=== PATIENT | female | born 1945 | race Caucasian/White ===

== ENCOUNTER → 2016-07-04 | Outpatient (CLI) | payer MEDICARE, OTHER ==
[2016-07-04 13:59] LABS: Basophils % (A) 1 %; CH 32.1; CHCM 32.6; Eosinophils # (A) 0.1 k/uL (0-0.7); Eosinophils % (A) 3 %; HCT 39.4 % (34.0-46.0); HDW 2.33; Luc # (Auto) 0.14; Luc % (Auto) 3; Lymphocytes # (A) 1.5 k/uL (1.0-4.8); Lymphocytes % (A) 34 %; MCH 32.8 pg (25.0-35.0); MCHC 33.1 g/dL (31.0-37.0); Mean Platelet Volume 6.7; Monocytes # (A) 0.4 k/uL (0-1.0); Monocytes % (A) 10 %; Neutrophils # (A) 2.1 k/uL (1.3-7.7); Neutrophils % (A) 49 %; RBC 3.98 m/uL (3.80-5.40); RDW 12.9 % (11.5-15.5); WBC 4.4 k/uL (3.8-10.6); WBC (Perox) 4.39
[2016-07-04 14:14] LABS: Blood Urea Nitrogen 21 mg/dL (7-17); Non-African American GFR(MDRD) >60 (>60 ml/min/1.73 sqM); Potassium 4.5 mmol/L (3.5-5.1)
== END | disposition home or self-care (01) ==
LOC: LABPAT 13:29
PROVIDERS: ATTEND Anesthesiology
DX: Z01.812 Encounter for preprocedural laboratory examination (principal); Z01.818 Encounter for other preprocedural examination
CPT/HCPCS: 36415; 82565; 84132; 84520; 85025; 86850; 86900; 86901

== ENCOUNTER 2016-07-08 06:08 | Day surgery (SDC) | payer MEDICARE, OTHER ==
[2016-07-02 09:14] VITALS: BMI 23.3
[~2016-07-08 06:08] MED LIST: DEXAMETHASONE SOD PHOSPHATE 10 MG/ML 1 ML VIAL IV ONE; HEPARIN SODIUM,PORCINE 5,000 UNIT/ML 1 ML VIAL SQ ONE; LACTATED RINGERS 1,000 ML IV SCH; ONDANSETRON 4 MG/2 ML VIAL IVP ONE; ceFAZolin 2 GM in SODIUM CHLORIDE 0.9% 100 ML IVPB ONE
[2016-07-08 06:50] LABS: Glucose,Whole Blood 137 mg/dL (75-99)
[2016-07-08] MEDS ORDERED: LIDOCAINE 1% 20 ML VIAL (10MG/ML) FOR IV START INTRADERMA ONE (06:51)
--- NOTE | 2016-07-08 08:02 | P.GSHP ---
History of Present Illness H&P Date: 07/08/16 Chief Complaint: Incisional hernia This a 70-year-old female developed an incisional hernia. The hernias located near the umbilicus. - Constitutional Constitutional: Reports as per HPI Past Medical History Past Medical History: CVA/TIA, Diabetes Mellitus, Hyperlipidemia, Hypertension, Osteoarthritis (OA) Additional Past Medical History / Comment(s): VARICOSE VEINS, hx bowel obstruction and had TIA after surgery in 11/2015- some loss of memory, irregular bowel movements, blockage of left carotid artery, hx anemia History of Any Multi-Drug Resistant Organisms: None Reported Past Surgical History: Adenoidectomy, Appendectomy, Bowel Resection, Breast Surgery, Tonsillectomy Additional Past Surgical History / Comment(s): MARANDA BREAST Biopsy, lumpectomy rt lumpectomy, HEMORRHOIDECTOMY, fx LEFT ANKLE ORIF, RT THUMB TENDON, NEUROMA RT FOOT, LEFT OVARY AND TUBE removed. , LASER SURG RIGHT LEG VEINS., bowel surgery for twisted bowel 1960, bowel resection 11/2015, Past Anesthesia/Blood Transfusion Reactions: No Reported Reaction Additional Past Anesthesia/Blood Transfusion Reaction / Comment(s): . Past Psychological History: Anxiety Smoking Status: Former smoker Past Alcohol Use History: None Reported Additional Past Alcohol Use History / Comment(s): quit smoking 1991,smoked approx 25 yrs- 1ppd Past Drug Use History: None Reported - Past Family History Father Family Medical History: Cancer Additional Family Medical History / Comment(s): KIDNEY CA Mother Family Medical History: Cancer Additional Family Medical History / Comment(s): OVARIAN CA, LEUKEMIA Medications and Allergies Home Medications Medication Instructions Recorded Confirmed Type Aspirin EC [Ecotrin Low Dose] 81 mg PO W/SUPPER 08/03/14 07/08/16 History Atorvastatin [Lipitor] 40 mg PO HS 08/03/14 07/08/16 History Cyanocobalamin [Vitamin B-12] 500 mcg PO QAM 09/14/14 07/08/16 History Ferrous Sulfate [Iron (65 MG 325 mg PO DAILY 09/14/14 07/08/16 History Elemental)] ALPRAZolam [Xanax] 0.25 mg PO TID 07/02/16 07/08/16 History Apixaban [Eliquis] 5 mg PO BID 07/02/16 07/08/16 History Cholecalciferol [Vitamin D3] 1,000 unit PO DAILY 07/02/16 07/08/16 History Cranberry Fruit Extract [Cranberry] 500 mg PO W/SUPPER 07/02/16 07/08/16 History Diltiazem Cd [Cardizem Cd] 180 mg PO DAILY 07/02/16 07/08/16 History Insulin Lispro [humaLOG Kwikpen] 100 unit SQ ACHS PRN 07/02/16 07/08/16 History Lisinopril [Zestril] 10 mg PO DAILY 07/02/16 07/08/16 History [place]-3 Acid Ethyl Esters [Lovaza] 2 gm PO BID 07/02/16 07/08/16 History Potassium Chloride [Klor-Con 20] 20 meq PO DAILY 07/02/16 07/08/16 History Sertraline [Zoloft] 50 mg PO BID 07/02/16 07/08/16 History Sucralfate [Carafate] 2 tsp PO BID 07/02/16 07/08/16 History Tamsulosin [Flomax] 0.4 mg PO DAILY 07/02/16 07/08/16 History sulfaSALAzine [Azulfidine] 500 mg PO Q6HR 07/02/16 07/08/16 History Allergies Allergy/AdvReac Type Severity Reaction Status Date / Time amoxicillin trihydrate Allergy Unknown Rash/Hives Verified 07/08/16 06:28 [From Augmentin] naproxen Allergy Unknown Itching Verified 07/08/16 06:28 nystatin Allergy Unknown Red Verified 07/08/16 06:28 Burning Skin and Rash potassium clavulanate Allergy Unknown Rash/Hives Verified 07/08/16 06:28 [From Augmentin] potassium clavulanate Allergy Rash/Hives Uncoded 07/08/16 06:28 Surgical - Exam Vital Signs Temp Pulse Resp BP Pulse Ox 97.9 F 95 16 140/79 98 07/08/16 06:33 07/08/16 06:33 07/08/16 06:33 07/08/16 06:33 07/08/16 06:33 - General well developed, no distress - Eyes PERRL - ENT normal pinna - Respiratory normal expansion - Cardiovascular Rhythm: regular - Abdomen Abdomen: soft, non tender Hernia: incisional, reducible Results - Labs Abnormal Lab Results - Last 24 Hours (Table) 07/08/16 Range/Units 06:43 POC Glucose (mg/dL) 137 H (75-99) mg/dL Assessment and Plan Plan: Incisional hernia. We'll perform laparoscopic robotic assistance repair.
[2016-07-08] MEDS ORDERED: PROPOFOL 10 MG/ML 20 ML VIAL IV ONE (08:05)
[2016-07-08] MEDS ORDERED: PHENYLEPHRINE-0.9% NACL SYG 1 MG/10 ML SYRINGE ONE (08:05)
[2016-07-08] MEDS ORDERED: MIDAZOLAM 2 MG/2 ML VIAL ONE (08:05)
[2016-07-08] MEDS ORDERED: fentaNYL (PF) 50 MCG/ML 2 ML AMP ONE (08:05)
[2016-07-08] MEDS ORDERED: ROCURONIUM BROMIDE 10 MG/ML 10 ML VIAL IV ONE (08:05)
[2016-07-08] MEDS ORDERED: NEOSTIGMINE 1 MG/ML 10 ML VIAL ONE (08:05)
[2016-07-08] MEDS ORDERED: GLYCOPYRROLATE 0.2 MG/ML 2 ML VIAL ONE (08:05)
[2016-07-08] MEDS ORDERED: ePHEDrine 50 MG/ML 1 ML AMP ONE (08:05)
[2016-07-08] MEDS ORDERED: LIDOCAINE 1% INJ 10MG/ML (20 ML MDV) ONE (08:05)
[2016-07-08] MEDS ORDERED: SUCCINYLCHOLINE CHLORIDE 100 MG/5 ML SYR IV ONE (08:05)
[2016-07-08] MEDS ORDERED: BUPIVACAIN-EPI 0.25%-1:200,000 30 ML VIAL SQ ONE (08:48)
[2016-07-08] MEDS ORDERED: LACTATED RINGERS 1,000 ML IV ONE (09:26)
--- NOTE | 2016-07-08 09:52 | P.OP ---
Date of Procedure: 07/08/16 Preoperative Diagnosis: Incisional hernia Postoperative Diagnosis: Incisional hernia Procedure(s) Performed: Laparoscopic robotic-assisted repair of incisional hernia Implants: Anesthesia: TALA Surgeon: Curt Morelos Estimated Blood Loss (ml): 5 Pathology: none sent Condition: stable Disposition: PACU Indications for Procedure: Operative Findings: Description of Procedure: The patient's placed on the operating table in the supine position. She received general anesthesia. Her abdomen was prepped and draped in usual sterile fashion. A skin incision was made in the left upper quadrant and using a 5 mm optical trocar under direct visitation. Cavity is entered. Upon entering the peritoneal cavity the abdomen insufflated and then the laparoscope was placed cavity. Next a 8 mm robotic trochars placed in the left lower quadrant and a 12 mm trochars placed in the left lateral position. The original 5 ohmmeter trocar was exchanged for a 8 mm trocar. The patient's placed in left side up position. The patient was undocked the robot. The patient had a large incisional hernia. The fascial defect was then closed using oh stranding suture. The repair was then buttressed with ventral light ST mesh this is secured with 20 the lock suture. The patient was then undocked the robot and the needles were retrieved. The 12 mm trocar site was closed with the Avery Venegas suture passer. The trochars withdrawn. Skin was closed interrupted 3-0 Monocryl suture. Dermabond was applied. Patient top she will was sent to recovery in stable condition.
[2016-07-08 10:11] VITALS: TEMP 97.2
[2016-07-08] MEDS: HYDROmorphone 1 MG/ML 1 ML SYRINGE IVP PRN ×3 (10:29→10:53)
[2016-07-08 11:33] VITALS: RESP 16
[2016-07-08 11:57] LABS: Glucose,Whole Blood 235 mg/dL (75-99)
[2016-07-08] MEDS ORDERED: INSULIN LISPRO (humaLOG) 300 UNIT/3 ML VIAL SQ ONE (12:00)
[2016-07-08 13:07] VITALS: BP 109/60; PULSE 95
== END 2016-07-08 13:46 | disposition home or self-care (01) ==
LOC: OR 06:08
PROVIDERS: ATTEND Surgery
DX: K43.2 Incisional hernia without obstruction or gangrene (principal); Z86.73 Personal history of transient ischemic attack (TIA), and cerebral infarction without residual deficits; E11.9 Type 2 diabetes mellitus without complications; E78.5 Hyperlipidemia, unspecified; M19.90 Unspecified osteoarthritis, unspecified site; F41.9 Anxiety disorder, unspecified; Z87.891 Personal history of nicotine dependence; Z79.02 Long term (current) use of antithrombotics/antiplatelets; Z79.82 Long term (current) use of aspirin; Z79.899 Other long term (current) drug therapy; Z88.0 Allergy status to penicillin; Z88.8 Allergy status to other drugs, medicaments and biological substances
CPT/HCPCS: 49654; C1781; J2250; J1644; J1100; J2710; J0690; J2405; J2001; J3010; J1170; J2370; J0330; J2704; 74020; 86850; 86900; 86901

== ENCOUNTER 2016-07-11 18:20 | Inpatient (IN) | payer MEDICARE, OTHER ==
[2016-07-11] MEDS ORDERED: SODIUM CHLORIDE 0.9% 1,000 ML IV STA (18:50)
--- NOTE | 2016-07-11 19:02 | ED ---
Abdominal Pain HPI - General Source: patient, RN notes reviewed Mode of arrival: ambulatory Limitations: no limitations <Ashley Tang - Last Filed: 07/11/16 21:17> <Ravindra Ordonez - Last Filed: 07/11/16 21:19> - General Chief Complaint: Abdominal Pain Stated Complaint: constipated Time Seen by Provider: 07/11/16 18:41 - History of Present Illness Initial Comments: 70-year-old female presents to the emergency department with a chief complaint of constipation. Patient has been having constipation for the last 2 days. Patient had a ventral hernia repaired by Dr. valenzuela on Thursday. Patient states she's taken laxatives and stool softener with no bowel movement. Patient states she just feels as if she needs to go to the bathroom. Patient had states she did feel nauseous no vomiting. Patient denies any fever chills. Patient states her abdomen is now more painful than it has since the procedure. Patient states she was concerned about not using the bathroom so she thought that she should be seen.Patient denies any recent fever, chills, shortness of breath, chest pain, back pain, vomiting, numbness or tingling, dysuriaconstipation or diarrhea, headaches or visual changes, or any other current symptoms. (Ashley Tang) - Related Data Home Medications Medication Instructions Recorded Confirmed Aspirin EC [Ecotrin Low Dose] 81 mg PO W/SUPPER 08/03/14 07/11/16 Atorvastatin [Lipitor] 40 mg PO HS 08/03/14 07/11/16 Cyanocobalamin [Vitamin B-12] 500 mcg PO HS 09/14/14 07/11/16 Ferrous Sulfate [Iron (65 MG 325 mg PO DAILY 09/14/14 07/11/16 Elemental)] ALPRAZolam [Xanax] 0.25 mg PO TID PRN 07/02/16 07/11/16 Apixaban [Eliquis] 5 mg PO BID 07/02/16 07/11/16 Cholecalciferol [Vitamin D3] 1,000 unit PO DAILY 07/02/16 07/11/16 Cranberry Fruit Extract [Cranberry] 500 mg PO W/SUPPER 07/02/16 07/11/16 Diltiazem Cd [Cardizem Cd] 180 mg PO DAILY 07/02/16 07/11/16 Insulin Lispro [humaLOG Kwikpen] See Protocol SQ ACHS PRN 07/02/16 07/11/16 Lisinopril [Zestril] 10 mg PO DAILY 07/02/16 07/11/16 [place]-3 Acid Ethyl Esters [Lovaza] 2 gm PO BID 07/02/16 07/11/16 Potassium Chloride [Klor-Con 20] 20 meq PO DAILY 07/02/16 07/11/16 Sertraline [Zoloft] 100 mg PO DAILY 07/02/16 07/11/16 Tamsulosin [Flomax] 0.4 mg PO DAILY 07/02/16 07/11/16 sulfaSALAzine [Azulfidine] 500 mg PO Q6HR 07/02/16 07/11/16 HYDROcodone/APAP 7.5-325MG [[place] 1 tab PO TID PRN 07/11/16 07/11/16 7.5] Sucralfate [Carafate] 2 gm PO BID 07/11/16 07/11/16 Allergies Allergy/AdvReac Type Severity Reaction Status Date / Time amoxicillin trihydrate Allergy Unknown Rash/Hives Verified 07/11/16 18:52 [From Augmentin] naproxen Allergy Unknown Itching Verified 07/11/16 18:52 nystatin Allergy Unknown Red Verified 07/11/16 18:52 Burning Skin and Rash potassium clavulanate Allergy Unknown Rash/Hives Verified 07/11/16 18:52 [From Augmentin] potassium clavulanate Allergy Rash/Hives Uncoded 07/08/16 06:28 Review of Systems ROS Other: All systems not noted in ROS Statement are negative. <Ashley Tang - Last Filed: 07/11/16 21:17> ROS Other: All systems not noted in ROS Statement are negative. <Ravindra Ordonez - Last Filed: 07/11/16 21:19> ROS Statement: Those systems with pertinent positive or pertinent negative responses have been documented in the HPI. Past Medical History Past Medical History: CVA/TIA, Diabetes Mellitus, Hyperlipidemia, Hypertension, Osteoarthritis (OA) Additional Past Medical History / Comment(s): VARICOSE VEINS, hx bowel obstruction and had TIA after surgery in 11/2015- some loss of memory, irregular bowel movements, blockage of left carotid artery, hx anemia History of Any Multi-Drug Resistant Organisms: None Reported Past Surgical History: Adenoidectomy, Appendectomy, Bowel Resection, Breast Surgery, Hernia Repair, Tonsillectomy Additional Past Surgical History / Comment(s): MARANDA BREAST Biopsy, lumpectomy rt lumpectomy, HEMORRHOIDECTOMY, fx LEFT ANKLE ORIF, RT THUMB TENDON, NEUROMA RT FOOT, LEFT OVARY AND TUBE removed. , LASER SURG RIGHT LEG VEINS., bowel surgery for twisted bowel 1960, bowel resection 11/2015, Past Anesthesia/Blood Transfusion Reactions: No Reported Reaction Additional Past Anesthesia/Blood Transfusion Reaction / Comment(s): . Past Psychological History: Anxiety Smoking Status: Former smoker Past Alcohol Use History: None Reported Additional Past Alcohol Use History / Comment(s): quit smoking 1991,smoked approx 25 yrs- 1ppd Past Drug Use History: None Reported - Past Family History Father Family Medical History: Cancer Additional Family Medical History / Comment(s): KIDNEY CA Mother Family Medical History: Cancer Additional Family Medical History / Comment(s): OVARIAN CA, LEUKEMIA <Ashley Tang - Last Filed: 07/11/16 21:17> General Exam Limitations: no limitations <Ashley Tang - Last Filed: 07/11/16 21:17> <Ravindra Ordonez - Last Filed: 07/11/16 21:19> - General Exam Comments Initial Comments: General: The patient is awake and alert, in no distress, and does not appear acutely ill. Eye: Pupils are equal, round and reactive to light, extra-ocular movements are intact; there is normal conjunctiva bilaterally. No signs of icterus. Ears, nose, mouth and throat: There are moist mucous membranes and no oral lesions. Neck: The neck is supple, there is no tenderness. Cardiovascular: There is a regular rate and rhythm. No murmur, rub or gallop is appreciated. Respiratory: Lungs are clear to auscultation, respirations are non-labored, breath sounds are equal. No wheezes, stridor, rales, or rhonchi. Gastrointestinal: Well-healing surgical incisions., Soft, non-distended, non- tender abdomen without masses or organomegaly noted. There is no rebound or guarding present. No CVA tenderness. Bowel sounds are unremarkable. Back: There is no tenderness to palpation in the midline. There is no obvious deformity. No rashes noted. Musculoskeletal: Normal ROM, no tenderness, There is no pedal edema. There is no calf tenderness or swelling. Sensation intact. Pulses equal bilaterally 2+. Neurological: CN II-XII intact, There are no obvious motor or sensory deficits. Coordination appears grossly intact. Speech is normal. Skin: Skin is warm and dry and no rashes or lesions are noted. Psychiatric: Cooperative, appropriate mood & affect, normal judgment. (Ashley Tang) Course <Ashley Tang - Last Filed: 07/11/16 21:17> <Ravindra Ordonez - Last Filed: 07/11/16 21:19> Vital Signs 07/11/16 07/11/16 07/11/16 18:31 19:14 20:44 Temperature 97.7 F 98.1 F 98.5 F Pulse Rate 100 87 78 Respiratory 16 18 18 Rate Blood Pressure 123/69 120/66 129/62 O2 Sat by Pulse 97 95 96 Oximetry - Reevaluation(s) Reevaluation #1: 07/11/16 21:18 I did do a [id number]-qu-rvia evaluation the patient did discuss findings with her and her rounds area patient does demonstrate some tenderness palpation of the abdomen with some distention the examination the abdomen reveals no evidence of wound dehiscence no evidence of infection there is increased tympany however. The imaging does show evidence of ileus there is a question will transition at the splenic flexure. Patient be admitted for IV hydration she is not nauseated at this time she is passing a small amount of gas from her rectum. She'll be admitted for further evaluation. I did discuss case with Dr. Bautista. (Ravindra Ordonez) Medical Decision Making - Lab Data Result diagrams: 07/11/16 18:57 07/11/16 18:57 - Radiology Data Radiology results: report reviewed, image reviewed <Ashley Tang - Last Filed: 07/11/16 21:17> - Lab Data Result diagrams: 07/11/16 18:57 07/11/16 18:57 <Ravindra Ordonez - Last Filed: 07/11/16 21:19> - Medical Decision Making 70-year-old female presents for constipation. At this time CAT scan is reviewed additional ileus. At this time we did talk to on-call surgeon regarding the case. We did discuss admission. We'll continue IV hydration for the patient. Patient family in agreement with the plan. (Ashley Tang) - Lab Data Lab Results 07/11/16 07/11/16 Range/Units 18:57 18:57 WBC 6.9 (3.8-10.6) k/uL RBC 3.70 L (3.80-5.40) m/uL Hgb 12.0 (11.4-16.0) gm/dL Hct 35.4 (34.0-46.0) % MCV 95.5 (80.0-100.0) fL MCH 32.3 (25.0-35.0) pg MCHC 33.9 (31.0-37.0) g/dL RDW 13.0 (11.5-15.5) % Plt Count 279 (150-450) k/uL Neutrophils % 66 % Lymphocytes % 19 % Monocytes % 9 % Eosinophils % 4 % Basophils % 1 % Neutrophils # 4.6 (1.3-7.7) k/uL Lymphocytes # 1.3 (1.0-4.8) k/uL Monocytes # 0.6 (0-1.0) k/uL Eosinophils # 0.3 (0-0.7) k/uL Basophils # 0.0 (0-0.2) k/uL Sodium 134 L (137-145) mmol/L Potassium 4.6 (3.5-5.1) mmol/L Chloride 98 (98-107) mmol/L Carbon Dioxide 24 (22-30) mmol/L Anion Gap 12 mmol/L BUN 18 H (7-17) mg/dL Creatinine 0.60 (0.52-1.04) mg/dL Est GFR (MDRD) Af Amer >60 (>60 ml/min/1.73 sqM) Est GFR (MDRD) Non-Af >60 (>60 ml/min/1.73 sqM) Glucose 129 H (74-99) mg/dL Calcium 9.7 (8.4-10.2) mg/dL Total Bilirubin 0.4 (0.2-1.3) mg/dL AST 33 (14-36) U/L ALT 56 H (9-52) U/L Alkaline Phosphatase 102 (38-126) U/L Total Protein 6.8 (6.3-8.2) g/dL Albumin 4.1 (3.5-5.0) g/dL Disposition Time of Disposition: 20:46 Decision Date: 07/11/16 Decision Time: 20:46 <Ashley Tang - Last Filed: 07/11/16 21:17> <Ravindra Ordonez - Last Filed: 07/11/16 21:19> Clinical Impression: Ileus, postoperative, Abdominal pain, Constipation Disposition: ADMITTED IP TO THIS [facility] Condition: Stable Referrals: Ravindra Weaver MD [Primary Care Provider] - 1-2 days
[2016-07-11 19:05] LABS: Basophils % (A) 1 %; CH 32.2; CHCM 33.9; Eosinophils # (A) 0.3 k/uL (0-0.7); Eosinophils % (A) 4 %; HCT 35.4 % (34.0-46.0); HDW 2.24; Luc # (Auto) 0.14; Luc % (Auto) 2; Lymphocytes # (A) 1.3 k/uL (1.0-4.8); Lymphocytes % (A) 19 %; MCH 32.3 pg (25.0-35.0); MCHC 33.9 g/dL (31.0-37.0); MCV 95.5 fL (80.0-100.0); Mean Platelet Volume 7.2; Monocytes # (A) 0.6 k/uL (0-1.0); Monocytes % (A) 9 %; Neutrophils # (A) 4.6 k/uL (1.3-7.7); Neutrophils % (A) 66 %; WBC 6.9 k/uL (3.8-10.6); WBC (Perox) 7.59
[2016-07-11 19:20] LABS: ALT 56 U/L (9-52); AST 33 U/L (14-36); Alkaline Phosphatase 102 U/L (38-126); Anion Gap 12 mmol/L; Blood Urea Nitrogen 18 mg/dL (7-17); Calcium 9.7 mg/dL (8.4-10.2); Carbon Dioxide 24 mmol/L (22-30); Chloride 98 mmol/L (98-107); Glucose 129 mg/dL (74-99); Non-African American GFR(MDRD) >60 (>60 ml/min/1.73 sqM); Potassium 4.6 mmol/L (3.5-5.1); Sodium 134 mmol/L (137-145); Total Bilirubin 0.4 mg/dL (0.2-1.3); Total Protein 6.8 g/dL (6.3-8.2)
[2016-07-11] MEDS ORDERED: RX INFO: IV CONTRAST WAS GIVEN 1 EACH MISC MISCELLANE PRN (19:24)
--- NOTE | 2016-07-11 19:45 | XR ---
EXAMINATION TYPE: XR abdomen 2V DATE OF EXAM: 07/11/2016 COMPARISON: NONE INDICATION: Pain TECHNIQUE: 2 view abdomen upright and supine views FINDINGS: Are prominent loops of colon in supine view. In the upright view there appear to be some prominent ai r-fluid levels with dilated small bowel within the midabdomen in addition to the air-fluid levels wit hin the colon. Correlate for ileus versus obstruction. Psoas margins are normal. No organomegaly is present. IMPRESSION: 1. Prominent loops of bowel which contain air-fluid levels in both colon and dilated small bowel loop s. Partial small bowel obstruction should be considered. Ileus should be considered. Follow-up is rec ommended.
--- NOTE | 2016-07-11 20:37 | CT ---
EXAMINATION TYPE: CT abdomen pelvis w con DATE OF EXAM: 07/11/2016 COMPARISON: NONE INDICATION: Hernia repair 3 days ago, no bowel movement since. DLP: 1122.00 mGycm, Automated exposure control for dose reduction was used. CONTRAST: 100 mL of Omnipaque 300. Study performed without Oral Contrast TECHNIQUE: Axial images were obtained from above the diaphragm to the pubic rami in the axial plane a t 5 mm thick sections. Reconstructed images are reviewed on the computer in the coronal plane. FINDINGS: Limited CT sections are obtained the lung bases. The lung bases are clear. CT ABDOMEN: Liver: Normal Spleen: There is a hypodense area with peripheral enhancement could be a hemangioma or complex cyst. Other etiologies are not excluded. This area appears to enhance symmetrically with the spleen on yasmani yed images suggesting hemangioma. Pancreas: Pancreas atrophy is present. Adrenal glands: The adrenal glands are normal. Gallbladder: Surgically absent Kidneys: No masses are evident. No hydronephrosis is present. No cysts are present. Delayed images were obtained through the kidneys, which remain unremarkable. Aorta: Vascular calcification is within the aorta. Inferior vena cava: Normal. CT PELVIS: The colon is dilated and fluid-filled. Small bowel loops are prominent and dilated in the pelvis . Th ere appears to be a transition in the mid sigmoid colon. This appears to be best visualized on sequen ce 5 image 61 right hemipelvis. A segment of sigmoid colon visualized sequence 3 image 59 through 62 has an small caliber which dilates to a larger caliber with debris just proximal. This is over a paula rt segment which appears to have small caliber descending colon. However at the splenic flexure the c olon is dilated which is another area of transition. A right lower quadrant anastomosis of the colon appears widely open. Appendix: Not visualized Urinary bladder: Normal as visualized Genitourinary structures: Uterus appears normal. Adnexal regions are clear. Osseous structures: No suspicious lytic or sclerotic lesions. Facet degenerative changes are in the l ower lumbar spine. Within the anterior abdominal wall is a hypodense collection as well as small air-fluid level. There may be association with a rent in the anterior abdominal wall. Series 3 image 42. Hematoma or seroma is favored. Incarcerated mesenteric fat could be considered. No loops of bowel are identified. IMPRESSIONS: 1. Dilated small bowel loops and colon. Postop ileus could be considered. 2. Zones of transition appear to be at the splenic flexure within the proximal descending colon and w ithin the right lower quadrant sigmoid colon. The anastomosis does not appear to be a focal transitio n. 3. Anterior abdominal wall seroma or hematoma. Mesenteric fat hernia is considered less likely. No as sociated loop of bowel is evident.
[2016-07-11] MEDS ORDERED: ONDANSETRON 4 MG/2 ML VIAL IVP PRN (20:47)
[2016-07-11] MEDS ORDERED: NALOXONE 0.4 MG/ML 1 ML VIAL IV PRN (20:47)
[2016-07-11] MEDS ORDERED: ACETAMINOPHEN TAB 325 MG TAB PO PRN (20:47)
[2016-07-11] MEDS ORDERED: ALPRAZolam 0.25 MG TAB PO PRN (20:48)
[2016-07-11] MEDS ORDERED: NON-FORMULARY DRUG (Omega-3 Acid Ethyl Esters [Lovaza] 2 GM) PO SCH (21:00)
[2016-07-11 22:20] VITALS: BMI 23.7
[2016-07-11] MEDS: ATORVASTATIN 40 MG TAB PO SCH (22:33)
[2016-07-11] MEDS: SODIUM CHLORIDE 0.9% 1,000 ML IV SCH (22:33)
[2016-07-11] MEDS: CYANOCOBALAMIN 500 MCG TAB PO SCH (22:33)
[2016-07-11] MEDS: SUCRALFATE 1 GM TAB PO SCH (22:34)
[2016-07-11] MEDS: APIXABAN 5 MG TAB PO SCH (22:34)
[2016-07-11] MEDS: sulfaSALAzine 500 MG TAB PO SCH (22:40)
[2016-07-11] MEDS: HYDROmorphone 1 MG/ML 1 ML SYRINGE IV PRN (22:41)
[2016-07-12] MEDS: HYDROmorphone 1 MG/ML 1 ML SYRINGE IV PRN (03:27)
[2016-07-12] MEDS: SODIUM CHLORIDE 0.9% 1,000 ML IV SCH ×3 (05:04→21:04)
[2016-07-12] MEDS: sulfaSALAzine 500 MG TAB PO SCH ×4 (05:24→23:19)
[2016-07-12 07:09] LABS: Glucose,Whole Blood 133 mg/dL (75-99)
[2016-07-12] MEDS: HYDROcodone/APAP 5-325MG 1 EACH TAB PO PRN ×3 (07:19→21:05)
[2016-07-12] MEDS: APIXABAN 5 MG TAB PO SCH ×2 (09:30→20:58)
[2016-07-12] MEDS: POTASSIUM CHLORIDE ER 20 MEQ TAB.ER PO SCH (09:30)
[2016-07-12] MEDS: PANTOPRAZOLE 40 MG/10 ML VIAL IV SCH (09:30)
[2016-07-12] MEDS: DILTIAZEM CD 180 MG CAP.ER.24H PO SCH (09:30)
[2016-07-12] MEDS: CHOLECALCIFEROL 1,000 UNIT TAB PO SCH (09:31)
[2016-07-12] MEDS: SERTRALINE 100 MG TAB PO SCH (09:31)
[2016-07-12] MEDS: FERROUS SULFATE 325 MG TAB PO SCH (09:31)
[2016-07-12] MEDS: TAMSULOSIN 0.4 MG CAP.ER.24H PO SCH (09:31)
[2016-07-12] MEDS: SUCRALFATE 1 GM TAB PO SCH ×2 (09:31→20:58)
[2016-07-12] MEDS: LISINOPRIL 10 MG TAB PO SCH (10:39)
[2016-07-12 11:34] LABS: Glucose,Whole Blood 150 mg/dL (75-99)
--- NOTE | 2016-07-12 11:38 | P.GSHP ---
History of Present Illness H&P Date: 07/12/16 Chief Complaint: Abdominal pain, constipation The patient is status post ventral herniorrhaphy. She presented to the emergency room because she was having increasing pain in her bowels have not moved. Some nausea but no vomiting. No chest pain or shortness of breath. She feels somewhat better today. - Review of Systems All systems: negative Past Medical History Past Medical History: CVA/TIA, Diabetes Mellitus, Hyperlipidemia, Hypertension, Osteoarthritis (OA) Additional Past Medical History / Comment(s): VARICOSE VEINS, hx bowel obstruction and had TIA after surgery in 11/2015- some loss of memory, irregular bowel movements, blockage of left carotid artery, hx anemia History of Any Multi-Drug Resistant Organisms: None Reported Past Surgical History: Adenoidectomy, Appendectomy, Bowel Resection, Breast Surgery, Hernia Repair, Tonsillectomy Additional Past Surgical History / Comment(s): MARANDA BREAST Biopsy, lumpectomy rt lumpectomy, HEMORRHOIDECTOMY, fx LEFT ANKLE ORIF, RT THUMB TENDON, NEUROMA RT FOOT, LEFT OVARY AND TUBE removed. , LASER SURG RIGHT LEG VEINS., bowel surgery for twisted bowel 1960, bowel resection 11/2015, bleeding ulcer Past Anesthesia/Blood Transfusion Reactions: No Reported Reaction Additional Past Anesthesia/Blood Transfusion Reaction / Comment(s): . Past Psychological History: Anxiety Smoking Status: Former smoker Past Alcohol Use History: None Reported Additional Past Alcohol Use History / Comment(s): quit smoking 1991,smoked approx 25 yrs- 1ppd Past Drug Use History: None Reported - Past Family History Father Family Medical History: Cancer Additional Family Medical History / Comment(s): KIDNEY CA Mother Family Medical History: Cancer Additional Family Medical History / Comment(s): OVARIAN CA, LEUKEMIA Medications and Allergies Home Medications Medication Instructions Recorded Confirmed Type Aspirin EC [Ecotrin Low Dose] 81 mg PO W/SUPPER 08/03/14 07/11/16 History Atorvastatin [Lipitor] 40 mg PO HS 08/03/14 07/11/16 History Cyanocobalamin [Vitamin B-12] 500 mcg PO HS 09/14/14 07/11/16 History Ferrous Sulfate [Iron (65 MG 325 mg PO DAILY 09/14/14 07/11/16 History Elemental)] ALPRAZolam [Xanax] 0.25 mg PO TID PRN 07/02/16 07/11/16 History Apixaban [Eliquis] 5 mg PO BID 07/02/16 07/11/16 History Cholecalciferol [Vitamin D3] 1,000 unit PO DAILY 07/02/16 07/11/16 History Cranberry Fruit Extract [Cranberry] 500 mg PO W/SUPPER 07/02/16 07/11/16 History Diltiazem Cd [Cardizem Cd] 180 mg PO DAILY 07/02/16 07/11/16 History Insulin Lispro [humaLOG Kwikpen] See Protocol SQ ACHS PRN 07/02/16 07/11/16 History Lisinopril [Zestril] 10 mg PO DAILY 07/02/16 07/11/16 History [place]-3 Acid Ethyl Esters [Lovaza] 2 gm PO BID 07/02/16 07/11/16 History Potassium Chloride [Klor-Con 20] 20 meq PO DAILY 07/02/16 07/11/16 History Sertraline [Zoloft] 100 mg PO DAILY 07/02/16 07/11/16 History Tamsulosin [Flomax] 0.4 mg PO DAILY 07/02/16 07/11/16 History sulfaSALAzine [Azulfidine] 500 mg PO Q6HR 07/02/16 07/11/16 History HYDROcodone/APAP 7.5-325MG [[place] 1 tab PO TID PRN 07/11/16 07/11/16 History 7.5] Sucralfate [Carafate] 2 gm PO BID 07/11/16 07/11/16 History Allergies Allergy/AdvReac Type Severity Reaction Status Date / Time amoxicillin trihydrate Allergy Unknown Rash/Hives Verified 07/11/16 22:20 [From Augmentin] naproxen Allergy Unknown Itching Verified 07/11/16 22:20 nystatin Allergy Unknown Red Verified 07/11/16 22:20 Burning Skin and Rash potassium clavulanate Allergy Unknown Rash/Hives Verified 07/11/16 22:20 [From Augmentin] potassium clavulanate Allergy Rash/Hives Uncoded 07/11/16 22:20 Surgical - Exam Osteopathic Statement: *. No significant issues noted on an osteopathic structural exam other than those noted in the History and Physical/Consult. Vital Signs Temp Pulse Resp BP Pulse Ox 97.7 F 100 16 123/69 97 07/11/16 18:31 07/11/16 18:31 07/11/16 18:31 07/11/16 18:31 07/11/16 18:31 - General well developed, well nourished, no distress - Eyes normal ocular movement - ENT normal mucosa - Neck trachea midline - Respiratory normal respiratory effort, clear to auscultation absent: wheezing - Cardiovascular Rhythm: regular - Abdomen Abdomen: soft, tender (Mainly incisional), bowel sounds, distended (She somewhat distended with tympany to percussion) Results - Labs 07/11/16 18:57 07/11/16 18:57 Abnormal Lab Results - Last 24 Hours (Table) 07/11/16 07/11/16 07/12/16 Range/Units 18:57 18:57 07:06 RBC 3.70 L (3.80-5.40) m/uL Sodium 134 L (137-145) mmol/L BUN 18 H (7-17) mg/dL Glucose 129 H (74-99) mg/dL POC Glucose (mg/dL) 133 H (75-99) mg/dL ALT 56 H (9-52) U/L 07/12/16 Range/Units 11:30 RBC (3.80-5.40) m/uL Sodium (137-145) mmol/L BUN (7-17) mg/dL Glucose (74-99) mg/dL POC Glucose (mg/dL) 150 H (75-99) mg/dL ALT (9-52) U/L Diabetes panel 07/11/16 Range/Units 18:57 Sodium 134 L (137-145) mmol/L Potassium 4.6 (3.5-5.1) mmol/L Chloride 98 (98-107) mmol/L Carbon Dioxide 24 (22-30) mmol/L BUN 18 H (7-17) mg/dL Creatinine 0.60 (0.52-1.04) mg/dL Glucose 129 H (74-99) mg/dL Calcium 9.7 (8.4-10.2) mg/dL AST 33 (14-36) U/L ALT 56 H (9-52) U/L Alkaline Phosphatase 102 (38-126) U/L Total Protein 6.8 (6.3-8.2) g/dL Albumin 4.1 (3.5-5.0) g/dL Calcium panel 07/11/16 Range/Units 18:57 Calcium 9.7 (8.4-10.2) mg/dL Albumin 4.1 (3.5-5.0) g/dL Pituitary panel 07/11/16 Range/Units 18:57 Sodium 134 L (137-145) mmol/L Potassium 4.6 (3.5-5.1) mmol/L Chloride 98 (98-107) mmol/L Carbon Dioxide 24 (22-30) mmol/L BUN 18 H (7-17) mg/dL Creatinine 0.60 (0.52-1.04) mg/dL Glucose 129 H (74-99) mg/dL Calcium 9.7 (8.4-10.2) mg/dL Adrenal panel 07/11/16 Range/Units 18:57 Sodium 134 L (137-145) mmol/L Potassium 4.6 (3.5-5.1) mmol/L Chloride 98 (98-107) mmol/L Carbon Dioxide 24 (22-30) mmol/L BUN 18 H (7-17) mg/dL Creatinine 0.60 (0.52-1.04) mg/dL Glucose 129 H (74-99) mg/dL Calcium 9.7 (8.4-10.2) mg/dL Total Bilirubin 0.4 (0.2-1.3) mg/dL AST 33 (14-36) U/L ALT 56 H (9-52) U/L Alkaline Phosphatase 102 (38-126) U/L Total Protein 6.8 (6.3-8.2) g/dL Albumin 4.1 (3.5-5.0) g/dL - Imaging CT scan - abdomen: report reviewed, image reviewed Assessment and Plan (1) Abdominal pain Status: Acute (2) Constipation Status: Acute (3) Ileus, postoperative Status: Acute Plan: There are dilated loops of small bowel along with a incisional seroma. We will recheck an abdominal x-ray on her and start her on some clear liquids. Advance as tolerated. Hopefully ready to go home by tomorrow.
[2016-07-12 12:18] LABS: CH 31.7; CHCM 32.5; HCT 35.9 % (34.0-46.0); HDW 2.26; HGB 11.8 gm/dL (11.4-16.0); MCH 32.3 pg (25.0-35.0); MCHC 32.9 g/dL (31.0-37.0); MCV 98.1 fL (80.0-100.0); RBC 3.66 m/uL (3.80-5.40); RDW 12.5 % (11.5-15.5)
--- NOTE | 2016-07-12 12:22 | XR ---
EXAMINATION TYPE: XR abdomen 2V DATE OF EXAM: 07/12/2016 COMPARISON: July 11, 2016 HISTORY: Pain TECHNIQUE: Supine and upright views of the abdomen are submitted. FINDINGS: Again noted is dilated small and large bowel. The findings are nonspecific and could reflect ileus. O bstruction is not excluded. No convincing evidence for pneumoperitoneum. No unusual calcifications. The lung bases are clear. The osseous structures are intact. IMPRESSION: 1. Again noted is dilated small and large bowel. The findings are nonspecific and could reflect ileu s. Obstruction is not excluded.
[2016-07-12 12:26] LABS: Anion Gap 11 mmol/L; Blood Urea Nitrogen 16 mg/dL (7-17); Calcium 9.2 mg/dL (8.4-10.2); Carbon Dioxide 22 mmol/L (22-30); Chloride 104 mmol/L (98-107); Glucose 136 mg/dL (74-99); Non-African American GFR(MDRD) >60 (>60 ml/min/1.73 sqM); Potassium 4.6 mmol/L (3.5-5.1); Sodium 137 mmol/L (137-145)
[2016-07-12 16:40] LABS: Glucose,Whole Blood 123 mg/dL (75-99)
[2016-07-12] MEDS ORDERED: NON-FORMULARY DRUG (Cranberry Fruit Extract [Cranberry] 500 MG) PO SCH (17:30)
[2016-07-12] MEDS: ASPIRIN 81 MG CHEW PO SCH (17:56)
--- NOTE | 2016-07-12 18:09 | CONS ---
DATE OF CONSULTATION: 07/12/2016 REASON FOR CONSULTATION: Medical management requested by Dr. Bautista. CONSULTATION: This is a 70-year-old patient of Dr. Weaver who underwent on 07/08/[address]nia repair by Dr. Morelos. Patient since left the hospital, never had a bowel movement and abdomen is distended, even though she is taking a diet. Decided to come into the ER. Patient was given laxatives here and had a very large bowel movement. Patient's chronic stable medical conditions include hyperlipidemia, hypertension, nonobstructive carotid artery disease on the left side, anxiety, osteoarthritis. Patient had no fever. No nausea or vomiting. Patient otherwise on a soft diet. REVIEW OF SYSTEMS: CONSTITUTIONAL: Tired. HEENT: None. RESPIRATORY: None. CARDIOVASCULAR: None. GASTROINTESTINAL: As above. GENITOURINARY: None. MUSCULOSKELETAL: Aches and pains in multiple joints. DERMATOLOGIC: None. HEMATOLOGIC: None. LYMPHATIC: None. PSYCHIATRY: Anxiety. NEUROLOGICAL: None. Past history of stroke hyperlipidemia, hypertension, nonobstructive left carotid stenosis, anxiety, osteoarthritis. PAST SURGICAL HISTORY: Adenoidectomy, appendectomy, bowel resection, breast surgery, hernia repair, tonsillectomy, bilateral breast biopsy, right breast lumpectomy, hemorrhoidectomy, left ankle ORIF, right thumb tendon repair, neuroma, right foot surgery, left ovary and tube removed, laser surgery right leg veins, bowel surgery for twisted bowel, bowel resection, bleeding peptic ulcer. SOCIAL HISTORY: The patient smoked a pack a day for 25 years; stopped in 1991, alcohol none. Patient lives with 3 kids at home and a son who is handicapped. Family history of kidney cancer. HOME MEDICATIONS: Vitamin B12 one hundred mcg p.o. daily, cranberry 500 mcg with supper, Lipitor 40 mg q.h.s., aspirin 81 mg at supper, Carafate 2 gm p.o. b.i.d., [place] 7.5 one tablet p.o. t.i.d., Zoloft 100 mg p.o. daily, Azulfidine 500 mg p.o. q.6, Flomax 0.4 mg p.o. daily, potassium 20 mEq p.o. daily, Lovaza 2 gm p.o. b.i.d., Zestril 10 mg daily, iron 325 p.o. daily, Cardizem CD 180 mg p.o. daily, vitamin D3 one thousand units p.o. daily, Eliquis 5 mg p.o. b.i.d., Xanax 0.25 p.o. t.i.d. p.r.n. ALLERGIES: AMOXICILLIN, NAPROXEN, NYSTATIN, POTASSIUM. On examination, temperature 97.9, pulse 83, respirations 16, blood pressure 120/69, pulse ox 97% on room air. GENERAL APPEARANCE: Average build, lying in bed, not in distress. EYES: Pupils equal, conjunctivae normal. HEENT: Oral cavity normal. NECK: JVD not raised. Mass not palpable. RESPIRATORY: Effort normal. LUNGS: Fair air entry. CARDIOVASCULAR: First and second sounds normal. No edema. ABDOMEN: Slightly minimal tenderness. Soft, liver and spleen not palpable. LYMPHATIC: No lymph node palpable in neck or axillae. PSYCHIATRY: Alert and oriented x3. Mood and affect normal. NEUROLOGICAL: Pupils equal. Cranial nerves grossly intact. Power and sensation grossly intact. MUSCULOSKELETAL: Evidence of osteoarthritis in multiple joints. INVESTIGATIONS: White count 6, hemoglobin 11.8, potassium 4.6. CT scan of the abdomen initially showed dilated small bowel loops and colon, anterior wall seroma or hematoma. ASSESSMENT: 1. Acute postoperative ileus, responded well to laxative and patient has had a large bowel movement. 2. Anterior abdominal wall seroma/hematoma. 3. Hyperlipidemia. 4. Essential hypertension. 5. Anxiety, not otherwise specified. 6. Osteoarthritis of multiple joints, bilateral. PLAN: Home medications are resumed. Patient responded well to laxatives. Care was discussed with the patient, encouraged to ambulate. Diet has been advanced per Surgery. Care was discussed with the patient. Thank you, Dr. Bautista.
[2016-07-12 20:14] LABS: Glucose,Whole Blood 187 mg/dL (75-99)
[2016-07-12] MEDS: CYANOCOBALAMIN 500 MCG TAB PO SCH (20:58)
[2016-07-12] MEDS: ATORVASTATIN 40 MG TAB PO SCH (20:58)
[2016-07-12] MEDS: INSULIN LISPRO (humaLOG) 300 UNIT/3 ML VIAL SQ SCH (20:59)
[2016-07-13] MEDS: SODIUM CHLORIDE 0.9% 1,000 ML IV SCH (03:56)
[2016-07-13] MEDS: sulfaSALAzine 500 MG TAB PO SCH ×4 (05:54→23:17)
[2016-07-13 06:56] LABS: Glucose,Whole Blood 128 mg/dL (75-99)
[2016-07-13] MEDS: INSULIN LISPRO (humaLOG) 300 UNIT/3 ML VIAL SQ SCH ×4 (07:17→20:07)
[2016-07-13] MEDS: LISINOPRIL 10 MG TAB PO SCH (07:43)
[2016-07-13] MEDS: DILTIAZEM CD 180 MG CAP.ER.24H PO SCH (07:43)
[2016-07-13] MEDS: APIXABAN 5 MG TAB PO SCH ×2 (07:43→20:09)
[2016-07-13] MEDS: PANTOPRAZOLE 40 MG/10 ML VIAL IV SCH (07:43)
[2016-07-13] MEDS: POTASSIUM CHLORIDE ER 20 MEQ TAB.ER PO SCH (07:43)
[2016-07-13] MEDS: HYDROcodone/APAP 5-325MG 1 EACH TAB PO PRN ×3 (07:44→18:27)
[2016-07-13] MEDS: SERTRALINE 100 MG TAB PO SCH (07:44)
[2016-07-13] MEDS: SUCRALFATE 1 GM TAB PO SCH ×2 (07:44→20:09)
[2016-07-13] MEDS: TAMSULOSIN 0.4 MG CAP.ER.24H PO SCH (08:51)
--- NOTE | 2016-07-13 10:31 | P.PN ---
Subjective The patient's feeling much better. She's had several loose bowel movements. No nausea or vomiting. She's having expected incisional pain. Objective - Vital Signs Vital signs: Vital Signs Temp 97.8 F 07/13/16 07:00 Pulse 86 07/13/16 07:00 Resp 16 07/13/16 07:00 BP 138/74 07/13/16 07:00 Pulse Ox 95 07/13/16 07:00 Intake & Output 07/12/16 07/13/16 07/13/16 18:59 06:59 18:59 Intake Total 200 1440 236 Balance 200 1440 236 Intake: IV 1440 Sodium Chloride 0.9% 1, 1440 000 ml @ 120 mls/hr IV . Q8H20M MCKENNA Rx#:[id number] Oral 200 236 Other: Voiding Method Toilet Toilet # Voids 2 2 # Bowel Movements 1 2 - Constitutional General appearance: Present: cooperative, no acute distress - Respiratory Respiratory: bilateral: CTA - Gastrointestinal Gastrointestinal Comment(s): She has firmness under the midline scar where the hernia had been reduced. Likely seroma General gastrointestinal: Present: normal bowel sounds, soft, tenderness ( Incisional) - Labs CBC & Chem 7: 07/12/16 09:53 07/12/16 09:53 Labs: Abnormal Lab Results - Last 24 Hours (Table) 07/12/16 07/12/16 07/12/16 Range/Units 09:53 09:53 11:30 RBC 3.66 L (3.80-5.40) m/uL Glucose 136 H (74-99) mg/dL POC Glucose (mg/dL) 150 H (75-99) mg/dL 07/12/16 07/12/16 07/13/16 Range/Units 16:38 20:12 06:53 RBC (3.80-5.40) m/uL Glucose (74-99) mg/dL POC Glucose (mg/dL) 123 H 187 H 128 H (75-99) mg/dL Assessment and Plan (1) Abdominal pain Status: Acute (2) Constipation Status: Acute (3) Ileus, postoperative Status: Acute Plan: Monitor diet. Progressing well. Likely discharge tomorrow.
[2016-07-13 11:18] LABS: Glucose,Whole Blood 205 mg/dL (75-99)
[2016-07-13] MEDS: FERROUS SULFATE 325 MG TAB PO SCH (12:48)
[2016-07-13] MEDS: CHOLECALCIFEROL 1,000 UNIT TAB PO SCH (12:48)
[2016-07-13 16:35] LABS: Glucose,Whole Blood 187 mg/dL (75-99)
[2016-07-13] MEDS: ASPIRIN 81 MG CHEW PO SCH (18:04)
[2016-07-13] MEDS: ATORVASTATIN 40 MG TAB PO SCH (20:09)
[2016-07-13] MEDS: CYANOCOBALAMIN 500 MCG TAB PO SCH (20:09)
[2016-07-13 20:24] LABS: Glucose,Whole Blood 182 mg/dL (75-99)
--- NOTE | 2016-07-13 22:58 | PN ---
DATE OF SERVICE: 07/13/2016 PRESENTING COMPLAINT: Medical management, status postop ileus. INTERVAL HISTORY: This is a patient who had an acute postop ileus status post anterior abdominal wall hernia repair. Today patient is awake, sitting up in bed. No acute distress noted or voiced. States she feels much better than she did when she was admitted. Tolerating her diet. Walking around in the room with no difficulties. Review of systems done for constitutional, cardiovascular, GI, pulmonary, with relevant findings as above. CURRENT MEDICATIONS: 1. [place] 5/325. 2. Eliquis 5 mg p.o. b.i.d. 3. Lipitor p.o. 40 mg at bedtime. 4. Cardizem CD 180 mg p.o. daily. 5. Vistaril 10 mg p.o. daily. 6. Zoloft 100 mg p.o. daily. 7. Flomax 0.4 mg p.o. daily. PHYSICAL EXAMINATION: VITAL SIGNS: Temperature 97.8, pulse 86, respirations 16, blood pressure 138/74, oxygen saturation 95% on room air. GENERAL APPEARANCE: Patient is sitting up in the bed, awake, alert, in no acute distress noted or voiced. EYES: Pupils equal. Conjunctivae normal. NECK: JVD not raised. Mass not palpable. Respiratory effort normal. LUNGS: Diminished breath sounds bilaterally. CARDIOVASCULAR: First and second sounds noted. No edema. ABDOMEN: Mildly distended. Soft, tender to palpation at the operative site. Liver and spleen not palpable. PSYCHIATRY: Alert and oriented x3. Mood and affect are normal. INVESTIGATIONS: Hemoglobin 11.8, sodium 137, BUN 16, creatinine 0.70. Accu-Cheks noted. ASSESSMENT: 1. Acute postoperative ileus, responding well to laxatives and patient has had large bowel movements. 2. Anterior abdominal wall seroma/hematoma. 3. Hyperlipidemia. 4. Essential hypertension. 5. Anxiety, not otherwise specified. 6. Osteoarthritis of multiple joints bilaterally. PLAN: Tentative plan for patient to go home tomorrow. Patient responded well to laxatives. Patient again encouraged to ambulate. Will follow. The patient was seen and examined by nurse practitioner, Fide Whitney, and all elements of the case discussed with attending, Dr. Cabrera.
[2016-07-14] MEDS: HYDROcodone/APAP 5-325MG 1 EACH TAB PO PRN ×4 (00:03→12:28)
[2016-07-14] MEDS: SODIUM CHLORIDE 0.9% 1,000 ML IV SCH ×3 (01:14→07:53)
[2016-07-14] MEDS: sulfaSALAzine 500 MG TAB PO SCH ×2 (05:32→11:45)
[2016-07-14 07:35] LABS: Glucose,Whole Blood 138 mg/dL (75-99)
[2016-07-14] MEDS: INSULIN LISPRO (humaLOG) 300 UNIT/3 ML VIAL SQ SCH ×2 (07:44→12:47)
[2016-07-14] MEDS: DILTIAZEM CD 180 MG CAP.ER.24H PO SCH (07:45)
[2016-07-14] MEDS: APIXABAN 5 MG TAB PO SCH (07:45)
[2016-07-14] MEDS: LISINOPRIL 10 MG TAB PO SCH (07:45)
[2016-07-14] MEDS: POTASSIUM CHLORIDE ER 20 MEQ TAB.ER PO SCH (07:46)
[2016-07-14] MEDS: SUCRALFATE 1 GM TAB PO SCH (07:46)
[2016-07-14] MEDS: SERTRALINE 100 MG TAB PO SCH (07:46)
[2016-07-14] MEDS: TAMSULOSIN 0.4 MG CAP.ER.24H PO SCH (07:47)
[2016-07-14 07:50] VITALS: BP 138/80; PULSE 84; RESP 20; TEMP 96.9
[2016-07-14] MEDS: PANTOPRAZOLE 40 MG/10 ML VIAL IV SCH (07:53)
--- NOTE | 2016-07-14 10:03 | PN ---
DATE OF SERVICE: 07/13/2016 ATTENDING NOTE: This patient was seen and examined by me on 07/13/16. I reviewed the note of my nurse practitioner, Ms. Loyd. Discussed additional findings as below. This is a patient status post incisional hernia repair, admitted with postop ileus. The patient has a good response to laxatives. Tolerating a diet. Had good bowel movement. Has got a binder in place. ON EXAMINATION: ABDOMEN: Soft, nontender. Bowel sounds are present. Lungs are clear. ASSESSMENT: Status post postoperative ileus, responded well to laxatives. Other medical conditions stable. PLAN: Patient encouraged to ambulate, doing well.
[2016-07-14 11:38] LABS: Glucose,Whole Blood 188 mg/dL (75-99)
[2016-07-14] MEDS: CHOLECALCIFEROL 1,000 UNIT TAB PO SCH (11:45)
[2016-07-14] MEDS: FERROUS SULFATE 325 MG TAB PO SCH (11:45)
--- NOTE | 2016-07-14 11:56 | P.PN ---
Progress Note - Text The patient doing better today. Her constipation is improved. She has minimal abdominal pain. Patiently discharged home today
--- NOTE | 2016-07-14 11:57 | P.DS ---
Providers Date of admission: 07/11/16 21:19 Expected date of discharge: 07/14/16 Attending physician: Lisa Bautista Consults: 07/12/16 11:32 Consult Physician Routine Consulting Provider: Stephen Cabrera Consult Reason/Comments: medical management Do you want consulting provider notified?: Yes Primary care physician: Ravindra Rivera [facility] Hospital Course: This a 70-year-old female who was readmitted to the hospital for complaints of abdominal pain and constipation. Patient was status post laparoscopic robotic- assisted repair of incisional hernia. Patient developed severe constipation causing abdominal pain she is admitted hospital. Please see hospital chart for details. Patient Condition at Discharge: Good Plan - Discharge Summary New Discharge Prescriptions: No Action Atorvastatin [Lipitor] 40 mg PO HS Aspirin EC [Ecotrin Low Dose] 81 mg PO W/SUPPER Cyanocobalamin [Vitamin B-12] 500 mcg PO HS Ferrous Sulfate [Iron (65 MG Elemental)] 325 mg PO DAILY ALPRAZolam [Xanax] 0.25 mg PO TID PRN PRN Reason: Anxiety Apixaban [Eliquis] 5 mg PO BID Cholecalciferol [Vitamin D3] 1,000 unit PO DAILY Cranberry Fruit Extract [Cranberry] 500 mg PO W/SUPPER Diltiazem Cd [Cardizem Cd] 180 mg PO DAILY Insulin Lispro [humaLOG Kwikpen] See Protocol SQ ACHS PRN PRN Reason: SUGAR-HIGH Lisinopril [Zestril] 10 mg PO DAILY [place]-3 Acid Ethyl Esters [Lovaza] 2 gm PO BID Potassium Chloride [Klor-Con 20] 20 meq PO DAILY Sertraline [Zoloft] 100 mg PO DAILY sulfaSALAzine [Azulfidine] 500 mg PO Q6HR Tamsulosin [Flomax] 0.4 mg PO DAILY Sucralfate [Carafate] 2 gm PO BID HYDROcodone/APAP 7.5-325MG [[place] 7.5] 1 tab PO TID PRN PRN Reason: Pain Discharge Medication List Aspirin EC [Ecotrin Low Dose] 81 mg PO W/SUPPER 08/03/14 [History] Atorvastatin [Lipitor] 40 mg PO HS 08/03/14 [History] Cyanocobalamin [Vitamin B-12] 500 mcg PO HS 09/14/14 [History] Ferrous Sulfate [Iron (65 MG Elemental)] 325 mg PO DAILY 09/14/14 [History] ALPRAZolam [Xanax] 0.25 mg PO TID PRN 07/02/16 [History] Apixaban [Eliquis] 5 mg PO BID 07/02/16 [History] Cholecalciferol [Vitamin D3] 1,000 unit PO DAILY 07/02/16 [History] Cranberry Fruit Extract [Cranberry] 500 mg PO W/SUPPER 07/02/16 [History] Diltiazem Cd [Cardizem Cd] 180 mg PO DAILY 07/02/16 [History] Insulin Lispro [humaLOG Kwikpen] See Protocol SQ ACHS PRN 07/02/16 [History] Lisinopril [Zestril] 10 mg PO DAILY 07/02/16 [History] [place]-3 Acid Ethyl Esters [Lovaza] 2 gm PO BID 07/02/16 [History] Potassium Chloride [Klor-Con 20] 20 meq PO DAILY 07/02/16 [History] Sertraline [Zoloft] 100 mg PO DAILY 07/02/16 [History] Tamsulosin [Flomax] 0.4 mg PO DAILY 07/02/16 [History] sulfaSALAzine [Azulfidine] 500 mg PO Q6HR 07/02/16 [History] HYDROcodone/APAP 7.5-325MG [[place] 7.5] 1 tab PO TID PRN 07/11/16 [History] Sucralfate [Carafate] 2 gm PO BID 07/11/16 [History] Follow up Appointment(s)/Referral(s): Ravindra Weaver MD [Primary Care Provider] - 1-2 days
--- NOTE | 2016-07-15 06:43 | PN ---
DATE OF SERVICE: 07/14/2016 PRESENTING COMPLAINT: Medical management, status post ileus. INTERVAL HISTORY: This is a patient who had acute postop ileus, status post anterior abdominal wall hernia repair. Today, patient is awake, sitting up in bed. No acute distress noted or voiced. States she feels much better than she did when she was admitted. Tolerating her diet. Walking around the room with no difficulties. Review of systems done for constitutional, cardiovascular, GI, pulmonary with relevant findings as above. CURRENT MEDICATIONS: [place], Eliquis, Lipitor, Cardizem, ( ), Zoloft, Flomax. PHYSICAL EXAM: VITAL SIGNS: Temperature 96.9, pulse 84, respiratory rate 20, blood pressure 138/80, oxygen saturation 97% on room air. GENERAL APPEARANCE: Patient sitting up in bed, breathing easily, appears happy. EYES: Pupils equal. Conjunctivae normal. NECK: JVD not raised. Mass not palpable. RESPIRATORY: Effort normal. LUNGS: Diminished breath sounds bilaterally. CARDIOVASCULAR: First and second sounds noted. Trace edema. ABDOMEN: Soft, nontender. Liver and spleen not palpable. PSYCHIATRY: Alert and oriented x3. Mood and affect normal INVESTIGATIONS: Accu-Cheks noted. ASSESSMENT: 1. Acute postoperative ileus, responding well to laxatives and patient has had large bowel movements. 2. Anterior abdominal wall seroma, hematoma, improving. 3. Hyperlipidemia. 4. Essential hypertension. 5. Anxiety, not otherwise specified. 6. Osteoarthritis of multiple joints bilaterally. PLAN: Patient is going home today. She responded well to laxatives. Encouraged to ambulate and drink plenty of fluids. Patient was seen and examined by nurse practitioner, Fide Loyd, and all elements of the case discussed with attending, Dr. Cabrera.
--- NOTE | 2016-07-15 08:02 | PN ---
DATE OF SERVICE: 07/14/2016 Attending note: This patient was seen and examined by me earlier today. I reviewed the note of my nurse practitioner, Ms. Loyd. Discuss additional findings below. The patient is status post ( ), doing much better. Had a further bowel movement up to the bathroom. Looks comfortable. On exam: ABDOMEN: Soft, nontender CARDIOVASCULAR: First and second sounds normal. ASSESSMENT: Status post postop ileus day which is doing much better. PLAN: If discharged, should follow with the family doctor.
== END 2016-07-14 14:22 | disposition home or self-care (01) | DRG 394 ==
LOC: EC 18:20 → 3SUR 21:19
PROVIDERS: ADMIT Surgery; ATTEND Surgery
DX: K91.89 Other postprocedural complications and disorders of digestive system (principal); K56.7 Ileus, unspecified; E11.9 Type 2 diabetes mellitus without complications; I10 Essential (primary) hypertension; K59.00 Constipation, unspecified; E78.5 Hyperlipidemia, unspecified; F41.9 Anxiety disorder, unspecified; I83.90 Asymptomatic varicose veins of unspecified lower extremity; M19.91 Primary osteoarthritis, unspecified site; Z86.73 Personal history of transient ischemic attack (TIA), and cerebral infarction without residual deficits; Z87.11 Personal history of peptic ulcer disease; Z87.891 Personal history of nicotine dependence; Z90.49 Acquired absence of other specified parts of digestive tract; Z90.721 Acquired absence of ovaries, unilateral; Z88.8 Allergy status to other drugs, medicaments and biological substances; Z88.1 Allergy status to other antibiotic agents; Z90.79 Acquired absence of other genital organ(s); Z79.01 Long term (current) use of anticoagulants; Z79.82 Long term (current) use of aspirin; Z79.899 Other long term (current) drug therapy; Z79.4 Long term (current) use of insulin; Y83.4 Other reconstructive surgery as the cause of abnormal reaction of the patient, or of later complication, without mention of misadventure at the time of the procedure
CPT/HCPCS: 36415; 74020; 74177; 80048; 80053; 85025; 85027

== ENCOUNTER → 2016-08-21 | Day surgery (SDC) | payer MEDICARE, OTHER ==
[2016-08-21 07:38] VITALS: RESP 16; BMI 23.7
[2016-08-21 09:22] VITALS: BP 134/72; PULSE 86; TEMP 97.8
--- NOTE | 2016-08-21 09:33 | MM ---
EXAMINATION TYPE: MG stereo VAD BX RT DATE OF EXAM: 08/21/2016 COMPARISON: Outside mammogram June 25, 2016 and older studies. CLINICAL HISTORY: Abnormal outside mammogram. TECHNIQUE: Stereotactic guided core biopsy of right breast with clip placement and follow-up two-view mammogram. FINDINGS: The procedure of stereotactic guided core biopsy was explained to the patient. Benefits, a lternatives, and risks were discussed. An informed consent was then obtained. Lesion is only seen on MLO and true lateral view and thus lateral approach was chosen. I performed th e localization, then surgeon, Dr. Mccartney performed the remainder of the procedure. A vacuum assi sted biopsy gun was used to obtain multiple core samples. The patient tolerated the procedure well without any immediate complication. The patient was kept in the radiology department for short stay after the procedure and then discharged home in stable condi tion. Targeted adjacent benign-appearing calcifications are identified in specimen mammogram. Post biopsy mammogram shows the clip to appear in satisfactory position relative to the targeted area of c oncern on the preprocedure images. IMPRESSION: SUCCESSFUL, UNCOMPLICATED STEREOTACTIC GUIDED CORE BIOPSY OF AREA OF CONCERN IN THE RIGHT BREAST, FUL L PATHOLOGY RESULTS TO FOLLOW. Low index of suspicion noted at time of procedure.
--- NOTE | 2016-08-21 11:25 | OP ---
ADDENDUM: Please note on right breast stereotactic breast biopsy, radiograph of the cores was performed. Two areas which were marking calcifications were identified and some increased density was identified which would be consistent with the nodular area we were attempting to sample. MTDD
--- NOTE | 2016-08-21 11:35 | PCN ---
The patient is a 70-year-old white female who was seen and evaluated for a mammographic abnormality noted in the right breast. The patient on physical examination of the right breast was noted to have a well healed scar from prior surgery. No axillary adenopathy of concern and no dominant masses or nodules of concern in the right breast. In the left breast likewise, she had a well healed scar from prior surgery. No dominant masses or nodules of concern and a normal axilla. The patient's mammogram was noted to have a nodular density seen posteriorly on the MLO view only of the right breast. This was in the mid portion of the breast. A diagnostic right breast mammogram was performed and spot compression cone down views of the right breast revealed a 5 x 6 mm posterior density seen on the compression view within the right breast. This was a new finding not present on the old mammograms. It was considered suspicious a BI-RAD 4 and mammotome biopsy of the spiculated density for histologic diagnosis was recommended. The patient was taken to the stereotactic unit and a stereotactic right breast biopsy was performed. The location of the lesion was seen on the MLO view posteriorly in the mid portion of the breast. The approach used was a lateral approach from the axillary region. The area was identified and targeted. The breast was prepped using Betadine and 1% lidocaine with epinephrine was used to anesthetize the breast and deep tissues. A mammotome 8 gauge biopsy device was used and the patient was on a low rad table. Multiple core biopsies were obtained. The specimen was not radiographed as this was a density and the tissue specimens, however, were evaluated and there appeared to be dense tissue within the cores of biopsy separate from the fatty looking breast tissue. A MammoMARK [id number] was placed and confirmed in correct location via radiographs postprocedure. The patient tolerated the procedure in stable condition. Specimen was sent to pathology and postoperative follow-up appointment with Dr. Lopez was scheduled. No complications were noted. JAS
== END ==
LOC: RADMAMWWP 07:01
PROVIDERS: ATTEND Surgery
DX: N60.31 Fibrosclerosis of right breast (principal); N60.21 Fibroadenosis of right breast; N60.91 Unspecified benign mammary dysplasia of right breast; D24.1 Benign neoplasm of right breast; R92.1 Mammographic calcification found on diagnostic imaging of breast; R92.8 Other abnormal and inconclusive findings on diagnostic imaging of breast
CPT/HCPCS: 88305; 19081; A4648; J2001

== ENCOUNTER → 2016-09-15 | Outpatient (CLI) | payer MEDICARE, OTHER ==
--- NOTE | 2016-09-15 15:57 | XR ---
EXAMINATION TYPE: XR chest 2V DATE OF EXAM: 09/15/2016 COMPARISON: Prior chest x-ray 11/19/2015 HISTORY: Cough TECHNIQUE: Frontal and lateral views of the chest are obtained. FINDINGS: There is no focal air space opacity, pleural effusion, or pneumothorax seen. The cardiac silhouette size is within normal limits. Suspect there are coronary artery calcifications. The aorta is dense. The patient is rotated. The osseous structures are intact. IMPRESSION: No acute cardiopulmonary process.
== END | disposition home or self-care (01) ==
LOC: RADXRMAIN 15:31
PROVIDERS: ATTEND Allergy & Immunology
DX: R05 Cough (principal)
CPT/HCPCS: 71020

== ENCOUNTER → 2017-07-23 | Outpatient (CLI) | payer MEDICARE, OTHER ==
[2017-07-23 11:44] VITALS: BP 152/84; PULSE 68; BMI 23.9
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
== END ==
LOC: WWCWWP 11:24
PROVIDERS: ATTEND Surgery
DX: Z53.9 Procedure and treatment not carried out, unspecified reason (principal)

== ENCOUNTER → 2018-01-22 | Outpatient (CLI) | payer MEDICARE, OTHER ==
[2018-01-22 10:39] VITALS: BP 152/87; PULSE 95; RESP 18; TEMP 96; BMI 25.1
--- NOTE | 2018-01-22 11:10 | P.GSHP ---
History of Present Illness H&P Date: 01/22/18 Chief Complaint: abnormal mammogram right breast Ann Marie is a 72-year-old white female who was initially seen for follow-up of radiographic abnormality in the right breast. The patient had undergone a right breast stereotactic core biopsy in 2017. This was felt to be benign. She has been followed conservatively. She is due at this time for a repeat right breast mammogram. Patient states she does not feel anything of concern in either breast. She denies any nipple discharge or skin changes. She was told verbally after the mammogram that it was stable and she could have repeat bilateral mammogram in 6 months time. The report is reviewed which revealed persistent architectural distortion within the lateral portion of the right breast with metallic microclip which has remained stable including a 5 mm nodular density superimposing the metallic microclip. No change from prior mammogram as far back as February 2017. New metallic microclip projecting laterally from the mammograms dated in 2016. Impression: Stable postoperative findings from the prior mammograms probable benign findings BIRADS 3 with postoperative changes recommendation follow-up bilateral mammogram in 6 months - Constitutional Comment: BMI 25.1 Constitutional: Denies chills, Denies fever - EENT Comment: wears glasses Eyes: denies blurred vision, denies pain Ears: deny: decreased hearing, tinnitus Ears, nose, mouth and throat: Denies headache, Denies sore throat - Breasts Breasts: bilateral: as per HPI - Cardiovascular Comment: atrial fibrillation Cardiovascular: Denies chest pain, Denies shortness of breath - Respiratory Respiratory: Denies cough, Denies 7 - Gastrointestinal Comment: chroans disease, uses cholestyramine twice a day to control diarrhea Gastrointestinal: Denies abdominal pain, Denies diarrhea, Denies nausea, Denies vomiting - Genitourinary (Female) Genitourinary: Denies dysuria, Denies hematuria - Menstruation Menstruation: Reports postmenopausal - Musculoskeletal Comment: arthritis - Integumentary Integumentary: Denies pruritus, Denies rash - Neurological Neurological: Denies numbness, Denies weakness - Psychiatric Psychiatric: Denies anxiety, Denies depression - Endocrine Endocrine: Denies fatigue, Denies weight change - Hematologic/Lymphatic Comment: eloquis has atrial Fib - Allergic/Immunologic Allergic/Immunologic: Reports as per HPI Past Medical History Past Medical History: CVA/TIA, Diabetes Mellitus, Hyperlipidemia, Hypertension, Osteoarthritis (OA) Additional Past Medical History / Comment(s): VARICOSE VEINS, hx bowel obstruction and had TIA after surgery in 11/2015- some loss of memory, irregular bowel movements, blockage of left carotid artery, hx anemia History of Any Multi-Drug Resistant Organisms: None Reported Past Surgical History: Adenoidectomy, Appendectomy, Bowel Resection, Breast Surgery, Hernia Repair, Tonsillectomy Additional Past Surgical History / Comment(s): MARANDA BREAST Biopsy, lumpectomy rt lumpectomy, HEMORRHOIDECTOMY, fx LEFT ANKLE ORIF, RT THUMB TENDON, NEUROMA RT FOOT, LEFT OVARY AND TUBE removed. , LASER SURG RIGHT LEG VEINS., bowel surgery for twisted bowel 1960, bowel resection 11/2015, bleeding ulcer .Pt states no history of breast cancer. Excisional of left breast Past Anesthesia/Blood Transfusion Reactions: No Reported Reaction Additional Past Anesthesia/Blood Transfusion Reaction / Comment(s): . Past Psychological History: Anxiety Smoking Status: Former smoker Past Alcohol Use History: None Reported Additional Past Alcohol Use History / Comment(s): quit smoking 1991,smoked approx 25 yrs- 1ppd Past Drug Use History: None Reported - Past Family History Father Family Medical History: Cancer Additional Family Medical History / Comment(s): KIDNEY CA Mother Family Medical History: Cancer Additional Family Medical History / Comment(s): OVARIAN CA, LEUKEMIA Medications and Allergies Home Medications Medication Instructions Recorded Confirmed Type Aspirin EC [Ecotrin Low Dose] 81 mg PO W/SUPPER 08/03/14 07/23/17 History Atorvastatin [Lipitor] 40 mg PO HS 08/03/14 07/23/17 History Cyanocobalamin [Vitamin B-12] 500 mcg PO HS 09/14/14 07/23/17 History Ferrous Sulfate [Iron (65 MG 325 mg PO DAILY 09/14/14 07/23/17 History Elemental)] ALPRAZolam [Xanax] 0.25 mg PO TID PRN 07/02/16 07/23/17 History Apixaban [Eliquis] 5 mg PO BID 07/02/16 07/23/17 History Cholecalciferol [Vitamin D3] 1,000 unit PO DAILY 07/02/16 07/23/17 History Cranberry Fruit Extract [Cranberry] 500 mg PO W/SUPPER 07/02/16 07/23/17 History Diltiazem Cd [Cardizem Cd] 180 mg PO DAILY 07/02/16 07/23/17 History Insulin Lispro [humaLOG Kwikpen] See Protocol SQ ACHS PRN 07/02/16 07/23/17 History Lisinopril [Zestril] 10 mg PO DAILY 07/02/16 07/23/17 History [place]-3 Acid Ethyl Esters [Lovaza] 2 gm PO BID 07/02/16 07/23/17 History Potassium Chloride [Klor-Con 20] 20 meq PO DAILY 07/02/16 07/23/17 History Sertraline [Zoloft] 100 mg PO DAILY 07/02/16 07/23/17 History Tamsulosin [Flomax] 0.4 mg PO DAILY 07/02/16 07/23/17 History sulfaSALAzine [Azulfidine] 500 mg PO Q6HR 07/02/16 07/23/17 History HYDROcodone/APAP 7.5-325MG [[place] 1 tab PO TID PRN 07/11/16 07/23/17 History 7.5] Sucralfate [Carafate] 2 gm PO BID 07/11/16 07/23/17 History Diphenoxylate HCl/Atropine 1 each PO BID 08/21/16 07/23/17 History [Lomotil 2.5-0.025 mg Tablet] Allergies Allergy/AdvReac Type Severity Reaction Status Date / Time amoxicillin trihydrate Allergy Unknown Rash/Hives Verified 01/22/18 10:34 [From Augmentin] naproxen Allergy Unknown Itching Verified 01/22/18 10:34 nystatin Allergy Unknown Red Verified 01/22/18 10:34 Burning Skin and Rash potassium clavulanate Allergy Unknown Rash/Hives Verified 01/22/18 10:34 [From Augmentin] latex Allergy Rash/Hives Verified 01/22/18 10:34 potassium clavulanate Allergy Rash/Hives Uncoded 01/22/18 10:34 Surgical - Exam Vital Signs Temp Pulse Resp BP Pulse Ox 96.0 F L 95 18 152/87 95 01/22/18 10:36 01/22/18 10:36 01/22/18 10:36 01/22/18 10:36 01/22/18 10:36 BMI 25.1 - General well developed, well nourished, no distress - Eyes normal ocular movement, no icteric - ENT no hearing loss, no congestion - Neck no masses, trachea midline - Respiratory normal respiratory effort, clear to auscultation - Cardiovascular Rhythm: regular Heart Sounds: normal: S1, S2 - Abdomen Abdomen: soft, non tender, no guarding, no rigid, no rebound - Integumentary no abnormal pigmentation - Neurologic no disoriented, no combative - Musculoskeletal normal gait, normal posture - Psychiatric oriented to time, oriented to person, oriented to place, speech is normal, memory intact breast exam: right breast: Multi-positional exam no dominant masses or nodules of concern, well healed scar from biopsy Right axilla: No adenopathy of concern Left breast: Multi-positional exam no dominant masses or nodules of concern Left axilla: No adenopathy of concern Results Rachana mammogram of the right breast report reviewed Assessment and Plan Assessment: Impression: 1. Fibrocystic breast changes bilaterally 2. Atrial fibrillation on Eliquis 3. arthritis 4. Crohn's disease Plan: 1. Repeat bilateral mammogram in 6 months 2. Physician exam in 6 months 3. Medical management of medical conditions CC:DR. Weaver ([place])
== END | disposition home or self-care (01) ==
LOC: WWCWWP 09:49
PROVIDERS: ATTEND Surgery
DX: Z53.9 Procedure and treatment not carried out, unspecified reason (principal)

== ENCOUNTER → 2018-08-20 | Outpatient (CLI) | payer MEDICARE, OTHER ==
[2018-08-20 15:01] VITALS: BP 155/82; PULSE 66; RESP 18; TEMP 98.2; BMI 24.5
--- NOTE | 2018-08-20 15:40 | P.PN ---
Subjective Progress Note Date: 08/20/18 Gina is a 72-year-old white female who is here for breast evaluation. She had a bilateral mammogram performed on . This was felt to be stable BIRADS 2 and annual bilateral mammogram was recommended. She does not feel anything of concern in her breast. She has no history of any breast pain, recent trauma, or infection. She did have a right breast stereotactic core biopsy in 2017 which was benign. Family history: mother: ovarian cancer and lymphoma father: kidney cancer Hormonal History: menarche: 13 G0 menopause: 49 BCP: 2 years hormones: none Past surgical history: 1. Tonsillectomy 2. Appendectomy 3. Bowel resection times two 4. Cholecystectomy 5. Herniorrhaphy. 6. Left oophrectomy Medical history: 1. CVA/TIA 2. Diabetes 3. Hyperlipidemia 4. Hypertension 5. Osteoarthritis Social history: Smoke: Negative, stopped 1990 Alcohol: none drugs: none Review of systems: HEENT: Wears glasses Lungs: Former smoker Heart: Negative GI: Bowel resection : left ovary removed Musculoskeletal: Osteoarthritis hematologic: none allergies: seasonal Psych: Negative Skin: Negative Review of systems: Objective - Vital Signs Vital signs: Vital Signs Temp 98.2 F 08/20/18 14:58 Pulse 66 08/20/18 14:58 Resp 18 08/20/18 14:58 BP 155/82 08/20/18 14:58 Pulse Ox 158 H 08/20/18 14:58 Intake & Output 08/19/18 08/20/18 08/20/18 18:59 06:59 18:59 Weight 141 kg - Exam BMI 24.6 - Constitutional General appearance: Present: average body habitus - EENT Eyes: Present: EOMI ENT: Present: hearing grossly normal - Respiratory Respiratory: bilateral: CTA - Cardiovascular Rhythm: regular Heart sounds: normal: S1, S2 - Gastrointestinal General gastrointestinal: Present: soft - Integumentary Integumentary: Present: normal turgor - Musculoskeletal Musculoskeletal: Present: gait normal - Psychiatric Psychiatric: Present: A&O x's 3, appropriate affect, intact judgment & insight - Additional findings Additional findings: Breast exam: Right breast: Multi-positional exam well-healed scar from prior biopsy fibrocystic changes no dominant masses or nodules of concern Right axilla: No adenopathy of concern Left breast: Well-healed scar from prior biopsy, multiple positional exam fibrocystic changes no dominant masses or nodules of concern Left axilla: No adenopathy of concern Assessment and Plan Assessment: Impression: 1. CVA/TIA 2. Diabetes 3. Hyperlipidemia 4. Hypertension 5. Osteoarthritis 6. Fibrocystic breast changes 7.family history of cancer Plan: 1. Bilateral mammogram and physician exam in 1 year 2. Medical management of medical conditions Cc: Dr.Michael Weaver
== END | disposition home or self-care (01) ==
LOC: WWCWWP 13:53
PROVIDERS: ATTEND Surgery
DX: Z53.9 Procedure and treatment not carried out, unspecified reason (principal)

== ENCOUNTER → 2019-08-04 | Outpatient (CLI) | payer MEDICARE, OTHER ==
[2019-08-04 11:06] VITALS: BP 163/82; PULSE 88; RESP 20; TEMP 97.8
--- NOTE | 2019-08-04 11:35 | P.PN ---
Subjective Progress Note Date: 08/04/19 Principal diagnosis: fibrocystic breast changes Gina is a 72-year-old white female who is here for breast evaluation. She had a bilateral mammogram performed on . This was felt to be stable BIRADS 2 and annual bilateral mammogram was recommended. She does not feel anything of concern in her breast. She had open surgical resection in 2001 of the right breast which was benign. In 2006 she had an open biopsy of the left breast which was also benign. She has no history of any breast pain, recent trauma, or infection. She is not complaining of any nipple discharge or skin changes. She did have a right breast stereotactic core biopsy in 2017 which was benign. Her mammogram report was reviewed. Caffeine: 20 ounce cup per day Smoke: none, no second hand smoke chocolate: daily Family history: mother: ovarian cancer and lymphoma father: kidney cancer brother: Down's syndrome/Alzheimer, no history of cancer Hormonal History: menarche: 13 G0 menopause: 49 BCP: 2 years hormones: none Past surgical history: 1. Tonsillectomy 2. Appendectomy 3. Bowel resection times two 4. Cholecystectomy 5. Herniorrhaphy. 6. Left oophrectomy Medical history: 1. CVA/TIA 2. Diabetes (n added metformin) 3. Hyperlipidemia 4. Hypertension 5. Osteoarthritis Social history: Smoke: Negative, stopped 1990 Alcohol: none drugs: none Review of systems: HEENT: Wears glasses Lungs: Former smoker Heart: Negative GI: Bowel resection, obstruction no cancer : left ovary removed Musculoskeletal: Osteoarthritis hematologic: none allergies: seasonal Psych: Negative Skin: Negative endocrine: diabetes Objective - Vital Signs Vital signs: Vital Signs Temp 97.8 F 08/04/19 11:03 Pulse 88 08/04/19 11:03 Resp 20 08/04/19 11:03 BP 163/82 08/04/19 11:03 Pulse Ox 99 08/04/19 11:03 Intake & Output 08/03/19 08/04/19 08/04/19 18:59 06:59 18:59 Weight 64.864 kg - Exam BMI 24.9 - Constitutional General appearance: Present: average body habitus - EENT Eyes: Present: EOMI ENT: Present: hearing grossly normal - Neck Neck: Present: normal ROM - Respiratory Respiratory: bilateral: CTA - Cardiovascular Rhythm: regular Heart sounds: normal: S1, S2 - Gastrointestinal General gastrointestinal: Present: normal bowel sounds, soft - Musculoskeletal Musculoskeletal: Present: gait normal - Psychiatric Psychiatric: Present: A&O x's 3, appropriate affect, intact judgment & insight - Additional findings Additional findings: Breast exam: BRA: 36B inspection: well healed scars bilateral, ptosis grade 2 bilateral Palpation: Right breast: Multi-positional exam well-healed scar from prior biopsy, no dominant masses or nodules of concern, fibrocystic changes Right axilla: No adenopathy of concern Left breast: There was scar from prior biopsy, no dominant masses or nodules of concern, fibrocystic changes Left axilla: No adenopathy of concern Assessment and Plan Assessment: Impression: 1. Fibrocystic breast changes 2. No radiographic evidence that would require biopsy 2. No changes in physical exam which would require biopsy 3. Diabetic 4. Hypertension 5. Osteoarthritis Plan: 1. Medical management of medical conditions 2. Repeat bilateral mammogram and physician exam in 1 year Cc: Dr. Weaver encounter 20 minutes, > 50% of time in planning and counselling
== END | disposition home or self-care (01) ==
LOC: WWCWWP 10:53
PROVIDERS: ATTEND Surgery
DX: Z53.9 Procedure and treatment not carried out, unspecified reason (principal)

== ENCOUNTER 2020-02-22 06:56 | Day surgery (SDC) | payer MEDICARE, OTHER ==
[2020-02-16 14:01] VITALS: BMI 25.7
[~2020-02-22 06:56] MED LIST changes: -DEXAMETHASONE SOD PHOSPHATE 10 MG/ML 1 ML VIAL IV ONE; -HEPARIN SODIUM,PORCINE 5,000 UNIT/ML 1 ML VIAL SQ ONE; -ONDANSETRON 4 MG/2 ML VIAL IVP ONE; -ceFAZolin 2 GM in SODIUM CHLORIDE 0.9% 100 ML IVPB ONE
[2020-02-22 07:25] VITALS: TEMP 97.4
[2020-02-22] MEDS ORDERED: PROPOFOL 10 MG/ML 20 ML VIAL IV ONE (07:35)
--- NOTE | 2020-02-22 07:41 | P.GSHP ---
History of Present Illness H&P Date: 02/22/20 CHIEF COMPLAINT: Colon screen HISTORY OF PRESENT ILLNESS: The patient is a 74-year-old female who presents for colon screen. Lower endoscopy was offered for further evaluation and management. PAST MEDICAL HISTORY: Please see list. PAST SURGICAL HISTORY: Please see list. MEDICATIONS: Please see list. ALLERGIES: Please see list. SOCIAL HISTORY: No illicit drug use FAMILY HISTORY: No reports of Crohn disease or ulcerative colitis. REVIEW OF ORGAN SYSTEMS: CONSTITUTIONAL: No reports of fevers or chills. PHYSICAL EXAM: VITAL SIGNS: Stable GENERAL: Well-developed pleasant in no acute distress. HEENT: No scleral icterus. Extraocular movements grossly intact. Moist buccal mucosa. NECK: Supple without lymphadenopathy. CHEST: Unlabored respirations. Equal bilateral excursions. CARDIOVASCULAR: Regular rate and rhythm. Distal 2+ pulses. ABDOMEN: Soft, nontender, nondistended. MUSCULOSKELETAL: No clubbing, cyanosis, or edema. ASSESSMENT: 1. Colon screen. PLAN: 1. Recommend proceeding with a lower endoscopy Past Medical History Past Medical History: CVA/TIA, Diabetes Mellitus, Hyperlipidemia, Hypertension, Osteoarthritis (OA) Additional Past Medical History / Comment(s): VARICOSE VEINS, hx bowel obstruction and had TIA after surgery in 11/2015- some loss of memory, irregular bowel movements, blockage of left carotid artery, anemia History of Any Multi-Drug Resistant Organisms: None Reported Past Surgical History: Adenoidectomy, Appendectomy, Bowel Resection, Breast Surgery, Hernia Repair, Tonsillectomy Additional Past Surgical History / Comment(s): MARANDA BREAST Biopsy, rt lumpectomy, HEMORRHOIDECTOMY, fx LEFT ANKLE ORIF, RT THUMB TENDON, NEUROMA RT FOOT, LEFT OVARY AND TUBE removed. , LASER SURG RIGHT LEG VEINS., bowel surgery for twisted bowel 1960, bowel resection 11/2015, bleeding ulcer,Excisional of left breast Past Anesthesia/Blood Transfusion Reactions: No Reported Reaction Additional Past Anesthesia/Blood Transfusion Reaction / Comment(s): no hx of problems with prior blood transfusion Smoking Status: Former smoker - Past Family History Father Family Medical History: Cancer Additional Family Medical History / Comment(s): KIDNEY CA Mother Family Medical History: Cancer Additional Family Medical History / Comment(s): OVARIAN CA, LEUKEMIA Medications and Allergies Home Medications Medication Instructions Recorded Confirmed Type Atorvastatin [Lipitor] 20 mg PO HS 08/03/14 02/16/20 History Cyanocobalamin [Vitamin B-12] 1,000 mg PO W/SUPPER 09/14/14 02/16/20 History Ferrous Sulfate [Iron (65 MG 65 mg PO W/SUPPER 09/14/14 02/16/20 History Elemental)] ALPRAZolam [Xanax] 0.25 mg PO TID PRN 07/02/16 02/16/20 History Apixaban [Eliquis] 5 mg PO BID 07/02/16 02/16/20 History Cholecalciferol [Vitamin D3] 1,000 unit PO W/SUPPER 07/02/16 02/16/20 History Cranberry Fruit Extract [Cranberry] 500 mg PO W/SUPPER 07/02/16 02/16/20 History Diltiazem Cd [Cardizem Cd] 180 mg PO QAM 07/02/16 02/16/20 History Insulin Lispro [humaLOG Kwikpen] See Protocol SQ ACHS PRN 07/02/16 02/16/20 History [place]-3 Acid Ethyl Esters [Lovaza] 1 gm PO BID 07/02/16 02/16/20 History Potassium Chloride [Klor-Con 20] 20 meq PO DAILY 07/02/16 02/16/20 History Sertraline [Zoloft] 100 mg PO BID 07/02/16 02/16/20 History Cholestyramine (with Sugar) 4 gm PO BID 02/01/18 02/16/20 History [Questran] Losartan Potassium [Cozaar] 25 mg PO QAM 02/01/18 02/16/20 History Alendronate Sodium 70 mg PO WEEKLY 08/04/19 02/16/20 History metFORMIN HCL [Glucophage] 500 mg PO DAILY 08/04/19 02/16/20 History Dapagliflozin Propanediol [Farxiga] 10 mg PO DAILY 02/16/20 02/16/20 History sulfaSALAzine [Azulfidine] 500 mg PO Q6HR 02/16/20 02/16/20 History Allergies Allergy/AdvReac Type Severity Reaction Status Date / Time amoxicillin trihydrate Allergy Unknown Rash/Hives Verified 02/22/20 07:13 [From Augmentin] naproxen Allergy Unknown Itching Verified 02/22/20 07:13 nystatin Allergy Unknown Red Verified 02/22/20 07:13 Burning Skin and Rash potassium clavulanate Allergy Unknown Rash/Hives Verified 02/22/20 07:13 [From Augmentin] latex Allergy Rash/Hives Verified 02/22/20 07:13 Surgical - Exam Vital Signs Temp Pulse Resp BP Pulse Ox 97.4 F L 89 16 151/85 98 02/22/20 07:24 02/22/20 07:24 02/22/20 07:24 02/22/20 07:24 02/22/20 07:24
[2020-02-22 07:42] LABS: Glucose,Whole Blood 136 mg/dL (75-99)
--- NOTE | 2020-02-22 08:11 | P.PCN ---
Date of Procedure: 02/22/20 Description of Procedure: PREOPERATIVE DIAGNOSIS: Personal history of colon polyps History of bowel resection POSTOPERATIVE DIAGNOSIS: Personal history of colon polyps History of bowel resection Sigmoid diverticulosis Rectal polyp Mid transverse colon polyp External/internal hemorrhoids, grade 3 History of right hemicolectomy OPERATION: Colonoscopy to the ileocolic anastomosis Colonoscopy with cold forceps biopsies SURGEON: Yulia De La Rosa MD. ANESTHESIA: MAC. INDICATIONS: The patient is an 74-year-old female who presents personal history of colon polyps. Last colonoscopy 5 years. Benefits and risks were described and informed consent was obtained. DESCRIPTION OF PROCEDURE: The patient had undergone Suprep. He had been brought into the operating room and laid in the left lateral decubitus position. After adequate intravenous sedation, the rectum was examined with 2% lidocaine jelly. External hemorrhoids were encountered. The rectal tone was within normal limits. No lesions were palpated in the rectal vault. An Olympus colonoscope was advanced until the cecum, ileocecal valve and appendiceal orifice were clearly viewed. The prep was good. Sigmoid diverticulosis was encountered. Multiple colonic polyps were found and removed with cold forceps. No evidence of focal colitis was found. Retroflexion of the scope demonstrated grade 3 internal hemorrhoids without active bleeding or inflammation. The colon was desufflated. The patient had tolerated the procedure well. Withdrawal time was over 6 minutes. FINDINGS: Aronchick preparation quality scale 2 (1-5) Internal hemorrhoids, grade 3 External hemorrhoids, grade 3. No arteriovenous malformations. Sigmoid diverticulosis, few Redundant hepatic flexure including sigmoid colon requiring abdominal pressure Removal of 2 polyps: - Cold forceps biopsy at 10 cm from the anal verge, 4 mm polyp, rectum - Cold forceps biopsy at mid transverse colon, 5 mm polyp. No focal colitis. RECOMMENDATIONS: Repeat colonoscopy in 3 years, 2023 Plan - Discharge Summary Discharge Rx Participant: No New Discharge Prescriptions: Continue Atorvastatin [Lipitor] 20 mg PO HS Cyanocobalamin [Vitamin B-12] 1,000 mg PO W/SUPPER Ferrous Sulfate [Iron (65 MG Elemental)] 65 mg PO W/SUPPER ALPRAZolam [Xanax] 0.25 mg PO TID PRN PRN Reason: Anxiety Apixaban [Eliquis] 5 mg PO BID Cholecalciferol [Vitamin D3 (25 Mcg = 1000 Iu)] 1,000 unit PO W/SUPPER Cranberry Fruit Extract [Cranberry] 500 mg PO W/SUPPER Diltiazem Cd [Cardizem CD] 180 mg PO QAM Insulin Lispro [humaLOG Kwikpen] See Protocol SQ ACHS PRN PRN Reason: SUGAR-HIGH [place]-3 Acid Ethyl Esters [Lovaza] 1 gm PO BID Potassium Chloride [Klor-Con 20] 20 meq PO DAILY Sertraline [Zoloft] 100 mg PO BID Losartan Potassium [Cozaar] 25 mg PO QAM Cholestyramine (with Sugar) [Questran Packet] 4 gm PO BID Alendronate Sodium 70 mg PO WEEKLY metFORMIN HCL [Glucophage] 500 mg PO DAILY Dapagliflozin Propanediol [Farxiga] 10 mg PO DAILY sulfaSALAzine [Azulfidine] 500 mg PO Q6HR Discharge Medication List Atorvastatin [Lipitor] 20 mg PO HS 08/03/14 [History] Cyanocobalamin [Vitamin B-12] 1,000 mg PO W/SUPPER 09/14/14 [History] Ferrous Sulfate [Iron (65 MG Elemental)] 65 mg PO W/SUPPER 09/14/14 [History] ALPRAZolam [Xanax] 0.25 mg PO TID PRN 07/02/16 [History] Apixaban [Eliquis] 5 mg PO BID 07/02/16 [History] Cholecalciferol [Vitamin D3 (25 Mcg = 1000 Iu)] 1,000 unit PO W/SUPPER 07/02/16 [History] Cranberry Fruit Extract [Cranberry] 500 mg PO W/SUPPER 07/02/16 [History] Diltiazem Cd [Cardizem CD] 180 mg PO QAM 07/02/16 [History] Insulin Lispro [humaLOG Kwikpen] See Protocol SQ ACHS PRN 07/02/16 [History] [place]-3 Acid Ethyl Esters [Lovaza] 1 gm PO BID 07/02/16 [History] Potassium Chloride [Klor-Con 20] 20 meq PO DAILY 07/02/16 [History] Sertraline [Zoloft] 100 mg PO BID 07/02/16 [History] Cholestyramine (with Sugar) [Questran Packet] 4 gm PO BID 02/01/18 [History] Losartan Potassium [Cozaar] 25 mg PO QAM 12/24/18 [History] Alendronate Sodium 70 mg PO WEEKLY 08/04/19 [History] metFORMIN HCL [Glucophage] 500 mg PO DAILY 08/04/19 [History] Dapagliflozin Propanediol [Farxiga] 10 mg PO DAILY 02/16/20 [History] sulfaSALAzine [Azulfidine] 500 mg PO Q6HR 02/16/20 [History] Follow up Appointment(s)/Referral(s): Yulia De La Rosa MD [STAFF PHYSICIAN] - As Needed Patient Instructions/Handouts: *Surgery [facility] - (Anesthesia) Endoscopy Discharge Instructions, Colonoscopy (DC), Colorectal Polyps (IP), Diverticulosis Diet (GEN), Diverticulosis (ED), Hemorrhoids (DC) Discharge Disposition: HOME SELF-CARE
[2020-02-22 08:30] VITALS: BP 127/77; PULSE 67; RESP 18
== END 2020-02-22 08:42 | disposition home or self-care (01) ==
LOC: ORWHC2ENDO 06:56
PROVIDERS: ATTEND Surgery Plastic and Reconstructive Surgery
DX: Z12.11 Encounter for screening for malignant neoplasm of colon (principal); D12.3 Benign neoplasm of transverse colon; K62.1 Rectal polyp; K57.30 Diverticulosis of large intestine without perforation or abscess without bleeding; K64.4 Residual hemorrhoidal skin tags; K64.2 Third degree hemorrhoids; Q43.8 Other specified congenital malformations of intestine; Z86.010 Personal history of colon polyps; E11.9 Type 2 diabetes mellitus without complications; E78.5 Hyperlipidemia, unspecified; I10 Essential (primary) hypertension; M19.90 Unspecified osteoarthritis, unspecified site; I69.311 Memory deficit following cerebral infarction; I83.90 Asymptomatic varicose veins of unspecified lower extremity; I65.22 Occlusion and stenosis of left carotid artery; D64.9 Anemia, unspecified; F32.9 Major depressive disorder, single episode, unspecified; Z88.0 Allergy status to penicillin; Z88.6 Allergy status to analgesic agent; Z88.8 Allergy status to other drugs, medicaments and biological substances; Z87.19 Personal history of other diseases of the digestive system; Z90.89 Acquired absence of other organs; Z90.49 Acquired absence of other specified parts of digestive tract; Z98.890 Other specified postprocedural states; Z87.81 Personal history of (healed) traumatic fracture; Z86.69 Personal history of other diseases of the nervous system and sense organs; Z90.721 Acquired absence of ovaries, unilateral; Z90.79 Acquired absence of other genital organ(s); Z87.898 Personal history of other specified conditions; Z87.891 Personal history of nicotine dependence; Z79.899 Other long term (current) drug therapy; Z79.01 Long term (current) use of anticoagulants; Z79.4 Long term (current) use of insulin; Z79.83 Long term (current) use of bisphosphonates; Z91.040 Latex allergy status; Z80.51 Family history of malignant neoplasm of kidney; Z80.41 Family history of malignant neoplasm of ovary; Z80.6 Family history of leukemia
CPT/HCPCS: 88305; 45380; J2704

== ENCOUNTER → 2020-08-23 | Outpatient (CLI) | payer MEDICARE, OTHER ==
[2020-08-23 12:24] VITALS: BP 147/80; PULSE 78; RESP 14; TEMP 97.9
--- NOTE | 2020-08-23 12:26 | P.PN ---
Subjective Progress Note Date: 08/23/20 Principal diagnosis: Fibrocystic breast changes fibrocystic breast changes Gina is a 74-year-old white female who is here for breast evaluation. She had a bilateral mammogram performed on . The report was reviewed although her films are not available. This was felt to be stable BIRADS 2 and annual bilateral mammogram was recommended. She does not feel anything of concern in her breast. She had open surgical resection in 2001 of the right breast which was benign. In 2006 she had an open biopsy of the left breast which was also benign. She has no history of any breast pain, recent trauma, or infection. She is not complaining of any nipple discharge or skin changes. She did have a right breast stereotactic core biopsy in 2017 which was benign. Her mammogram report was reviewed. Caffeine: 20 ounce cup per day Smoke: none, no second hand smoke chocolate: daily Family history: mother: ovarian cancer and lymphoma father: kidney cancer brother: Down's syndrome/Alzheimer, no history of cancer Hormonal History: menarche: 13 G0 menopause: 49 BCP: 2 years hormones: none Past surgical history: 1. Tonsillectomy 2. Appendectomy 3. Bowel resection times two 4. Cholecystectomy 5. Herniorrhaphy. 6. Left oophrectomy Medical history: 1. CVA/TIA 2. Diabetes (n added metformin) 3. Hyperlipidemia 4. Hypertension 5. Osteoarthritis Social history: Smoke: Negative, stopped 1990 Alcohol: none drugs: none Review of systems: HEENT: Wears glasses Lungs: Former smoker Heart: Negative GI: Bowel resection, obstruction no cancer : left ovary removed Musculoskeletal: Osteoarthritis hematologic: none allergies: seasonal Psych: Negative Skin: Negative endocrine: diabetes Objective - Constitutional General appearance: Present: average body habitus - EENT Eyes: Present: EOMI ENT: Present: hearing grossly normal - Neck Neck: Present: normal ROM - Respiratory Respiratory: bilateral: CTA - Cardiovascular Rhythm: regular Heart sounds: normal: S1, S2 - Integumentary Integumentary: Present: normal turgor - Musculoskeletal Musculoskeletal: Present: gait normal - Psychiatric Psychiatric: Present: A&O x's 3, appropriate affect, intact judgment & insight - Additional findings Additional findings: Breast Exam: BRA: 36B inspection: bilateral grade 2/3 ptosis palpation: right breast: Positional exam fibrocystic changes no dominant masses or nodules of concern Right axilla: No adenopathy of concern left breast: Multiple positional exam fibrocystic changes, no dominant masses or nodules of concern Left axilla: No adenopathy of concern Assessment and Plan Assessment: Impression: 1. Bilateral fibrocystic breast changes 2. Diabetes 3. History of CVA/TIA 4. Hypertension 5. Osteoarthritis 6. Hyperlipidemia 7. Bilateral mammogram 08-06-20; benign BIRAD 2 Plan: 1. Repeat bilateral mammogram and physician exam in 1 year CC: DR. Tapia
== END | disposition home or self-care (01) ==
LOC: WWCWWP 12:02
PROVIDERS: ATTEND Surgery
DX: N60.11 Diffuse cystic mastopathy of right breast (principal); N60.12 Diffuse cystic mastopathy of left breast; E11.9 Type 2 diabetes mellitus without complications; Z86.73 Personal history of transient ischemic attack (TIA), and cerebral infarction without residual deficits; I10 Essential (primary) hypertension; E78.5 Hyperlipidemia, unspecified; M19.90 Unspecified osteoarthritis, unspecified site; Z79.4 Long term (current) use of insulin; Z79.899 Other long term (current) drug therapy; Z88.1 Allergy status to other antibiotic agents; Z88.6 Allergy status to analgesic agent; Z91.040 Latex allergy status; Z87.891 Personal history of nicotine dependence

== ENCOUNTER → 2021-08-29 | Outpatient (CLI) | payer MEDICARE, OTHER ==
[2021-08-29 10:51] VITALS: BP 152/82; PULSE 74; RESP 17; TEMP 98.3
--- NOTE | 2021-08-29 10:56 | P.PN ---
Subjective Progress Note Date: 08/29/21 Principal diagnosis: fibrocystic breast changes fibrocystic breast changes Gina is a 75-year-old white female who is here for breast evaluation. She had a bilateral mammogram performed on 08-13-21. This was felt to be stable BIRADS 2 and annual bilateral mammogram was recommended. She does not feel anything of concern in her breast. She had open surgical resection in 2001 of the right breast which was benign. In 2006 she had an open biopsy of the left breast which was also benign. She has no history of any breast pain, recent trauma, or infection. She is not complaining of any nipple discharge or skin changes. She did have a right breast stereotactic core biopsy in 2017 which was benign. Her mammogram report was reviewed. Caffeine: 20 ounce cup per day Smoke: none, no second hand smoke chocolate: daily Family history: mother: ovarian cancer and lymphoma father: kidney cancer brother: Down's syndrome/Alzheimer, no history of cancer Hormonal History: menarche: 13 G0 menopause: 49 BCP: 2 years hormones: none Past surgical history: 1. Tonsillectomy 2. Appendectomy 3. Bowel resection times two 4. Cholecystectomy 5. Herniorrhaphy. 6. Left oophrectomy Medical history: 1. CVA/TIA 2. Diabetes (added metformin) 3. Hyperlipidemia 4. Hypertension 5. Osteoarthritis Social history: Smoke: Negative, stopped 1990 Alcohol: none drugs: none Review of systems: HEENT: Wears glasses Lungs: Former smoker Heart: Negative GI: Bowel resection, obstruction no cancer : left ovary removed Musculoskeletal: Osteoarthritis hematologic: none allergies: seasonal Psych: Negative Skin: Negative endocrine: diabetes Objective - Constitutional General appearance: Present: cooperative - EENT Eyes: Present: EOMI ENT: Present: hearing grossly normal - Neck Neck: Present: normal ROM - Respiratory Respiratory: bilateral: CTA - Cardiovascular Rhythm: regular Heart sounds: normal: S1, S2 - Gastrointestinal General gastrointestinal: Present: soft - Integumentary Integumentary: Present: normal turgor - Musculoskeletal Musculoskeletal: Present: gait normal - Psychiatric Psychiatric: Present: A&O x's 3, appropriate affect, intact judgment & insight - Additional findings Additional findings: Breast Exam: BRA: 36B inspection: Bilateral grade 2/3 ptosis Palpation: Right breast: Multiple positional exam fibrocystic changes no dominant masses or nodules of concern Right axilla: No adenopathy of concern Left breast: Well-healed scar from prior surgery, multiple positional exam fibrocystic changes no dominant masses or nodules of concern Left axilla: No adenopathy of concern Assessment and Plan Assessment: Impression: 1. CVA/TIA 2. Diabetes (added metformin) 3. Hyperlipidemia 4. Hypertension 5. Osteoarthritis 6. Fibrocystic breast changes Plan: Bilateral mammogram in 1 year with physician exam at that time Patient to follow up sooner any questions or concerns The patient's actual films are not available although the report has been reviewed. We are going to attempt to obtain the films to be able to view them. CC: Dr. Tapia
== END | disposition home or self-care (01) ==
LOC: WWCWWP 10:20
PROVIDERS: ATTEND Surgery
DX: Z53.9 Procedure and treatment not carried out, unspecified reason (principal)

== ENCOUNTER → 2022-09-18 | Outpatient (CLI) | payer MEDICARE, OTHER ==
--- NOTE | 2022-09-18 13:31 | P.PN ---
Subjective Progress Note Date: 09/18/22 Principal diagnosis: fibrocystic breast changes fibrocystic breast changes Gina is a 76-year-old white female who is here for breast evaluation. She had a bilateral mammogram performed on 09-18-22. This was felt to be stable BIRADS 2 and annual bilateral mammogram was recommended. She does not feel anything of concern in her breast. She had open surgical resection in 2001 of the right breast which was benign. In 2006 she had an open biopsy of the left breast which was also benign. She has no history of any breast pain, recent trauma, or infection. She is not complaining of any nipple discharge or skin changes. She did have a right breast stereotactic core biopsy in 2017 which was benign. Mammogram reviewed with radiology. Caffeine: 20 ounce cup per day Smoke: none, no second hand smoke chocolate: daily Family history: mother: ovarian cancer and lymphoma father: kidney cancer brother: Down's syndrome/Alzheimer, no history of cancer Hormonal History: menarche: 13 G0 menopause: 49 BCP: 2 years hormones: none Past surgical history: 1. Tonsillectomy 2. Appendectomy 3. Bowel resection times two 4. Cholecystectomy 5. Herniorrhaphy. 6. Left oophrectomy 7. cardiac bypass Medical history: 1. CVA/TIA 2. Diabetes (added metformin) 3. Hyperlipidemia 4. Hypertension 5. Osteoarthritis Social history: Smoke: Negative, stopped 1990 Alcohol: none drugs: none Review of systems: HEENT: Wears glasses Lungs: Former smoker Heart: Negative GI: Bowel resection, obstruction no cancer : left ovary removed Musculoskeletal: Osteoarthritis hematologic: none allergies: seasonal Psych: Negative Skin: Negative endocrine: diabetes Objective - Constitutional General appearance: Present: cooperative - EENT Eyes: Present: EOMI ENT: Present: hearing grossly normal - Neck Neck: Present: normal ROM - Respiratory Respiratory: bilateral: CTA - Cardiovascular Rhythm: regular Heart sounds: normal: S1, S2 - Integumentary Integumentary: Present: normal turgor - Musculoskeletal Musculoskeletal: Present: gait normal - Psychiatric Psychiatric: Present: A&O x's 3, appropriate affect, intact judgment & insight - Additional findings Additional findings: Breast Exam: BRA: 36B inspection: Bilateral grade 2/3 ptosis Palpation: Right breast: Multiple positional exam fibrocystic changes no dominant masses or nodules of concern Right axilla: No adenopathy of concern Left breast: Well-healed scar from prior surgery, multiple positional exam fibrocystic changes no dominant masses or nodules of concern Left axilla: No adenopathy of concern Assessment and Plan Assessment: Impression: 1. CVA/TIA 2. Diabetes (added metformin) 3. Hyperlipidemia 4. Hypertension 5. Osteoarthritis 6. Fibrocystic breast changes Plan: Bilateral mammogram in 1 year with physician exam at that time Patient to follow up sooner any questions or concerns CC: Dr. Tapia
--- NOTE | 2022-09-18 14:29 | MM ---
Reason for Exam: Screening (asymptomatic). Last mammogram was performed 2 year(s) and 2 month(s) ago. Patient History: Menarche at age 14. Patient has no children. Left ovary removed at age 39. Postmenopausal. 08/21/2016, Benign Core Biopsy on the right side. Mother had ovarian cancer, age 59. Risk Values: Sade 5 year model risk: 2.1%. NCI Lifetime model risk: 4.0%. Prior Study Comparison: 06/25/2016 Bilateral Screening Mammogram, [facility]. 08/06/2020 Bilateral Screening Mammogram, [facility]. Tissue Density: The breast tissue is heterogeneously dense. This may lower the sensitivity of mammography. Findings: Analyzed By CAD. There is no suspicious group of microcalcifications or new suspicious mass in either breast. Chronic nodularity within both breasts. Postbiopsy changes in the right breast with clip identified. Benign-appearing calcifications within both breasts. Overall Assessment: Benign, BI-RAD 2 Management: Screening Mammogram of both breasts in 1 year. A clinical breast exam by your physician is recommended on an annual basis and results should be correlated with mammographic findings. Note on Sade scores and lifetime risk: 1. A Sade score greater than 3% is considered moderate risk. If this is the case, consider specialist referral to assess eligibility for a risk reducing agent. If overall lifetime risk for the development of breast cancer is 20% or higher, the patient may qualify for future screening with alternating mammogram and breast MRI. Electronically signed and approved by: Amari Lewis D.O.
== END | disposition home or self-care (01) ==
LOC: RADMAMWWP 12:50
PROVIDERS: ATTEND Surgery
DX: Z12.31 Encounter for screening mammogram for malignant neoplasm of breast (principal); Z78.0 Asymptomatic menopausal state
CPT/HCPCS: 77063; 77067

== ENCOUNTER → 2022-09-18 | Outpatient (CLI) | payer MEDICARE, OTHER ==
[2022-09-18 13:20] VITALS: BP 94/63; PULSE 59; RESP 18
== END ==
LOC: WWCWWP 12:52
PROVIDERS: ATTEND Surgery
DX: Z53.9 Procedure and treatment not carried out, unspecified reason (principal)

== ENCOUNTER 2022-12-01 10:45 | Inpatient (IN) | payer MEDICARE, OTHER ==
[~2022-12-01 10:45] MED LIST changes: +HEPARIN SODIUM,PORCINE (1 ML) 2,500 UNIT in SODIUM CHLORIDE 0.9% 250 ML IRRIGATION PRN; +HEPARIN SODIUM,PORCINE 10,000 UNIT in SODIUM CHLORIDE 0.9% 1,000 ML IRRIGATION PRN; -LACTATED RINGERS 1,000 ML IV SCH
[2022-12-01] MEDS ORDERED: ASPIRIN 81 MG PO STA (11:48)
[2022-12-01] MEDS ORDERED: NITROGLYCERIN SL TABS 0.4 MG TAB SUBLINGUAL PRN ×2 (11:48→13:06)
--- NOTE | 2022-12-01 11:48 | ED ---
General Adult HPI - General Chief complaint: Shortness of Breath Stated complaint: SOB Time Seen by Provider: 12/01/22 10:57 Source: patient, RN notes reviewed Mode of arrival: EMS Limitations: no limitations - History of Present Illness Initial comments: Patient is a pleasant 77-year-old female presenting to the emergency department with concerns for dyspnea. Onset of symptoms was yesterday. Patient does have mild nonproductive cough. Patient is postoperative less than 1 week right hip surgery. Patient denies ever having chest discomfort. Patient did go to [facility]. Patient had elevated troponin there. Patient was transferred here for cardiac. Patient states dyspnea is resolved with oxygen. - Related Data Home Medications Medication Instructions Recorded Confirmed Atorvastatin [Lipitor] 10 mg PO HS 08/03/14 09/18/22 Cyanocobalamin [Vitamin B-12] 1,000 mg PO W/SUPPER 09/14/14 09/18/22 Ferrous Sulfate [Iron (65 MG 65 mg PO W/SUPPER 09/14/14 09/18/22 Elemental)] ALPRAZolam [Xanax] 0.25 mg PO TID PRN 07/02/16 09/18/22 Apixaban [Eliquis] 5 mg PO BID 07/02/16 09/18/22 Cholecalciferol [Vitamin D3 (25 1,000 unit PO W/SUPPER 07/02/16 09/18/22 Mcg = 1000 Iu)] Cranberry Fruit Extract [Cranberry] 500 mg PO W/SUPPER 07/02/16 09/18/22 Insulin Lispro [humaLOG Kwikpen] See Protocol SQ ACHS PRN 07/02/16 09/18/22 Potassium Chloride [Klor-Con 20] 20 meq PO DAILY 07/02/16 09/18/22 Sertraline [Zoloft] 100 mg PO BID 07/02/16 09/18/22 Cholestyramine (with Sugar) 4 gm PO BID 02/01/18 09/18/22 [Questran Packet] Alendronate Sodium 70 mg PO WEEKLY 08/04/19 09/18/22 metFORMIN HCL [Glucophage] 500 mg PO DAILY 08/04/19 09/18/22 Dapagliflozin Propanediol [Farxiga] 10 mg PO DAILY 02/16/20 09/18/22 sulfaSALAzine [Azulfidine] 500 mg PO Q6HR 02/16/20 09/18/22 Amiodarone HCl [Pacerone] 200 mg PO 09/18/22 Aspirin 81 mg PO DAILY 09/18/22 09/18/22 Furosemide [Lasix] 20 mg PO DAILY 09/18/22 09/18/22 Ketotifen 0.025% Ophth Soln 1 drop BOTH EYES BID 09/18/22 09/18/22 [Zaditor] Meclizine HCl [Antivert] 25 mg PO 09/18/22 Metoprolol Tartrate [Lopressor] 50 mg PO BID 09/18/22 09/18/22 Allergies Allergy/AdvReac Type Severity Reaction Status Date / Time amoxicillin trihydrate Allergy Unknown Rash/Hives Verified 12/01/22 10:51 [From Augmentin] naproxen Allergy Unknown Itching Verified 12/01/22 10:51 nystatin Allergy Unknown Red Verified 12/01/22 10:51 Burning Skin and Rash potassium clavulanate Allergy Unknown Rash/Hives Verified 12/01/22 10:51 [From Augmentin] latex Allergy Rash/Hives Verified 12/01/22 10:51 Review of Systems ROS Statement: Those systems with pertinent positive or pertinent negative responses have been documented in the HPI. ROS Other: All systems not noted in ROS Statement are negative. Constitutional: Denies: fever Eyes: Denies: eye pain ENT: Denies: ear pain Respiratory: Reports: as per HPI, cough, dyspnea Cardiovascular: Reports: as per HPI. Denies: chest pain Gastrointestinal: Denies: abdominal pain Musculoskeletal: Denies: back pain Skin: Denies: rash Neurological: Denies: weakness Past Medical History Past Medical History: Atrial Fibrillation, CVA/TIA, Diabetes Mellitus, Hyperlipidemia, Hypertension, Osteoarthritis (OA) Additional Past Medical History / Comment(s): VARICOSE VEINS, hx bowel obstruction and had TIA after surgery in 11/2015- some loss of memory, irregular bowel movements, blockage of left carotid artery, anemia History of Any Multi-Drug Resistant Organisms: None Reported Past Surgical History: Adenoidectomy, Appendectomy, Bowel Resection, Breast Surgery, Hernia Repair, Tonsillectomy Additional Past Surgical History / Comment(s): MARANDA BREAST Biopsy, rt lumpectomy, HEMORRHOIDECTOMY, fx LEFT ANKLE ORIF, RT THUMB TENDON, NEUROMA RT FOOT, LEFT OVARY AND TUBE removed. , LASER SURG RIGHT LEG VEINS., bowel surgery for twisted bowel 1960, bowel resection 11/2015, bleeding ulcer,Excisional of left breast, right hip replacement, Past Anesthesia/Blood Transfusion Reactions: No Reported Reaction Additional Past Anesthesia/Blood Transfusion Reaction / Comment(s): no hx of problems with prior blood transfusion Past Psychological History: Anxiety Smoking Status: Never smoker Past Alcohol Use History: None Reported Past Drug Use History: None Reported - Past Family History Father Family Medical History: Cancer Additional Family Medical History / Comment(s): KIDNEY CA Mother Family Medical History: Cancer Additional Family Medical History / Comment(s): OVARIAN CA, LEUKEMIA General Exam Limitations: no limitations General appearance: alert, in no apparent distress Head exam: Present: normocephalic Eye exam: Present: normal appearance ENT exam: Present: normal oropharynx Neck exam: Present: normal inspection Respiratory exam: Present: normal lung sounds bilaterally. Absent: respiratory distress, rales Cardiovascular Exam: Present: regular rate, normal rhythm GI/Abdominal exam: Present: soft. Absent: tenderness Extremities exam: Present: normal inspection. Absent: pedal edema, calf tenderness Neurological exam: Present: alert Psychiatric exam: Present: normal affect, normal mood Skin exam: Present: normal color Course Vital Signs 12/01/22 12/01/22 10:47 10:54 Temperature 97.8 F Pulse Rate 86 Pulse Rate [ 85 Sitting Apical] Respiratory 18 18 Rate Blood Pressure 153/84 O2 Sat by Pulse 99 Oximetry Medical Decision Making - Medical Decision Making Was pt. sent in by a medical professional or institution (, PA, WEIGHT CALLER, urgent care, hospital, or detention...) When possible be specific @ -Patient was sent from [facility]. Did you speak to anyone other than the patient for history (EMS, parent, family, police, friend...)? What history was obtained from this source @ -Family is present and helps provide history including recent surgery Did you review nursing and triage notes (agree or disagree)? Why? @ -[I reviewed and agree with nursing and triage notes] Were old charts reviewed (outside hosp., previous admission, EMS record, old EKG, old radiological studies, urgent care reports/EKG's, detention records)? Report findings @ -Chart from [facility] reviewed including lab work and CT results Differential Diagnosis (chest pain, altered mental status, abdominal pain women, abdominal pain men, vaginal bleeding, weakness, fever, dyspnea, syncope, headache, dizziness, GI bleed, back pain, seizure, CVA, palpatations, mental health, musculoskeletal)? @ -Differential Dyspnea: Coronary syndrome, arrhythmia, tamponade, asthma, COPD, pulmonary embolism, pneumonia, pneumothorax, pulmonary effusion, anaphylaxis, diabetic ketoacidosis, flailed chest, pulmonary contusion, diaphragmatic rupture, anemia, neuromuscular, this is not meant to be an all-inclusive list. EKG interpreted by me (3pts min.). @ -[As above] X-rays interpreted by me (1pt min.). @ -[None done] CT interpreted by me (1pt min.). @ -[None done] U/S interpreted by me (1pt. min.). @ -[None done] What testing was considered but not performed or refused? (CT, X-rays, U/S, labs)? Why? @ -[None] What meds were considered but not given or refused? Why? @ -[None] Did you discuss the management of the patient with other professionals (professionals i.e. , PA, WEIGHT CALLER, lab, RT, psych nurse, social services manager, torch straightener and heater, teacher, airfield engineer officer, pillowcase folder)? Give summary @ -Case was discussed with Dr. Cabrera, who will admit covering Dr. Tapia Was smoking cessation discussed for >3mins.? @ -[No] Was critical care preformed (if so, how long)? @ -33 minutes critical care time Were there social determinants of health that impacted care today? How? (Homelessness, low income, unemployed, alcoholism, drug addiction, transportation, low edu. Level, literacy, decrease access to med. care, group home, rehab)? @ -[No] Was there de-escalation of care discussed even if they declined (Discuss DNR or withdrawal of care, Hospice)? DNR status @ -[No] What co-morbidities impacted this encounter? (DM, HTN, Smoking, COPD, CAD, Cancer, CVA, ARF, Chemo, Hep., AIDS, mental health diagnosis, sleep apnea, morbid obesity)? @ -[None] Was patient admitted / discharged? Hospital course, mention meds given and route, prescriptions, significant lab abnormalities, going to OR and other pertinent info. @ -Patient will be admitted with cardiac consult. Medications ordered. Admission orders written. Patient is updated on plan. Heparin will be started. Undiagnosed new problem with uncertain prognosis? @ -[No] Drug Therapy requiring intensive monitoring for toxicity (Heparin, Nitro, Insulin, Cardizem)? @ -Patient on heparin drip Were any procedures done? @ -[No] Diagnosis/symptom? @ -nstemi, chf Acute, or Chronic, or Acute on Chronic? @ -Acute, acute Uncomplicated (without systemic symptoms) or Complicated (systemic symptoms)? @ -[default] Side effects of treatment? @ -[No] Exacerbation, Progression, or Severe Exacerbation? @ -[No] Poses a threat to life or bodily function? How? (Chest pain, [place], [place], pneumonia, PE, COPD, DKA, ARF, appy, cholecystitis, CVA, Diverticulitis, Homicidal, Suicidal, threat to staff... and all critical care pts) @ -Concern for heart attack and heart failure both poses a threat to life and cardiac function Critical Care Time Critical Care Time: Yes Total Critical Care Time: 33 Disposition Clinical Impression: Congestive heart failure, NSTEMI (non-ST elevated myocardial infarction) Disposition: ADMITTED IP TO THIS HOSP Condition: Serious Is patient prescribed a controlled substance at d/c from ED?: No Referrals: Yonathan Tapia MD [Primary Care Provider] - 1-2 days Time of Disposition: 11:48
[2022-12-01] MEDS ORDERED: HEPARIN SOD,PORK IN 0.45% NACL 25,000 UNIT in 0.45% NACL 1 250ML.BAG IV SCH (12:00)
[2022-12-01] MEDS: NITROGLYCERIN OINT 1 INCH/GM PACKET TOPICAL SCH ×2 (12:32→18:12)
[2022-12-01] MEDS: FUROSEMIDE 10 MG/ML 4 ML VIAL IV SCH ×2 (12:35→20:11)
[2022-12-01] MEDS ORDERED: ALPRAZolam 0.25 MG TAB PO PRN (13:06)
[2022-12-01] MEDS ORDERED: ALPRAZolam 0.5 MG TAB PO PRN (13:06)
[2022-12-01] MEDS ORDERED: ATORVASTATIN 80 MG TAB PO STA (13:06)
[2022-12-01] MEDS ORDERED: ASPIRIN 325 MG TAB PO STA (13:06)
[2022-12-01] MEDS: SODIUM CHLORIDE 0.9% 1,000 ML IV SCH ×2 (13:20→17:49)
--- NOTE | 2022-12-01 13:22 | P.CRDCN ---
History of Present Illness Consult date: 12/01/22 Consult reason: chest pain History of present illness: History of present illness: This is a 77-year-old female follows with a [employer] portal consultant at [facility] in [place]. She has a past medical history of coronary artery disease, diabetes mellitus type 2, paroxysmal atrial fibrillation, TIA, hypertension, hyperlipidemia, small bowel obstruction with previous 2 surgeries with bowel resection. She has history of CABG done in December 2021 three-vessel. Patient also has a history of right hip surgery done last week on Thursday and was discharged from the hospital on Thursday. Her [employer] portal consultant's is out of [facility] but follows in [place]. Patient initially presented to outside facility regarding dyspnea. Patient states that her pulse ox was found to be low but her breathing since reversed and she was placed on oxygen. At [facility], troponins were 3.4 3.6, hemoglobin 10.8, creatinine normal. EKG was sinus rhythm with no acute changes. Patient is seen today in the emergency center waiting for a bed on the cardiac stepdown unit. EKG sinus rhythm Troponin 10.1. Home cardiac medications: Eliquis 5 mg twice daily, aspirin 81 mg daily, atorvastatin 20 mg at bedtime, Farxiga 10 mg daily, Lasix 20 mg daily, Lopressor 50 mg twice daily, potassium chloride 10 mEq daily. Review Of Systems: At the time of my evaluation: Constitutional: No fever, no chills. No weakness, fatigue or lethargy. EENT: No headache. No dizziness. Lungs: + shortness of breath-improved, cough, no sputum production. No wheezing. Cardiovascular: No chest pain, no lower extremity edema. No palpitations. No paroxysmal nocturnal dyspnea. No orthopnea. No lightheadedness or dizziness. No syncopal episodes. Abdominal: No abdominal pain. No nausea, vomiting. No diarrhea. No constipation. No bloody or tarry stools. Genitourinary: No dysuria.. No urinary retention. Musculoskeletal: No myalgias. No muscle weakness, no frequent falls. No back pain. No neck pain. Integumentary: No wounds. No rash. No unusual bruising. Neurologic: No aphasia. No facial droop. No change in mentation. No head injury. No headache. Physical examination: Gen: This is a 77-year-old female. She is resting on ER stretcher and appears to be comfortable and in no acute distress. VS: reviewed HEENT: Head is atraumatic, normocephalic. Pupils equal, round. Sclerae is anicteric. NECK: Supple. No JVD. . LUNGS: Clear to auscultation. No wheezes or rhonchi. No intercostal retractions. HEART: Regular rate and rhythm. No murmur. ABDOMEN: Soft No tenderness. EXTREMITIES: No pedal edema. No calf tenderness. NEUROLOGICAL: Patient is awake, alert and oriented x3. Assessment: Non-ST elevated myocardial infarction History of coronary artery disease with previous CABG Paroxysmal atrial fibrillation TIA Hypertension Hyperlipidemia Plan: Resume patient's home cardiac medications Continue patient on heparin drip Schedule patient for cardiac catheterization today with Dr. Gates Obtain records from her [employer] portal consultant in [facility]. Obtain 2-D echocardiogram and Doppler study to assess cardiac structure and function Further recommendations to follow based upon clinical course Thank you kindly for this consultation. Nurse practitioner note has been reviewed, I agree with documented findings and plan of care. Patient was seen and examined. Past Medical History Past Medical History: Atrial Fibrillation, CVA/TIA, Diabetes Mellitus, Hyperlipidemia, Hypertension, Osteoarthritis (OA) Additional Past Medical History / Comment(s): VARICOSE VEINS, hx bowel obstruction and had TIA after surgery in 11/2015- some loss of memory, irregular bowel movements, blockage of left carotid artery, anemia History of Any Multi-Drug Resistant Organisms: None Reported Past Surgical History: Adenoidectomy, Appendectomy, Bowel Resection, Breast Surgery, Hernia Repair, Tonsillectomy Additional Past Surgical History / Comment(s): MARANDA BREAST Biopsy, rt lumpectomy, HEMORRHOIDECTOMY, fx LEFT ANKLE ORIF, RT THUMB TENDON, NEUROMA RT FOOT, LEFT OVARY AND TUBE removed. , LASER SURG RIGHT LEG VEINS., bowel surgery for twisted bowel 1960, bowel resection 11/2015, bleeding ulcer,Excisional of left breast, right hip replacement, Past Anesthesia/Blood Transfusion Reactions: No Reported Reaction Additional Past Anesthesia/Blood Transfusion Reaction / Comment(s): no hx of problems with prior blood transfusion Past Psychological History: Anxiety Smoking Status: Never smoker Past Alcohol Use History: None Reported Past Drug Use History: None Reported - Past Family History Father Family Medical History: Cancer Additional Family Medical History / Comment(s): KIDNEY CA Mother Family Medical History: Cancer Additional Family Medical History / Comment(s): OVARIAN CA, LEUKEMIA Medications and Allergies Home Medications Medication Instructions Recorded Confirmed Type Cyanocobalamin [Vitamin B-12] 1,000 mg PO W/SUPPER 09/14/14 12/01/22 History Ferrous Sulfate [Iron (65 MG 325 mg PO W/SUPPER 09/14/14 12/01/22 History Elemental)] ALPRAZolam [Xanax] 0.25 mg PO DAILY PRN 07/02/16 12/01/22 History Apixaban [Eliquis] 5 mg PO BID 07/02/16 12/01/22 History Cranberry Fruit Extract [Cranberry] 500 mg PO W/SUPPER 07/02/16 12/01/22 History Insulin Lispro [humaLOG Kwikpen] See Protocol SQ ACHS PRN 07/02/16 12/01/22 History Cholestyramine (with Sugar) 4 gm PO BID 02/01/18 12/01/22 History [Questran Packet] Alendronate Sodium 70 mg PO WE 08/04/19 12/01/22 History metFORMIN HCL [Glucophage] 500 mg PO BID 08/04/19 12/01/22 History Dapagliflozin Propanediol [Farxiga] 10 mg PO DAILY 02/16/20 12/01/22 History sulfaSALAzine [Azulfidine] 500 mg PO Q6HR 02/16/20 12/01/22 History Amiodarone HCl [Pacerone] 200 mg PO BID 09/18/22 12/01/22 History Aspirin 81 mg PO DAILY 09/18/22 12/01/22 History Furosemide [Lasix] 20 mg PO DAILY 09/18/22 12/01/22 History Ketotifen 0.025% Ophth Soln 1 drop BOTH EYES BID 09/18/22 12/01/22 History [Zaditor] Meclizine HCl [Antivert] 25 mg PO BID 09/18/22 12/01/22 History Metoprolol Tartrate [Lopressor] 50 mg PO BID 09/18/22 12/01/22 History Atorvastatin [Lipitor] 20 mg PO HS 12/01/22 12/01/22 History Ergocalciferol [Vitamin D2 (1250 1,250 mcg PO WE 12/01/22 12/01/22 History Mcg = 46015 Iu)] Potassium Chloride [Klor-Con 10 ER] 10 meq PO DAILY 12/01/22 12/01/22 History Sertraline [Zoloft] 100 mg PO DAILY 12/01/22 12/01/22 History Allergies Allergy/AdvReac Type Severity Reaction Status Date / Time amoxicillin trihydrate Allergy Unknown Rash/Hives Verified 12/01/22 12:09 [From Augmentin] naproxen Allergy Unknown Itching Verified 12/01/22 12:09 nystatin Allergy Unknown Red Verified 12/01/22 12:09 Burning Skin and Rash potassium clavulanate Allergy Unknown Rash/Hives Verified 12/01/22 12:09 [From Augmentin] latex Allergy Rash/Hives Verified 12/01/22 12:09 Physical Exam Vitals: Vital Signs Temp Pulse Pulse Resp BP Pulse Ox 12/01/22 10:54 85 18 12/01/22 10:47 97.8 F 86 18 153/84 99 Intake and Output 11/30/22 12/01/22 12/01/22 22:59 06:59 14:59 Other: Weight 62.596 kg Results Current Medications Generic Name Dose Route Start Last Admin Trade Name Freq PRN Reason Stop Dose Admin Aspirin 325 mg 12/02/22 09:00 Aspirin 325 Mg Tab PO DAILY [facility] Furosemide 40 mg 12/01/22 12:00 Furosemide 10 Mg/Ml 4 Ml Vial IV Q8H [facility] Heparin Sodium/Sodium Chloride 250 mls @ 7.512 mls/hr 12/01/22 12:00 25,000 unit/ Sodium Chloride IV .Q24H [facility] Protocol 12 UNITS/KG/HR Nitroglycerin 1 inch 12/01/22 12:00 Nitroglycerin Oint 1 Inch/Gm Packet TOPICAL Q6HR [facility] Nitroglycerin 0.4 mg 12/01/22 11:48 Nitroglycerin Sl Tabs 0.4 Mg Tab SUBLINGUAL Q5M PRN Chest Pain Intake and Output 11/30/22 12/01/22 12/01/22 22:59 06:59 14:59 Other: Weight 62.596 kg Patient Weight 12/02/22 06:59 Weight 62.596 kg
[2022-12-01] MEDS ORDERED: HEPARIN SODIUM 1,000 UN/ML (10ML VL) ONE (14:05)
[2022-12-01] MEDS ORDERED: fentaNYL (PF) 50 MCG/ML 2 ML AMP ONE (14:05)
[2022-12-01] MEDS ORDERED: LIDOCAINE 1% INJ 10MG/ML (20 ML MDV) ONE (14:05)
[2022-12-01] MEDS ORDERED: VERAPAMIL 2.5 MG/ML 2 ML AMP ONE (14:05)
[2022-12-01] MEDS ORDERED: IV FLUID CONTINUATION 1,000 ML IV ONE (14:30)
[2022-12-01] MEDS ORDERED: MELATONIN 3 MG TABLET PO PRN (15:00)
[2022-12-01] MEDS ORDERED: NALOXONE 0.4 MG/ML 1 ML VIAL IV PRN (15:00)
[2022-12-01] MEDS ORDERED: ONDANSETRON 4 MG/2 ML VIAL IVP PRN (15:00)
[2022-12-01] MEDS ORDERED: CALCIUM CARBONATE 500 MG CHEWABLE PO PRN (15:00)
[2022-12-01] MEDS ORDERED: DEXTROSE 50% SYRINGE 50 ML IVP PRN ×2 (15:01)
--- NOTE | 2022-12-01 15:02 | P.HPIM ---
History of Present Illness H&P Date: 12/01/22 Chief Complaint: Short of breath This is a pleasant 77-year-old patient who follows with Dr. Yonathan Tapia. Chronic stable medical conditions include hypertension, hyperlipidemia, diabetes, prostatitis, atrial fibrillation. Crohn's disease. Has had 12 inches of small bowel removed. Averages about 4-5 bowel movements a day. Also coronary bypass in December 2021 and . On November 26 underwent right hip replacement at [place]. Was discharged on November 28. Was told to hold off using her eliquis. Around 2:00 this morning patient woke up from sleep after she was coughing quite a bit then she started becoming short of breath. Did break out in a sweat: Clam my. And decided to go down to [facility]. No chest pain or pressure. Patient's troponin came back at 3. Transferred down here for further cardiac intervention. Currently propped up in bed. Son at the bedside. No chest pain. Review of systems: GEN.: Tired EYES: None HEENT: None NECK: None RESPIRATORY: As above CARDIOVASCULAR: None GASTROINTESTINAL: None GENITOURINARY: None MUSCULOSKELETAL: Joint pains LYMPHATICS: None HEMATOLOGICAL: None PSYCHIATRY: None NEUROLOGICAL: Currently using a walker Past medical history to include: Hypertension, hyperlipidemia, diabetes, atrial fibrillation, osteoarthritis, coronary artery disease with a bypass in December 31 and . Crohn's disease with 12 inches of small bowel removed many years ago. Social history: Patient smoked for about 15 years stopped in . Lives with 2 sons and daughter. Physical examination: VITAL SIGNS: 97.8, 80, 18, 136/82, 99% room air GENERAL: BMI 24.4, propped in bed awake not in distress. EYES: Pupils equal. Conjunctiva normal. HEENT: External appearance of nose and ears normal, oral cavity grossly normal. NECK: JVD not raised; masses not palpable. HEART: First and second heart sounds are normal; no edema. LUNGS: Respiratory rate normal; some basal crackles. ABDOMEN: Soft, nontender, liver spleen not palpable, no masses palpable. PSYCH: Alert and oriented x3; mood and affect normal. MUSCULOSKELETAL:No Clubbing/cyanosis;muscles-grossly intact. OA NEUROLOGICAL: Cranial nerves grossly intact; no facial asymmetry, power and sensation grossly intact. LYMPHATICS: No lymph nodes palpable in the axilla and neck INVESTIGATIONS, reviewed in the clinical context: Troponin I 10.1 From [facility]: Sodium 131 potassium 4 BUN 18 creatinine 0.700.7 hemoglobin 10.8 platelets 22 lactic acid 1.8 Chest CTA: Negative for pulmonary embolism. Possible CHF. EKG tracing personally reviewed by me-normal sinus rhythm. ST/T-wave changes. Assessment and plan: -Acute non-Q-wave DE. In a patient with a coronary bypass in December 2021 Patient symptoms started about 2 AM today. Initial troponin 3 repeat troponin 10. Nonspecific EKG changes. Patient will need cardiac catheterization. Cardiology consulted. IV heparin and aspirin. Lopressor -CAD with coronary bypass December 2021 [facility] [place] [place] -Diabetes mellitus type 2 on oral hypoglycemic Glucophage-hold. farxiga. Accu-Cheks and sliding scale insulin -Paroxysmal atrial fibrillation currently in sinus rhythm. Amiodarone. Eliquis. Lopressor -Chronic Crohn's disease. Has had 12 inches of small bowel removed many years ago. Baseline 4-5 bowel movements a day. Sulfasalazine. Cholestyramine. -Essential hypertension Lopressor -Hyperlipidemia Lipitor -Depression, anxiety Zoloft Care was discussed with patient and son at the bedside. Questions answered. Patient going for cardiac catheterization today. Past Medical History Past Medical History: Atrial Fibrillation, CVA/TIA, Diabetes Mellitus, Hyperlipidemia, Hypertension, Osteoarthritis (OA) Additional Past Medical History / Comment(s): VARICOSE VEINS, hx bowel obstruction and had TIA after surgery in 11/2015- some loss of memory, irregular bowel movements, blockage of left carotid artery, anemia History of Any Multi-Drug Resistant Organisms: None Reported Past Surgical History: Adenoidectomy, Appendectomy, Bowel Resection, Breast Surgery, Hernia Repair, Tonsillectomy Additional Past Surgical History / Comment(s): MARANDA BREAST Biopsy, rt lumpectomy, HEMORRHOIDECTOMY, fx LEFT ANKLE ORIF, RT THUMB TENDON, NEUROMA RT FOOT, LEFT OVARY AND TUBE removed. , LASER SURG RIGHT LEG VEINS., bowel surgery for twisted bowel 1960, bowel resection 11/2015, bleeding ulcer,Excisional of left breast, right hip replacement, Past Anesthesia/Blood Transfusion Reactions: No Reported Reaction Additional Past Anesthesia/Blood Transfusion Reaction / Comment(s): no hx of problems with prior blood transfusion Past Psychological History: Anxiety Smoking Status: Never smoker Past Alcohol Use History: None Reported Past Drug Use History: None Reported - Past Family History Father Family Medical History: Cancer Additional Family Medical History / Comment(s): KIDNEY CA Mother Family Medical History: Cancer Additional Family Medical History / Comment(s): OVARIAN CA, LEUKEMIA Medications and Allergies Home Medications Medication Instructions Recorded Confirmed Type Cyanocobalamin [Vitamin B-12] 1,000 mg PO W/SUPPER 09/14/14 12/01/22 History Ferrous Sulfate [Iron (65 MG 325 mg PO W/SUPPER 09/14/14 12/01/22 History Elemental)] ALPRAZolam [Xanax] 0.25 mg PO DAILY PRN 07/02/16 12/01/22 History Apixaban [Eliquis] 5 mg PO BID 07/02/16 12/01/22 History Cranberry Fruit Extract [Cranberry] 500 mg PO W/SUPPER 07/02/16 12/01/22 History Insulin Lispro [humaLOG Kwikpen] See Protocol SQ ACHS PRN 07/02/16 12/01/22 History Cholestyramine (with Sugar) 4 gm PO BID 02/01/18 12/01/22 History [Questran Packet] Alendronate Sodium 70 mg PO WE 08/04/19 12/01/22 History metFORMIN HCL [Glucophage] 500 mg PO BID 08/04/19 12/01/22 History Dapagliflozin Propanediol [Farxiga] 10 mg PO DAILY 02/16/20 12/01/22 History sulfaSALAzine [Azulfidine] 500 mg PO Q6HR 02/16/20 12/01/22 History Amiodarone HCl [Pacerone] 200 mg PO BID 09/18/22 12/01/22 History Aspirin 81 mg PO DAILY 09/18/22 12/01/22 History Furosemide [Lasix] 20 mg PO DAILY 09/18/22 12/01/22 History Ketotifen 0.025% Ophth Soln 1 drop BOTH EYES BID 09/18/22 12/01/22 History [Zaditor] Meclizine HCl [Antivert] 25 mg PO BID 09/18/22 12/01/22 History Metoprolol Tartrate [Lopressor] 50 mg PO BID 09/18/22 12/01/22 History Atorvastatin [Lipitor] 20 mg PO HS 12/01/22 12/01/22 History Ergocalciferol [Vitamin D2 (1250 1,250 mcg PO WE 12/01/22 12/01/22 History Mcg = 21014 Iu)] Potassium Chloride [Klor-Con 10 ER] 10 meq PO DAILY 12/01/22 12/01/22 History Sertraline [Zoloft] 100 mg PO DAILY 12/01/22 12/01/22 History Allergies Allergy/AdvReac Type Severity Reaction Status Date / Time amoxicillin trihydrate Allergy Unknown Rash/Hives Verified 12/01/22 12:09 [From Augmentin] naproxen Allergy Unknown Itching Verified 12/01/22 12:09 nystatin Allergy Unknown Red Verified 12/01/22 12:09 Burning Skin and Rash potassium clavulanate Allergy Unknown Rash/Hives Verified 12/01/22 12:09 [From Augmentin] latex Allergy Rash/Hives Verified 12/01/22 12:09 Physical Exam Vitals: Vital Signs Temp Pulse Pulse Resp BP Pulse Ox 12/01/22 12:30 80 18 136/82 99 12/01/22 10:54 85 18 12/01/22 10:47 97.8 F 86 18 153/84 99 Intake and Output 11/30/22 12/01/22 12/01/22 22:59 06:59 14:59 Other: Weight 62.596 kg Results Labs: Abnormal Lab Results - Last 24 Hours (Table) 12/01/22 Range/Units 12:16 Troponin I 10.100 H* (0.000-0.034) ng/mL
[2022-12-01] MEDS ORDERED: MIDAZOLAM 2 MG/2 ML VIAL IVP ONE (15:24)
[2022-12-01] MEDS ORDERED: fentaNYL (PF) 50 MCG/ML 2 ML AMP IVP ONE (15:24)
[2022-12-01] MEDS ORDERED: LIDOCAINE 1% INJ 10MG/ML (5 ML VIAL-PF) SQ ONE (15:30)
[2022-12-01] MEDS ORDERED: VERAPAMIL SYRINGE (5 MG/10 ML) INTRAARTER ONE (15:32)
[2022-12-01] MEDS: HEPARIN SODIUM 1,000 UN/ML (10ML VL) IV ONE ×3 (15:40→16:47)
[2022-12-01] MEDS ORDERED: IOPAMIDOL-370 100ML BTL INJ ONE ×2 (15:52→16:50)
[2022-12-01] MEDS ORDERED: CLOPIDOGREL 75 MG TAB ONE (16:49)
[2022-12-01] MEDS ORDERED: CLOPIDOGREL 75 MG TAB PO ONE (16:50)
[2022-12-01] MEDS ORDERED: INSULIN ASPART (NovoLOG) 100 UNIT/ML VIAL SQ SCH (17:30)
[2022-12-01] MEDS: sulfaSALAzine 500 MG TAB PO SCH ×2 (17:41→22:03)
[2022-12-01] MEDS ORDERED: RX INFO: IV CONTRAST WAS GIVEN 1 EACH MISC MISCELLANE PRN (17:44)
[2022-12-01] MEDS: CYANOCOBALAMIN 500 MCG TAB PO SCH (17:54)
--- NOTE | 2022-12-01 18:55 | XR ---
EXAMINATION TYPE: XR chest 1V portable DATE OF EXAM: 12/01/2022 COMPARISON: 09/15/2016 INDICATION: Short of breath TECHNIQUE: Single frontal view of the chest is obtained. FINDINGS: The heart size is normal. The pulmonary vasculature is very prominent. Diffuse increased lung markings are present. Correlate for pulmonary edema. IMPRESSION: 1. Prominent pulmonary vascular markings with diffuse increased lung markings. Correlate for pulmonar y edema and volume overload. Follow-up can be performed
[2022-12-01] MEDS: AMIODARONE 200 MG TAB PO SCH (20:11)
[2022-12-01] MEDS: METOPROLOL TARTRATE 50 MG TAB PO SCH (20:11)
[2022-12-01] MEDS: ATORVASTATIN 20 MG TAB PO SCH (20:11)
[2022-12-01 20:12] LABS: Glucose,Whole Blood 260 mg/dL (70-110)
[2022-12-01] MEDS ORDERED: APIXABAN 5 MG TAB PO SCH (21:00)
[2022-12-01] MEDS: INSULIN ASPART (NovoLOG) 100 UNIT/ML VIAL SQ SCH (22:04)
[2022-12-01] MEDS: KETOTIFEN 0.025% OPHTH DROPS 5 ML BTL BOTH EYES SCH (22:04)
--- NOTE | 2022-12-01 23:08 | P.CARDCATH ---
Description of Procedure: PROCEDURES PERFORMED: Left heart catheterization, bilateral coronary angiography, ultrasound guided arterial access, WIL to diagonal, BARROW to LAD, SVG to PDA angiography, aortogram INDICATION: NSTEMI CONSENT:I have discussed the risks, benefits and alternative therapies for the above-mentioned procedure and for both sedation/analgesia as well as necessary blood product administration, if indicated, as they pertain to this patient. The patient has indicated understanding and acceptance of the risks and procedures discussed. PROCEDURE: After the risks, benefits and alternatives of the above mentioned procedure explained in detail with the patient, informed consent was obtained. Patient was taken to the catheterization lab and prepped and draped in usual fashion. Ultrasound guidance was used to assess for arterial access. 1% lidocaine was used to anesthetize the left ulnar artery given the radial artery appeared smaller on ultrasound. A 6-Gibraltarian sheath was placed in the left ulnar artery using modified Seldinger technique and ultrasound guidance. Left coronary angiography was performed with a 5-Gibraltarian JL 4 catheter and right coronary angiography was performed with a 5-Gibraltarian JR4 catheter in various views. A 5-Gibraltarian FR5 catheter was inserted into the left ventricle and pressure measurements were obtained. BARROW to LAD angiography was performed which showed artery patent however somewhat atretic and not opacifying the full LAD. Aortogram was performed in both the RODRIGEZ and ZUNILDA projection which did not show any patent grafts. SVG to PDA angiography was performed with a multipurpose catheter. Results of the CABG were requested however patient with increasing troponins and therefore patient was taken for C prior to knowing full anatomy. Therefore some attempts were made at another SVG graft however appeared to have gill from the right chest wall. Unable to canulate or advance a catheter into the innominate from the left ulnar sheath and therefore an additional right radial sheath was placed with ultrasound guidance. WIL to diagonal angiography was performed with a 6Fr IM catheter. Given contrast threshold, patient not having any active chest pain and complex anatomy, decision was made to stage any attempt at intervention. The right radial sheath and left ulnar sheath were removed and a TR band was placed with hemostasis achieved. The patient tolerated the procedure well. Patient was transported back to the post catheterization holding area in stable condition. Conscious Sedation: Patient was monitored under the direct supervision of myself for conscious sedation using Versed and fentanyl for a total duration of 77 minutes HEMODYNAMICS: Aorta: 111/71 LV: 114/8, LVEDP 20 SELECTIVE CORONARY ARTERIOGRAPHY: LEFT MAIN: The left main is a large caliber vessel which trifurcates into the LAD, ramus and circumflex. There is a hazy distal left main 80% stenosis LEFT ANTERIOR DESCENDING CORONARY ARTERY: LAD is a large caliber vessel which reaches the apex. There is a proximal LAD 80% stenosis and otherwise mild luminal irregularities. There is competitive flow with the mid LAD and WIL to diagonal backfilling however immediately after the diagonal, the LAD appears to have a 100% distal LAD stenosis. There are left to right collaterals. RAMUS INTERMEDIUS: The ramus is a small caliber vessel with a superior and inferior branch with mild 30% proximal stenosis. LEFT CIRCUMFLEX CORONARY ARTERY: Left circumflex is a moderate caliber vessel with ostial 90% stenosis, followed by a proximal circumflex 99% subtotally occluded circumflex. There are left to left collaterals to the circumflex. RIGHT CORONARY ARTERY: The right coronary artery is a moderate caliber vessel which gives off a PDA and PLV branch and is the dominant vessel. There is 100% mid RCA stenosis at the level of the acute marginal branch BARROW to LAD: patent however atretic with poor antegrade flow down to the distal LAD RIIMA to diagonal: widely patent however no antegrade flow down the LAD with LAD occlusion occurring just distal to the diagonal branch. SVG to PDA: occluded FINAL IMPRESSION: 1. Diffuse [place] CAD as described above including distal left main 80% stenosis, proximal LAD 80% stenosis, mid to distal LAD 100% stenosis, circumflex 99% stenosis, RCA 100% stenosis 2. Occluded SVG to PDA, patent WIL to diagonal, patent BARROW to LAD however atretic and no fully opacifying the distal LAD. 3. High normal left sided filling pressures PLAN: 1. Aggressive risk factor modification per most recent ACC/AHA guidelines. 2. Multiple possible interventional targets with patient only recently undergoing CABG 1 yr ago however only BARROW and WIL patent and BARROW appears atretic. Patient may need left main stenting into the circumflex/LAD. Obtain prior records from CABG as well as cath reports to see where progression has occurred.
[2022-12-01] MEDS ORDERED: HEPARIN SODIUM 1,000 UN/ML (10ML VL) IV PRN (23:14)
[2022-12-01] MEDS ORDERED: HEPARIN SODIUM 1,000 UN/ML (10ML VL) IV ONE (23:14)
[2022-12-01] MEDS: HEPARIN SOD,PORK IN 0.45% NACL 25,000 UNIT in 0.45% NACL 1 250ML.BAG IV SCH (23:56)
[2022-12-02] MEDS: sulfaSALAzine 500 MG TAB PO SCH ×5 (00:09→23:03)
[2022-12-02] MEDS: NITROGLYCERIN OINT 1 INCH/GM PACKET TOPICAL SCH ×5 (00:09→23:03)
[2022-12-02 00:10] LABS: Basophils % (A) 0 %; Eosinophils # (A) 0.5 k/uL (0-0.7); Eosinophils % (A) 7 %; HCT 30.3 % (34.0-46.0); HGB 10.1 gm/dL (11.4-16.0); Lymphocytes # (A) 1.4 k/uL (1.0-4.8); Lymphocytes % (A) 19 %; MCH 31.7 pg (25.0-35.0); MCHC 33.5 g/dL (31.0-37.0); MCV 94.6 fL (80.0-100.0); Mean Platelet Volume 8.5; Monocytes # (A) 0.8 k/uL (0-1.0); Monocytes % (A) 10 %; Neutrophils # (A) 4.7 k/uL (1.3-7.7); Neutrophils % (A) 62 %; Platelet Count 354 k/uL (150-450); WBC 7.5 k/uL (3.8-10.6)
[2022-12-02 00:14] LABS: Partial Thromboplastin Time 29.3 sec (22.0-30.0); Prothrombin Time 10.6 sec (10.0-12.5)
[2022-12-02] MEDS: FUROSEMIDE 10 MG/ML 4 ML VIAL IV SCH ×3 (03:40→20:22)
[2022-12-02 06:12] LABS: Glucose,Whole Blood 198 mg/dL (70-110)
[2022-12-02] MEDS: INSULIN ASPART (NovoLOG) 100 UNIT/ML VIAL SQ SCH ×4 (06:24→20:22)
[2022-12-02] MEDS: SODIUM CHLORIDE 0.9% 1,000 ML IV SCH ×3 (06:25→20:22)
[2022-12-02] MEDS ORDERED: INSULIN ASPART (NovoLOG) 100 UNIT/ML VIAL SQ SCH (07:30)
[2022-12-02 08:59] LABS: Basophils % (A) 0 %; Eosinophils # (A) 0.6 k/uL (0-0.7); Eosinophils % (A) 8 %; HCT 31.4 % (34.0-46.0); HGB 10.4 gm/dL (11.4-16.0); Lymphocytes # (A) 1.4 k/uL (1.0-4.8); Lymphocytes % (A) 19 %; MCH 31.3 pg (25.0-35.0); MCHC 32.9 g/dL (31.0-37.0); MCV 95.1 fL (80.0-100.0); Mean Platelet Volume 8.4; Monocytes # (A) 0.8 k/uL (0-1.0); Monocytes % (A) 11 %; Neutrophils # (A) 4.4 k/uL (1.3-7.7); Neutrophils % (A) 60 %; Platelet Count 406 k/uL (150-450); RBC 3.31 m/uL (3.80-5.40); RDW 13.1 % (11.5-15.5); WBC 7.4 k/uL (3.8-10.6)
[2022-12-02 09:00] LABS: Chol/HDL Ratio 3.58 Ratio; LDL Cholesterol,Calculated 38.8 mg/dL (0.0-131.0)
[2022-12-02] MEDS ORDERED: ASPIRIN 325 MG TAB PO SCH (09:00)
[2022-12-02 09:01] LABS: Partial Thromboplastin Time 28.6 sec (22.0-30.0); Prothrombin Time 10.6 sec (10.0-12.5)
[2022-12-02] MEDS: ASPIRIN 81 MG PO SCH (09:53)
[2022-12-02] MEDS: DAPAGLIFLOZIN PROPANEDIOL 10 MG TABLET PO SCH (09:53)
[2022-12-02] MEDS: METOPROLOL TARTRATE 50 MG TAB PO SCH ×2 (09:53→20:22)
[2022-12-02] MEDS: AMIODARONE 200 MG TAB PO SCH ×2 (09:53→20:22)
[2022-12-02] MEDS: SERTRALINE 100 MG TAB PO SCH (09:53)
[2022-12-02] MEDS: KETOTIFEN 0.025% OPHTH DROPS 5 ML BTL BOTH EYES SCH ×2 (09:54→20:22)
[2022-12-02] MEDS ORDERED: ASPIRIN 325 MG TAB PO STA (11:29)
[2022-12-02] MEDS ORDERED: ATORVASTATIN 80 MG TAB PO STA (11:29)
[2022-12-02] MEDS ORDERED: NITROGLYCERIN SL TABS 0.4 MG TAB SUBLINGUAL PRN (11:29)
[2022-12-02 11:34] LABS: Glucose,Whole Blood 249 mg/dL (70-110)
--- NOTE | 2022-12-02 13:30 | P.PN ---
Progress Note - Text Progress Note Date: 12/02/22 Chief Complaint: Short of breath This is a pleasant 77-year-old patient who follows with Dr. Yonathan Tapia. Chronic stable medical conditions include hypertension, hyperlipidemia, diabetes, prostatitis, atrial fibrillation. Crohn's disease. Has had 12 inches of small bowel removed. Averages about 4-5 bowel movements a day. Also coronary bypass in December 2021 and [place]. On November 26 underwent right hip replacement at [place]. Was discharged on November 28. Was told to hold off using her eliquis. Around 2:00 this morning patient woke up from sleep after she was coughing quite a bit then she started becoming short of breath. Did break out in a sweat: Clammy. And decided to go down to [facility]. No chest pain or pressure. Patient's troponin came back at 3. Transferred down here for further cardiac intervention. Currently propped up in bed. Son at the bedside. No chest pain. December 02: Patient underwent cardiac catheterization by Dr. Gates. No intervention was carried out. Complicated anatomy and findings. Discussed with him. He'll review patient's coronary bypass films, awaiting 2-D echo. Then make a decision about further intervention likely tomorrow. Laying in bed. No chest pain or shortness of breath. On IV heparin. On IV Lasix for CHF. Active Medications Acetaminophen (Acetaminophen Tab 325 Mg Tab) 650 mg PO Q6HR PRN PRN Reason: Mild Pain or Fever > 100.5 Alprazolam (Alprazolam 0.25 Mg Tab) 0.25 mg PO Q6HR PRN PRN Reason: Mild Anxiety Alprazolam (Alprazolam 0.5 Mg Tab) 0.5 mg PO Q6HR PRN PRN Reason: Moderate Anxiety Amiodarone HCl (Amiodarone 200 Mg Tab) 200 mg PO BID [facility] Last Admin: 12/02/22 09:53 Dose: 200 mg Aspirin (Aspirin 81 Mg) 81 mg PO DAILY [facility] Last Admin: 12/02/22 09:53 Dose: 81 mg Aspirin (Aspirin 325 Mg Tab) 325 mg PO ONCE ONE Stop: 12/03/22 09:01 Atorvastatin Calcium (Atorvastatin 20 Mg Tab) 20 mg PO HS [facility] Last Admin: 12/01/22 20:11 Dose: 20 mg Atorvastatin Calcium (Atorvastatin 80 Mg Tab) 80 mg PO ONCE ONE Stop: 12/03/22 09:01 Calcium Carbonate/Glycine (Calcium Carbonate 500 Mg Chewable) 1,000 mg PO Q4HR PRN PRN Reason: Dyspepsia Cyanocobalamin (Cyanocobalamin 500 Mcg Tab) 1,000 mcg PO W/SUPPER [facility] Last Admin: 12/01/22 17:54 Dose: 1,000 mcg Dapagliflozin (Dapagliflozin Propanediol 10 Mg Tablet) 10 mg PO DAILY [facility] Last Admin: 12/02/22 09:53 Dose: 10 mg Dextrose/Water (Dextrose 50% Syringe 50 Ml) 25 ml IVP PER PROTOCOL PRN; Protocol PRN Reason: Hypoglycemia Dextrose/Water (Dextrose 50% Syringe 50 Ml) 50 ml IVP PER PROTOCOL PRN; Protocol PRN Reason: Hypoglycemia Furosemide (Furosemide 10 Mg/Ml 4 Ml Vial) 40 mg IV Q8H [facility] Last Admin: 12/02/22 12:43 Dose: 40 mg Heparin Sodium (Porcine) (Heparin Sodium 1,000 Un/Ml (10ml Vl)) 0 unit IV PER PROTOCOL PRN; Protocol PRN Reason: Low PTT Sodium Chloride (Saline 0.9%) 1,000 mls @ 50 mls/hr IV .Q20H [facility] Last Admin: 12/02/22 12:43 Dose: 50 mls/hr Sodium Chloride (Saline 0.9%) 1,000 mls @ 75 mls/hr IV .[id number] [facility] Last Admin: 12/02/22 06:25 Dose: 75 mls/hr Heparin Sodium/Sodium Chloride (25,000 unit/ Sodium Chloride) 250 mls @ 7.512 mls/hr IV .Q24H [facility]; Protocol Last Titration: 12/02/22 11:40 Dose: 15 units/kg/hr, 9.389 mls/hr Heparin Sodium (Porcine) 10, (000 unit/ Sodium Chloride) 1,001 mls @ 999 mls/hr IRRIGATION ONCE PRN PRN Reason: INTRA-OP Stop: 12/03/22 23:00 Heparin Sodium (Porcine) 2,500 (unit/ Sodium Chloride) 250.5 mls @ 250 mls/hr IRRIGATION ONCE PRN PRN Reason: INTRA-OP Stop: 12/03/22 23:00 Insulin Aspart (Insulin Aspart (Novolog) 100 Unit/Ml Vial) 0 unit SQ ACHS [facility]; Protocol Last Admin: 12/02/22 12:44 Dose: 2 unit Ketotifen Fumarate (Ketotifen 0.025% Ophth Drops 5 Ml Btl) 1 drops BOTH EYES BID [facility] Last Admin: 12/02/22 09:54 Dose: Not Given Melatonin (Melatonin 3 Mg Tablet) 3 mg PO HS PRN PRN Reason: Insomnia Metoprolol Tartrate (Metoprolol Tartrate 50 Mg Tab) 50 mg PO BID [facility] Last Admin: 12/02/22 09:53 Dose: 50 mg Miscellaneous Information (Rx Info: Iv Contrast Was Given 1 Each Misc) 1 each MISCELLANE DAILY PRN PRN Reason: Per Protocol Stop: 12/03/22 17:45 Naloxone HCl (Naloxone 0.4 Mg/Ml 1 Ml Vial) 0.2 mg IV Q2M PRN PRN Reason: Opioid Reversal Nitroglycerin (Nitroglycerin Oint 1 Inch/Gm Packet) 1 inch TOPICAL Q6HR [facility] Last Admin: 12/02/22 12:44 Dose: 1 inch Nitroglycerin (Nitroglycerin Sl Tabs 0.4 Mg Tab) 0.4 mg SUBLINGUAL Q5M PRN PRN Reason: Chest Pain Nitroglycerin (Nitroglycerin Sl Tabs 0.4 Mg Tab) 0.4 mg SUBLINGUAL Q5M PRN PRN Reason: Chest Pain Ondansetron HCl (Ondansetron 4 Mg/2 Ml Vial) 4 mg IVP Q8HR PRN PRN Reason: Nausea And Vomiting Sertraline HCl (Sertraline 100 Mg Tab) 100 mg PO DAILY [facility] Last Admin: 12/02/22 09:53 Dose: 100 mg Sulfasalazine (Sulfasalazine 500 Mg Tab) 500 mg PO Q6HR [facility]; Protocol Stop: 03/10/23 13:31 Last Admin: 12/02/22 12:44 Dose: 500 mg Past medical history to include: Hypertension, hyperlipidemia, diabetes, atrial fibrillation, osteoarthritis, coronary artery disease with a bypass in December 31 and . Crohn's disease with 12 inches of small bowel removed many years ago. Social history: Patient smoked for about 15 years stopped in . Lives with 2 sons and daughter. Physical examination: VITAL SIGNS: 98, 72, 18, 112/69, 96% room air GENERAL: Laying in bed, not in distress EYES: Pupils equal. Conjunctiva normal. HEENT: External appearance of nose and ears normal, oral cavity grossly normal. NECK: JVD not raised; masses not palpable. HEART: First and second heart sounds are normal; no edema. LUNGS: Respiratory rate normal; some basal crackles. ABDOMEN: Soft, nontender, liver spleen not palpable, no masses palpable. PSYCH: Alert and oriented x3; mood and affect normal. MUSCULOSKELETAL:No Clubbing/cyanosis;muscles-grossly intact. OA INVESTIGATIONS, reviewed in the clinical context: December 02: White count 7.4 hemoglobin 10.4 platelets 406 Troponin I 10.1 From [facility]: Sodium 131 potassium 4 BUN 18 creatinine 0.700.7 hemoglobin 10.8 platelets 22 lactic acid 1.8 Chest CTA: Negative for pulmonary embolism. Possible CHF. EKG tracing personally reviewed by me-normal sinus rhythm. ST/T-wave changes. Assessment and plan: -Acute non-Q-wave [place]. In a patient with a coronary bypass in December 2021 Patient symptoms started about 2 AM today. Initial troponin 3 repeat troponin 10. Nonspecific EKG changes. December 01: Patient underwent cardiac catheterization by Dr. Gates. No intervention. He'll further review old films and then decide. IV heparin and aspirin. Lopressor -CAD with coronary bypass December 2021 [facility] -IV heparin monitoring Follow PTT -Acute congestive heart exacerbation. EF not known. IV Lasix -Diabetes mellitus type 2 on oral hypoglycemic Glucophage-hold. farxiga. Accu-Cheks and sliding scale insulin -Paroxysmal atrial fibrillation currently in sinus rhythm. Amiodarone. Eliquis. Lopressor -Chronic Crohn's disease. Has had 12 inches of small bowel removed many years ago. Baseline 4-5 bowel movements a day. Sulfasalazine. Cholestyramine. -Essential hypertension Lopressor -Hyperlipidemia Lipitor -Depression, anxiety Zoloft IV Lasix. IV heparin. Patient to return to Plan for further intervention tomorrow. Discussed with patient.
--- NOTE | 2022-12-02 13:43 | P.PN ---
Subjective Progress Note Date: 12/02/22 History of present illness: This is a 77-year-old female follows with a marble chip terrazzo worker at [facility] in [place]. She has a past medical history of coronary artery disease, diabetes mellitus type 2, paroxysmal atrial fibrillation, TIA, hypertension, hyperlipidemia, small bowel obstruction with previous 2 surgeries with bowel resection. She has history of CABG done in December 2021 three-vessel. Patient also has a history of right hip surgery done last week on Thursday and was discharged from the hospital on Thursday. Her marble chip terrazzo worker's is out of [facility] but follows in [place]. Patient initially presented to outside facility regarding dyspnea. Patient states that her pulse ox was found to be low but her breathing since reversed and she was placed on oxygen. At [facility], troponins were 3.4 3.6, hemoglobin 10.8, creatinine normal. EKG was sinus rhythm with no acute changes. Patient is seen today in the emergency center waiting for a bed on the cardiac stepdown unit. EKG sinus rhythm Troponin 10.1. Home cardiac medications: Eliquis 5 mg twice daily, aspirin 81 mg daily, atorvastatin 20 mg at bedtime, Farxiga 10 mg daily, Lasix 20 mg daily, Lopressor 50 mg twice daily, potassium chloride 10 mEq daily. 12/02 Yesterday, patient underwent LHC with Dr. Gates that revealed diffuse chemehuevi CAD including distal left main 80% stenosis, proximal LAD 80% stenosis, mid to distal LAD 100% stenosis, circumflex 99% stenosis, RCA 100% stenosis. Occluded SVG to PDA, patent WIL to diagonal, patent BARROW to LAD however atretic and no fully opacifying the distal LAD. High normal left sided filling pressures. Plan is for aggressive risk factor modification. Dr. Gates has reviewed CABG report which has been obtained from [facility] and discussed in detail the need to pursue stenting of the left main stenting into the circumflex/LAD. Patient is agreeable and will be scheduled tomorrow afternoon. Patient denies having any chest pain, no shortness of breath, no fever or chills. She does have some left wrist discomfort. Good pulses bilaterally. Echocardiogram has been completed and report is pending. Physical examination: Gen: This is a 77-year-old female. She is resting in bed and appears to be comfortable and in no acute distress. VS: reviewed HEENT: Head is atraumatic, normocephalic. Pupils equal, round. Sclerae is anicteric. NECK: Supple. No JVD. . LUNGS: Clear to auscultation. No wheezes or rhonchi. No intercostal re tractions. HEART: Regular rate and rhythm. No murmur. ABDOMEN: Soft No tenderness. EXTREMITIES: No pedal edema. No calf tenderness. NEUROLOGICAL: Patient is awake, alert and oriented x3. Assessment: Non-ST elevated myocardial infarction History of coronary artery disease with previous CABG Paroxysmal atrial fibrillation TIA Hypertension Hyperlipidemia Plan: Continue patient's home cardiac medications Schedule patient for PCI tomorrow afternoon with Dr. Gates Obtain 2-D echocardiogram and Doppler study report Further recommendations to follow based upon clinical course Nurse practitioner note has been reviewed, I agree with documented findings and plan of care. Patient was seen and examined. Objective - Vital Signs Vital signs: Vital Signs Temp 97.8 F 12/02/22 09:26 Pulse 75 12/02/22 10:53 Resp 20 12/02/22 10:53 BP 117/74 12/02/22 09:26 Pulse Ox 94 L 12/02/22 09:26 FiO2 Intake & Output 12/01/22 12/02/22 12/02/22 18:59 06:59 18:59 Intake Total 350 354 Output Total 1200 2075 Balance -850 -207 354 Weight 62.596 kg 56 kg Intake: IV 350 Oral 354 Output: Urine 1200 2075 Other: Voiding Method Indwelling Catheter Indwelling Catheter - Labs CBC & Chem 7: 12/02/22 08:14 Labs: Abnormal Lab Results - Last 24 Hours (Table) 12/01/22 12/01/22 12/01/22 Range/Units 12:16 18:29 18:29 RBC (3.80-5.40) m/uL Hgb (11.4-16.0) gm/dL Hct (34.0-46.0) % APTT 53.2 H (22.0-30.0) sec POC Glucose (mg/dL) (70-110) mg/dL Troponin I 10.100 H* 9.090 H* (0.000-0.034) ng/mL Triglycerides (0.00-149.00) mg/dL HDL Cholesterol (40.00-60.00) mg/dL 12/01/22 12/01/22 12/01/22 Range/Units 18:29 20:10 23:35 RBC 3.20 L (3.80-5.40) m/uL Hgb 10.1 L (11.4-16.0) gm/dL Hct 30.3 L (34.0-46.0) % APTT (22.0-30.0) sec POC Glucose (mg/dL) 260 H (70-110) mg/dL Troponin I (0.000-0.034) ng/mL Triglycerides 177.00 H (0.00-149.00) mg/dL HDL Cholesterol 28.80 L (40.00-60.00) mg/dL 12/02/22 12/02/22 Range/Units 06:08 08:14 RBC 3.31 L (3.80-5.40) m/uL Hgb 10.4 L (11.4-16.0) gm/dL Hct 31.4 L (34.0-46.0) % APTT (22.0-30.0) sec POC Glucose (mg/dL) 198 H (70-110) mg/dL Troponin I (0.000-0.034) ng/mL Triglycerides (0.00-149.00) mg/dL HDL Cholesterol (40.00-60.00) mg/dL
[2022-12-02 17:11] LABS: Glucose,Whole Blood 159 mg/dL (70-110)
[2022-12-02] MEDS: CYANOCOBALAMIN 500 MCG TAB PO SCH (17:20)
[2022-12-02 20:16] LABS: Glucose,Whole Blood 177 mg/dL (70-110)
[2022-12-02] MEDS: ATORVASTATIN 20 MG TAB PO SCH (20:22)
--- NOTE | 2022-12-02 21:49 | CA ---
Transthoracic Echo Report Name: Gnia Rouse Age: 77 Gender: F : 1945 Exam Date: 12/02/2022 09:18 Exam Location: [place] Echo Ht (in): 63 Wt (lb): 138 Ordering Physician: David Philippe DO Attending/Referring Phys: Biomedical Engineering Director Mikel Mathias Procedure CPT: Indications: chf Cardiac Hx: Technical Quality: Fair Contrast 1: Total Dose (mL): Contrast 2: Total Dose (mL): MEASUREMENTS (Male / Female) Normal Values 2D ECHO LV Diastolic Diameter PLAX 4.5 cm 4.2 - 5.9 / 3.9 - 5.3 cm LV Systolic Diameter PLAX 3.5 cm IVS Diastolic Thickness 1.5 cm 0.6 - 1.0 / 0.6 - 0.9 cm LVPW Diastolic Thickness 1.1 cm 0.6 - 1.0 / 0.6 - 0.9 cm LV Relative Wall Thickness 0.6 RV Internal Dim ED PLAX 2.1 cm LVOT Diameter 1.7 cm Aortic Root Diameter 2.6 cm LA Systolic Diameter LX 3.4 cm 3.0 - 4.0 / 2.7 - 3.8 cm LV Diastolic Volume MOD BP 87.6 cm??? 67 - 155 / 56 - 104 cm??? LV Systolic Volume MOD BP 42.8 cm??? - 58 / 19 - 49 cm??? LV Ejection Fraction MOD BP 51.1 % >= 55 % LV Cardiac Index MOD BP 2080.6 cm???/min???m??? LV Diastolic Volume MOD 4C 83.1 cm??? LV Systolic Volume MOD 4C 41.1 cm??? LV Ejection Fraction MOD 4C 50.6 % LV Cardiac Index MOD 4C 1953.1 cm???/min???m??? LV Diastolic Length 4C 7.3 cm LV Systolic Length 4C 6.9 cm LV Diastolic Volume MOD 2C 90.2 cm??? LV Systolic Volume MOD 2C 45.2 cm??? LV Ejection Fraction MOD 2C 49.9 % LV Cardiac Index MOD 2C 2089.5 cm???/min???m??? LV Diastolic Length 2C 7.5 cm LV Systolic Length 2C 6.8 cm LA Volume 58.2 cm??? 18 - 58 / 22 - 52 cm??? LA Volume Index 34.7 cm???/m??? 16 - 28 cm???/m??? DOPPLER AV Peak Velocity 150.7 cm/s AV Peak Gradient 9.1 mmHg AI Peak Velocity 318.9 cm/s AI Peak Gradient 40.7 mmHg AI Pressure Half Time 744.7 ms LVOT Peak Velocity 94.2 cm/s LVOT Peak Gradient 3.5 mmHg LVOT Velocity Time Integral 20.3 cm LVOT Stroke Volume 45.4 cm??? LVOT Stroke Volume Index 27.5 ml/m??? LVOT Cardiac Index 2110.3 cm???/min???m??? AV Area Cont Eq pk 1.4 cm??? MV Peak Velocity 142.1 cm/s MV Peak Gradient 8.1 mmHg MV Mean Velocity 69.1 cm/s MV Mean Gradient 2.5 mmHg MV Velocity Time Integral 39.0 cm MR Peak Velocity 453.9 cm/s MR Peak Gradient 82.4 mmHg Mitral E Point Velocity 128.8 cm/s Mitral A Point Velocity 98.6 cm/s Mitral E to A Ratio 1.3 MV Deceleration Time 207.6 ms MV E' Velocity 3.4 cm/s Mitral E to MV E' Ratio 38.1 TR Peak Velocity 111.1 cm/s TR Peak Gradient 4.9 mmHg Right Ventricular Systolic Press 9.9 mmHg PV Peak Velocity 124.1 cm/s PV Peak Gradient 6.2 mmHg FINDINGS Left Ventricle Moderate concentric LVH. Mildly decreased left ventricular ejection fraction. Left ventricular ejection fraction is estimated at 45-50 %. No obvious regional wall motion abnormality Right Ventricle Normal right ventricular size. Right Atrium Normal right atrial size. Left Atrium Mildly increased left atrial volume. LA volume index= 35ml/m2 Mitral Valve Mild posterior MAC, Moderate MR. Aortic Valve Trileaflet aortic valve. trace AI. Tricuspid Valve Structurally normal tricuspid valve. Trace TR. Pulmonic Valve Pulmonic valve not well visualized. Trace PI. Pericardium No pericardial effusion Aorta Normal size aortic root. CONCLUSIONS Left ventricular ejection fraction is estimated at 45-50 %. Globally reduced mild LV systolic dysfunction Moderate concentric LVH. No obvious regional wall motion abnormality. Grade 2 diastolic dysfunction Mild left atrial dilatation Moderate mitral regurgitation Previewed by: Dr Toñito Ross (Electronically Signed) Final Date: 02 December 2022 21:48
[2022-12-03] MEDS: HEPARIN SOD,PORK IN 0.45% NACL 25,000 UNIT in 0.45% NACL 1 250ML.BAG IV SCH (02:55)
[2022-12-03] MEDS: SODIUM CHLORIDE 0.9% 1,000 ML IV SCH ×2 (02:55→15:30)
[2022-12-03] MEDS: FUROSEMIDE 10 MG/ML 4 ML VIAL IV SCH ×2 (02:57→12:40)
[2022-12-03] MEDS: ACETAMINOPHEN TAB 325 MG TAB PO PRN ×2 (03:04→18:51)
[2022-12-03] MEDS: sulfaSALAzine 500 MG TAB PO SCH ×3 (06:18→18:07)
[2022-12-03] MEDS: NITROGLYCERIN OINT 1 INCH/GM PACKET TOPICAL SCH ×3 (06:18→18:08)
[2022-12-03] MEDS: AMIODARONE 200 MG TAB PO SCH ×3 (06:19→21:03)
[2022-12-03] MEDS: ASPIRIN 81 MG PO SCH (06:19)
[2022-12-03] MEDS: SERTRALINE 100 MG TAB PO SCH (06:19)
[2022-12-03] MEDS: KETOTIFEN 0.025% OPHTH DROPS 5 ML BTL BOTH EYES SCH ×2 (06:19→20:05)
[2022-12-03] MEDS: DAPAGLIFLOZIN PROPANEDIOL 10 MG TABLET PO SCH (06:19)
[2022-12-03] MEDS: METOPROLOL TARTRATE 50 MG TAB PO SCH ×3 (06:19→21:02)
[2022-12-03] MEDS: INSULIN ASPART (NovoLOG) 100 UNIT/ML VIAL SQ SCH ×5 (06:23→20:59)
[2022-12-03 06:24] LABS: Glucose,Whole Blood 178 mg/dL (70-110)
[2022-12-03] MEDS ORDERED: HEPARIN SODIUM,PORCINE 10,000 UNIT in SODIUM CHLORIDE 0.9% 1,000 ML IRRIGATION PRN (07:00)
[2022-12-03] MEDS ORDERED: HEPARIN SODIUM,PORCINE (1 ML) 2,500 UNIT in SODIUM CHLORIDE 0.9% 250 ML IRRIGATION PRN (07:00)
[2022-12-03] MEDS ORDERED: ATORVASTATIN 80 MG TAB PO ONE (09:00)
[2022-12-03] MEDS ORDERED: ASPIRIN 325 MG TAB PO ONE (09:00)
[2022-12-03] MEDS ORDERED: CLOPIDOGREL 75 MG TAB PO STA ×2 (10:37→15:19)
[2022-12-03 11:24] LABS: Mean Platelet Volume 8.6; Platelet Count 419 k/uL (150-450)
[2022-12-03 11:26] LABS: Glucose,Whole Blood 214 mg/dL (70-110)
[2022-12-03 11:41] LABS: African American GFR (CKD) 67 (>60 ml/min/1.73 sqM); Anion Gap 10 mmol/L; Blood Urea Nitrogen 23 mg/dL (7-17); Calcium 7.7 mg/dL (8.4-10.2); Carbon Dioxide 24 mmol/L (22-30); Chloride 99 mmol/L (98-107); Glucose 252 mg/dL (74-99); Non-African American GFR(CKD) 58 (>60 ml/min/1.73 sqM); Potassium 3.3 mmol/L (3.5-5.1); Sodium 133 mmol/L (137-145)
[2022-12-03] MEDS ORDERED: VERAPAMIL 2.5 MG/ML 2 ML AMP ONE (14:53)
[2022-12-03] MEDS ORDERED: LIDOCAINE 1% INJ 10MG/ML (20 ML MDV) ONE (14:53)
[2022-12-03] MEDS ORDERED: IV FLUID CONTINUATION 1,000 ML IV ONE (15:50)
[2022-12-03] MEDS ORDERED: HEPARIN SODIUM 1,000 UN/ML (10ML VL) ONE ×2 (16:03→17:24)
[2022-12-03] MEDS ORDERED: fentaNYL (PF) 50 MCG/ML 2 ML AMP ONE (16:03)
[2022-12-03] MEDS ORDERED: fentaNYL (PF) 50 MCG/ML 2 ML AMP IVP ONE (16:05)
[2022-12-03] MEDS ORDERED: MIDAZOLAM 2 MG/2 ML VIAL IVP ONE (16:05)
[2022-12-03] MEDS ORDERED: LIDOCAINE 1% INJ 10MG/ML (20 ML MDV) SQ ONE (16:11)
[2022-12-03] MEDS: HEPARIN SODIUM 1,000 UN/ML (10ML VL) IV ONE ×5 (16:17→17:07)
[2022-12-03] MEDS ORDERED: NITROGLYCERIN 1000MCG/10ML SYRINGE INTRACORON ONE (17:18)
[2022-12-03] MEDS ORDERED: PHENYLEPHRINE-0.9% NACL SYG 1,000 MCG/10 ML SYRINGE IVP ONE (17:21)
[2022-12-03] MEDS ORDERED: HEPARIN SODIUM 1,000 UN/ML (10ML VL) IV ONE (17:25)
[2022-12-03] MEDS ORDERED: IOPAMIDOL-370 200ML BTL INJ ONE (17:26)
[2022-12-03] MEDS ORDERED: ATROPINE SULFATE 0.1 MG/ML 10ML SYRINGE IV PRN (17:39)
[2022-12-03] MEDS ORDERED: MAG HYDROX/AL HYDROX/SIMETH 30 ML CUP PO PRN (17:39)
[2022-12-03] MEDS ORDERED: NITROGLYCERIN SL TABS 0.4 MG TAB SUBLINGUAL PRN (17:39)
[2022-12-03] MEDS ORDERED: ZOLPIDEM 5 MG TAB PO PRN (17:39)
[2022-12-03] MEDS ORDERED: RX INFO: IV CONTRAST WAS GIVEN 1 EACH MISC MISCELLANE PRN (17:39)
--- NOTE | 2022-12-03 17:40 | P.PRCINT ---
Percutaneous Coronary Int. - Percutaneous Coronary Intervention Percutaneous Coronary Intervention: PROCEDURES PERFORMED: Left coronary angiography, ultrasound guided arterial access, PCI left main into LAD with a 3.5 x 28mm Xience AGNES, post dilated with a 3.5 NC balloon, IVUS LAD INDICATION: NSTEMI CONSENT:I have discussed the risks, benefits and alternative therapies for the above-mentioned procedure and for both sedation/analgesia as well as necessary blood product administration, if indicated, as they pertain to this patient. The patient has indicated understanding and acceptance of the risks and procedures discussed. PROCEDURE: After the risks, benefits and alternatives of the above mentioned procedure explained in detail with the patient, informed consent was obtained. Patient was taken to the catheterization lab and prepped and draped in usual fashion. Ultrasound guidance was used to assess for arterial access. 1% lidocaine was used to anesthetize the right radial artery given. A 6-Vietnamese sheath was placed in the right radial artery using modified Seldinger technique and ultrasound guidance. The decision was made to perform PTCA of the left main into the LAD. A 6-Vietnamese CLS 3.5 guide was used to engage the left main. A 0.014 BMW wire was advanced in the distal LAD. An additional 0.014 whisper wire with the help of a horse serum microcatheter was advanced in the circumflex. Attempts were made at passing the BODY SERVICE TEAM MEMBER of the circumflex with a 0.014 Fielder XT, 0.014 airline pilot flight instructor 200 howev er was not able easily passed especially giving tortuous takeoff of the circumflex. Therefore decision was made to perform provisional stenting of the left main and the LAD. Predilation was performed with a 3.0 x 12 mm balloon. Intravascular ultrasound showed reference left main of 3.5 mm with diffuse mild calcification however majority of plaque appeared more thrombus. Left main was predilated with good expansion with a 3.5 noncompliant balloon. Balloon angioplasty was performed of the proximal LAD with a 3.0 x 12 mm balloon. Next a 3.5 x 28 mm Xience AGNES was placed in the left main into LAD. The proximal portion of the stent was postdilated with a 3.5 noncompliant balloon. Repeat intravascular ultrasound was performed however only able to advance into the proximal LAD given tortuous LAD. Left main appeared well expanded with good stent apposition. Final angiograms were performed. Pre-intervention there is a 80% left main and 80% LAD stenosis with ARAVIND 3 flow and postintervention there was less than 10% stenosis with ARAVIND 3 flow. The right radial sheath and left ulnar sheath were removed and a TR band was placed with hemostasis achieved. The patient tolerated the procedure well. Patient was transported back to the post catheterization holding area in stable condition. Conscious Sedation: Patient was monitored under the direct supervision of myself for conscious sedation using Versed and fentanyl for a total duration of 76 minutes HEMODYNAMICS: Aorta: 110/70 SELECTIVE CORONARY ARTERIOGRAPHY: LEFT MAIN: The left main is a large caliber vessel which trifurcates into the LAD, ramus and circumflex. There is a hazy distal left main 80% stenosis LEFT ANTERIOR DESCENDING CORONARY ARTERY: LAD is a large caliber vessel which reaches the apex. There is a proximal LAD 80% stenosis and otherwise mild luminal irregularities. There is competitive flow with the mid LAD and WIL to diagonal backfilling however immediately after the diagonal, the LAD appears to have a 100% distal LAD stenosis. There are left to right collaterals. There is significant bridging of the mid LAD. RAMUS INTERMEDIUS: The ramus is a small caliber vessel with a superior and inferior branch with mild 30% proximal stenosis. LEFT CIRCUMFLEX CORONARY ARTERY: Left circumflex is a moderate caliber vessel with ostial 90% stenosis, followed by a proximal circumflex 100% subtotally occ luded circumflex. There are left to left collaterals to the circumflex. RIGHT CORONARY ARTERY: The right coronary artery was not imaged. FINAL IMPRESSION: 1. CAD as described above including distal left main 80% stenosis, proximal LAD 80% stenosis, mid to distal LAD 100% stenosis, circumflex 100% stenosis, RCA 100% stenosis 2. Known occluded SVG to PDA, patent WIL to LAD, atretic BARROW to OM 3. S/p PCI left main into LAD with a 3.5 x 28mm Xience AGNES, post dilated with a 3.5 NC balloon PLAN: 1. Aggressive risk factor modification per most recent ACC/AHA guidelines. 2. Continue dual antiplatelets with aspirin and Plavix for 12 months 3. May consider BODY SERVICE TEAM MEMBER attempt of the RCA, circumflex or distal LAD however appears likely be somewhat difficult and consider medical therapy.
[2022-12-03] MEDS ORDERED: SODIUM CHLORIDE 0.9% 1,000 ML in EMPTY BAG 1 BAG IV SCH (17:45)
[2022-12-03 17:53] LABS: Glucose,Whole Blood 156 mg/dL (70-110)
[2022-12-03] MEDS: CYANOCOBALAMIN 500 MCG TAB PO SCH (18:07)
[2022-12-03] MEDS ORDERED: POTASSIUM CHLORIDE ER 20 MEQ TAB.ER PO STA (18:29)
--- NOTE | 2022-12-03 18:45 | P.PN ---
Progress Note - Text Progress Note Date: 12/03/22 Chief Complaint: Short of breath This is a pleasant 77-year-old patient who follows with Dr. Yonathan Tapia. Chronic stable medical conditions include hypertension, hyperlipidemia, diabetes, prostatitis, atrial fibrillation. Crohn's disease. Has had 12 inches of small bowel removed. Averages about 4-5 bowel movements a day. Also coronary bypass in December 2021 and [place]. On November 26 underwent right hip replacement at [place]. Was discharged on November 28. Was told to hold off using her eliquis. Around 2:00 this morning patient woke up from sleep after she was coughing quite a bit then she started becoming short of breath. Did break out in a sweat: Clammy. And decided to go down to [facility]. No chest pain or pressure. Patient's troponin came back at 3. Transferred down here for further cardiac intervention. Currently propped up in bed. Son at the bedside. No chest pain. December 02: Patient underwent cardiac catheterization by Dr. Gates. No intervention was carried out. Complicated anatomy and findings. Discussed with him. He'll review patient's coronary bypass films, awaiting 2-D echo. Then make a decision about further intervention likely tomorrow. Laying in bed. No chest pain or shortness of breath. On IV heparin. On IV Lasix for CHF. December 03: Salt the patient this morning before going on for a cardiac catheterization. No chest pain. Resting in bed comfortably. Did a stent to LAD was done. More details and Dr. Gates's cardiac cath note. We'll cut back IV Lasix to once a day. Active Medications Acetaminophen (Acetaminophen Tab 325 Mg Tab) 650 mg PO Q6HR PRN PRN Reason: Mild Pain or Fever > 100.5 Last Admin: 12/03/22 03:04 Dose: 650 mg Al Hydroxide/Mg Hydroxide (Mag Hydrox/Al Hydrox/Simeth 30 Ml Cup) 30 ml PO Q4HR PRN PRN Reason: Heartburn Alprazolam (Alprazolam 0.25 Mg Tab) 0.25 mg PO Q6HR PRN PRN Reason: Mild Anxiety Alprazolam (Alprazolam 0.5 Mg Tab) 0.5 mg PO Q6HR PRN PRN Reason: Moderate Anxiety Last Admin: 12/02/22 21:33 Dose: 0.5 mg Amiodarone HCl (Amiodarone 200 Mg Tab) 200 mg PO BID [facility] Last Admin: 12/03/22 06:19 Dose: 200 mg Aspirin (Aspirin 81 Mg) 81 mg PO DAILY [facility] Last Admin: 12/03/22 06:19 Dose: Not Given Atorvastatin Calcium (Atorvastatin 20 Mg Tab) 20 mg PO HS [facility] Last Admin: 12/02/22 20:22 Dose: 20 mg Atropine Sulfate (Atropine Sulfate 0.1 Mg/Ml 10ml Syringe) 0.5 mg IV ONCE PRN PRN Reason: Symptomatic Bradycardia Calcium Carbonate/Glycine (Calcium Carbonate 500 Mg Chewable) 1,000 mg PO Q4HR PRN PRN Reason: Dyspepsia Clopidogrel Bisulfate (Clopidogrel 75 Mg Tab) 75 mg PO DAILY [facility]; Protocol Cyanocobalamin (Cyanocobalamin 500 Mcg Tab) 1,000 mcg PO W/SUPPER [facility] Last Admin: 12/03/22 18:07 Dose: 1,000 mcg Dapagliflozin (Dapagliflozin Propanediol 10 Mg Tablet) 10 mg PO DAILY [facility] Last Admin: 12/03/22 06:19 Dose: 10 mg Dextrose/Water (Dextrose 50% Syringe 50 Ml) 25 ml IVP PER PROTOCOL PRN; Protocol PRN Reason: Hypoglycemia Dextrose/Water (Dextrose 50% Syringe 50 Ml) 50 ml IVP PER PROTOCOL PRN; Protocol PRN Reason: Hypoglycemia Furosemide (Furosemide 10 Mg/Ml 4 Ml Vial) 40 mg IV DAILY [facility] Heparin Sodium (Porcine) (Heparin Sodium 1,000 Un/Ml (10ml Vl)) 0 unit IV PER PROTOCOL PRN; Protocol PRN Reason: Low PTT Last Admin: 12/03/22 02:56 Dose: 1,050 unit Sodium Chloride (Saline 0.9%) 1,000 mls @ 75 mls/hr IV .[id number] [facility] Last Admin: 12/03/22 15:30 Dose: 75 mls/hr Heparin Sodium (Porcine) 10, (000 unit/ Sodium Chloride) 1,001 mls @ 999 mls/hr IRRIGATION ONCE PRN PRN Reason: INTRA-OP Stop: 12/03/22 23:00 Heparin Sodium (Porcine) 2,500 (unit/ Sodium Chloride) 250.5 mls @ 250 mls/hr IRRIGATION ONCE PRN PRN Reason: INTRA-OP Stop: 12/03/22 23:00 Sodium Chloride 1,000 ml/ IV (Solution) 1,000 mls @ 56 mls/hr IV .[id number] [facility] Insulin Aspart (Insulin Aspart (Novolog) 100 Unit/Ml Vial) 0 unit SQ ACHS [facility]; Protocol Last Admin: 12/03/22 18:07 Dose: 1 unit Ketotifen Fumarate (Ketotifen 0.025% Ophth Drops 5 Ml Btl) 1 drops BOTH EYES BID [facility] Last Admin: 12/03/22 06:19 Dose: Not Given Losartan Potassium (Losartan 25 Mg Tab) 12.5 mg PO DAILY [facility] Melatonin (Melatonin 3 Mg Tablet) 3 mg PO HS PRN PRN Reason: Insomnia Metoprolol Tartrate (Metoprolol Tartrate 50 Mg Tab) 50 mg PO BID [facility] Last Admin: 12/03/22 06:19 Dose: 50 mg Miscellaneous Information (Rx Info: Iv Contrast Was Given 1 Each Misc) 1 each MISCELLANE DAILY PRN PRN Reason: Per Protocol Stop: 12/05/22 17:40 Naloxone HCl (Naloxone 0.4 Mg/Ml 1 Ml Vial) 0.2 mg IV Q2M PRN PRN Reason: Opioid Reversal Nitroglycerin (Nitroglycerin Oint 1 Inch/Gm Packet) 1 inch TOPICAL Q6HR [facility] Last Admin: 12/03/22 18:08 Dose: Not Given Nitroglycerin (Nitroglycerin Sl Tabs 0.4 Mg Tab) 0.4 mg SUBLINGUAL Q5M PRN PRN Reason: Chest Pain Ondansetron HCl (Ondansetron 4 Mg/2 Ml Vial) 4 mg IVP Q8HR PRN PRN Reason: Nausea And Vomiting Sertraline HCl (Sertraline 100 Mg Tab) 100 mg PO DAILY [facility] Last Admin: 12/03/22 06:19 Dose: 100 mg Sulfasalazine (Sulfasalazine 500 Mg Tab) 500 mg PO Q6HR [facility]; Protocol Stop: 03/10/23 13:31 Last Admin: 12/03/22 18:07 Dose: 500 mg Zolpidem Tartrate (Zolpidem 5 Mg Tab) 5 mg PO HS PRN PRN Reason: Insomnia Past medical history to include: Hypertension, hyperlipidemia, diabetes, atrial fibrillation, osteoarthritis, coronary artery disease with a bypass in December 31 and . Crohn's disease with 12 inches of small bowel removed many years ago. Social history: Patient smoked for about 15 years stopped in . Lives with 2 sons and daughter. Physical examination: VITAL SIGNS: 97.6, 64, 20, 11 2 x 69, 93% room air GENERAL: Laying flat in bed, not in distress EYES: Pupils equal. Conjunctiva normal. HEENT: External appearance of nose and ears normal, oral cavity grossly normal. NECK: JVD not raised; masses not palpable. HEART: First and second heart sounds are normal; no edema. LUNGS: Respiratory rate normal; lung solorio clear ABDOMEN: Soft, nontender, liver spleen not palpable, no masses palpable. PSYCH: Alert and oriented x3; mood and affect normal. MUSCULOSKELETAL:No Clubbing/cyanosis;muscles-grossly intact. OA INVESTIGATIONS, reviewed in the clinical context: December 03: Sodium 133 potassium 3.3 BUN 23 creatinine 0.94 2-D echocardiogram: EF 45-50% no wall motion abnormality. Moderate MR. Trace TR. December 02: White count 7.4 hemoglobin 10.4 platelets 406 Troponin I 10.1 From [facility]: Sodium 131 potassium 4 BUN 18 creatinine 0.700.7 hemoglobin 10.8 platelets 22 lactic acid 1.8 Chest CTA: Negative for pulmonary embolism. Possible CHF. EKG tracing personally reviewed by me-normal sinus rhythm. ST/T-wave changes. Assessment and plan: -Acute non-Q-wave WI. In a patient with a coronary bypass in December 2021 Patient symptoms started about 2 AM today. Initial troponin 3 repeat troponin 10. Nonspecific EKG changes. December 01: Patient underwent cardiac catheterization by Dr. Gates. No intervention. He'll further review old films and then decide. December 03: Stent to LAD. IV heparin and aspirin. Lopressor -CAD with coronary bypass December 2021 [facility] -IV heparin monitoring Follow PTT -Acute congestive heart exacerbation. From a combination of systolic and diastolic dysfunction. EF 45-50%: Slow to respond Decrease IV Lasix to 40 mg once daily -Diabetes mellitus type 2 on oral hypoglycemic Glucophage-hold. farxiga. Accu-Cheks and sliding scale insulin -Paroxysmal atrial fibrillation currently in sinus rhythm. Amiodarone. Eliquis-held for now. Lopressor -Chronic Crohn's disease. Has had 12 inches of small bowel removed many years ago. Baseline 4-5 bowel movements a day. Sulfasalazine. Cholestyramine. -Essential hypertension Lopressor -Hyperlipidemia Lipitor -Depression, anxiety Zoloft IV Lasix cutback to 40 mg daily.. IV heparin. Stent to LAD. Repeat labs in the morning.
[2022-12-03 20:17] LABS: Glucose,Whole Blood 354 mg/dL (70-110)
[2022-12-03] MEDS: ATORVASTATIN 20 MG TAB PO SCH (20:58)
[2022-12-04] MEDS: NITROGLYCERIN OINT 1 INCH/GM PACKET TOPICAL SCH ×2 (00:43→06:22)
[2022-12-04] MEDS: SODIUM CHLORIDE 0.9% 1,000 ML IV SCH (00:44)
[2022-12-04] MEDS: sulfaSALAzine 500 MG TAB PO SCH ×3 (00:50→11:58)
[2022-12-04] MEDS: ACETAMINOPHEN TAB 325 MG TAB PO PRN ×2 (01:19→09:33)
[2022-12-04] MEDS: INSULIN ASPART (NovoLOG) 100 UNIT/ML VIAL SQ SCH ×2 (06:28→14:04)
[2022-12-04 06:31] LABS: Glucose,Whole Blood 172 mg/dL (70-110)
--- NOTE | 2022-12-04 07:46 | XR ---
EXAMINATION TYPE: XR chest 2V DATE OF EXAM: 12/04/2022 6:51 AM COMPARISON: Chest radiographs from 12/01/2022 TECHNIQUE: XR chest 2V Frontal and lateral views of the chest. CLINICAL INDICATION:Female, 77 years old with history of Follow-up CHF; FINDINGS: Lungs/Pleura: There is no evidence of pleural effusion, focal consolidation, or pneumothorax. Chroni c senescent parenchymal change. Pulmonary vascularity: Unremarkable. Heart/mediastinum: Cardiomediastinal silhouette is stable. Atherosclerotic calcifications are seen i n the aorta. Left atrial appendage occlusion devices present. Musculoskeletal: Multiple level degenerative disc disease changes seen throughout the spine. Midline sternotomy wires are noted and stable. There is again fracture of the lowest sternotomy wire. IMPRESSION: Chronic changes without evidence for acute process.
[2022-12-04 07:52] LABS: Mean Platelet Volume 7.3; Platelet Count 420 k/uL (150-450)
[2022-12-04 08:21] LABS: African American GFR (CKD) 67 (>60 ml/min/1.73 sqM); Anion Gap 10 mmol/L; Blood Urea Nitrogen 20 mg/dL (7-17); Calcium 7.9 mg/dL (8.4-10.2); Carbon Dioxide 22 mmol/L (22-30); Chloride 104 mmol/L (98-107); Glucose 161 mg/dL (74-99); Non-African American GFR(CKD) 58 (>60 ml/min/1.73 sqM); Potassium 3.6 mmol/L (3.5-5.1); Sodium 136 mmol/L (137-145)
[2022-12-04] MEDS ORDERED: CLOPIDOGREL 75 MG TAB PO SCH (09:00)
[2022-12-04] MEDS ORDERED: LOSARTAN 25 MG TAB PO SCH (09:00)
[2022-12-04] MEDS ORDERED: FUROSEMIDE 10 MG/ML 4 ML VIAL IV SCH (09:00)
[2022-12-04] MEDS: DAPAGLIFLOZIN PROPANEDIOL 10 MG TABLET PO SCH (09:33)
[2022-12-04] MEDS: SERTRALINE 100 MG TAB PO SCH (09:33)
[2022-12-04] MEDS: ASPIRIN 81 MG PO SCH (09:33)
[2022-12-04] MEDS: METOPROLOL TARTRATE 50 MG TAB PO SCH (09:33)
[2022-12-04] MEDS: AMIODARONE 200 MG TAB PO SCH (09:33)
[2022-12-04] MEDS: KETOTIFEN 0.025% OPHTH DROPS 5 ML BTL BOTH EYES SCH (09:34)
[2022-12-04 11:11] VITALS: BMI 17.5
[2022-12-04 11:38] LABS: Glucose,Whole Blood 350 mg/dL (70-110)
[2022-12-04 12:33] VITALS: PULSE 64; RESP 18; TEMP 98
--- NOTE | 2022-12-04 12:54 | P.PN ---
Subjective History of present illness: This is a 77-year-old female follows with a team assembler at [facility] in [place]. She has a past medical history of coronary artery disease, diabetes mellitus type 2, paroxysmal atrial fibrillation, TIA, hypertension, hyperlipidemia, small bowel obstruction with previous 2 surgeries with bowel resection. She has history of CABG done in December 2021 three-vessel. Patient also has a history of right hip surgery done last week on Thursday and was discharged from the hospital on Thursday. Her team assembler's is out of [facility] but follows in [place]. Patient initially presented to outside [facility] regarding dyspnea. Patient states that her pulse ox was found to be low but her breathing since reversed and she was placed on oxygen. At [facility], troponins were 3.4 3.6, hemoglobin 10.8, creatinine normal. EKG was sinus rhythm with no acute changes. Patient is seen today in the emergency center waiting for a bed on the cardiac stepdown unit. EKG sinus rhythm Troponin 10.1. Home cardiac medications: Eliquis 5 mg twice daily, aspirin 81 mg daily, atorvastatin 20 mg at bedtime, Farxiga 10 mg daily, Lasix 20 mg daily, Lopressor 50 mg twice daily, potassium chloride 10 mEq daily. 12/02 Yesterday, patient underwent LHC with Dr. Gates that revealed diffuse [place] CAD including distal left main 80% stenosis, proximal LAD 80% stenosis, mid to distal LAD 100% stenosis, circumflex 99% stenosis, RCA 100% stenosis. Occluded SVG to PDA, patent WIL to diagonal, patent BARROW to LAD however atretic and no fully opacifying the distal LAD. High normal left sided filling pressures. Plan is for aggressive risk factor modification. Dr. Gates has reviewed CABG report which has been obtained from [facility] and discussed in detail the need to pursue stenting of the left main stenting into the circumflex/LAD. Patient is agreeable and will be scheduled tomorrow afternoon. Patient denies having any chest pain, no shortness of breath, no fever or chills. She does dill ve some left wrist discomfort. Good pulses bilaterally. Echocardiogram has been completed and report is pending. 12/04 Patient seen and examined. Patient underwent heart catheterization yesterday with stenting of her left main and LAD. She did well and denies any chest pain or shortness breath. Right radial site without hematoma. Physical examination: Gen: This is a 77-year-old female. She is resting in bed and appears to be comfortable and in no acute distress. VS: reviewed HEENT: Head is atraumatic, normocephalic. Pupils equal, round. Sclerae is anicteric. NECK: Supple. No JVD. . LUNGS: Clear to auscultation. No wheezes or rhonchi. No intercostal retractions. HEART: Regular rate and rhythm. No murmur. ABDOMEN: Soft No tenderness. EXTREMITIES: No pedal edema. No calf tenderness. NEUROLOGICAL: Patient is awake, alert and oriented x3. Assessment: Non-ST elevated myocardial infarction History of coronary artery disease with previous CABG Paroxysmal atrial fibrillation TIA Hypertension Hyperlipidemia S/p PCI left main into LAD 12/03 Plan: Patient is s/p PCI left main and LAD and not have any significant angina-type symptoms. Appears stable for discharge home on Eliquis as well as Plavix, no aspirin. Follow-up in office in 1-2 weeks. Objective - Vital Signs Vital signs: Vital Signs Temp 98.0 F 12/04/22 12:00 Pulse 64 12/04/22 12:00 Resp 18 12/04/22 12:00 BP 89/53 12/04/22 12:00 Pulse Ox 98 12/04/22 12:33 FiO2 Intake & Output 12/03/22 12/04/22 12/04/22 18:59 06:59 18:59 Intake Total 1520 Output Total 1600 750 400 Balance -80 -750 -400 Weight 45 kg 45 kg Intake: IV 500 Oral 1020 Output: Urine 1600 750 400 Other: Voiding Method Indwelling Catheter Indwelling Catheter Indwelling Catheter # Bowel Movements 1 2 1 - Labs CBC & Chem 7: 12/04/22 07:22 12/04/22 07:22 Labs: Abnormal Lab Results - Last 24 Hours (Table) 12/03/22 12/03/22 12/04/22 Range/Units 17:51 20:16 06:24 Sodium (137-145) mmol/L BUN (7-17) mg/dL Glucose (74-99) mg/dL POC Glucose (mg/dL) 156 H 354 H 172 H (70-110) mg/dL Calcium (8.4-10.2) mg/dL 12/04/22 12/04/22 Range/Units 07:22 11:36 Sodium 136 L (137-145) mmol/L BUN 20 H (7-17) mg/dL Glucose 161 H (74-99) mg/dL POC Glucose (mg/dL) 350 H (70-110) mg/dL Calcium 7.9 L (8.4-10.2) mg/dL
--- NOTE | 2022-12-04 14:17 | P.DS ---
Providers Date of admission: 12/01/22 11:49 Expected date of discharge: 12/04/22 Attending physician: Stephen Cabrera Consults: 12/01/22 11:49 Consult Physician Urgent Consulting Provider: Mikey Gates Consult Reason/Comments: nstemi, chf Do you want consulting provider notified?: Yes 12/03/22 17:40 Consult Physician Routine Consulting Provider: [facility] Consult Reason/Comments: Post Interventional Patient Do you want consulting provider notified?: Already Contacted Primary care physician: Yonathan Tapia [facility] Course: * 77-year-old patient who follows with Dr. Yonathan Tapia. Chronic stable medical conditions include hypertension, hyperlipidemia, diabetes, prostatitis, atrial fibrillation. Crohn's disease. Has had 12 inches of small bowel removed. Averages about 4-5 bowel movements a day. Also coronary bypass in December 2021 and [place]. On November 26 underwent right hip replacement at [place]. Was discharged on November 28. Was told to hold off using her eliquis. * Around 2:00 this morning patient woke up from sleep after she was coughing quite a bit then she started becoming short of breath. Did break out in a sweat: Clammy. And decided to go down to [facility]. No chest pain or pressure. Patient's troponin came back at 3. Transferred down here for further cardiac intervention. * Currently propped up in bed. Son at the bedside. No chest pain. * December 02: Patient underwent cardiac catheterization by Dr. Gates. No intervention was carried out. Complicated anatomy and findings. Discussed with him. He'll review patient's coronary bypass films, awaiting 2-D echo. Then make a decision about further intervention likely tomorrow. Laying in bed. No chest pain or shortness of breath. On IV heparin. On IV Lasix for CHF. * December 03: Salt the patient this morning before going on for a cardiac catheterization. No chest pain. Resting in bed comfortably. Did a stent to LAD was done. More details and Dr. Gates's cardiac cath note. We'll cut back IV Lasix to once a day. * December 04: Patient seen and evaluated bedside, patient was seen by cardiology and cleared for discharge. Continue patient on current cardiac medicines however losartan discontinued secondary to hypotension. Continue patient on current dose of Lasix. Continue patient on Eliquis and Plavix. Patient already on Lipitor at home. Patient ambulated in the hallway remains asymptomatic systolic blood pressure ranging between 9200 PHYSICAL EXAMINATION: GENERAL: The patient is alert and oriented x3, not in any acute distress. Well developed, well nourished. HEENT: Pupils are round and equally reacting to light. EOMI. No scleral icterus. No conjunctival pallor. Normocephalic, atraumatic. No pharyngeal erythema. No thyromegaly. CARDIOVASCULAR: S1 and S2 present. No murmurs, rubs, or gallops. PULMONARY: Chest is clear to auscultation, no wheezing or crackles. ABDOMEN: Soft, nontender, nondistended, normoactive bowel sounds. No palpable organomegaly. MUSCULOSKELETAL: No joint swelling or deformity. EXTREMITIES: No cyanosis, clubbing, or pedal edema. NEUROLOGICAL: Gross neurological examination did not reveal any focal deficits. SKIN: No rashes. Assessment: Assessment and plan: Acute non-Q-wave NE. In a patient with a coronary bypass in December 2021 CAD with coronary bypass December 2021 Acute congestive heart exacerbation. From a combination of systolic and diastolic dysfunction. EF 45-50%: Slow to respond Diabetes mellitus type 2 on oral hypoglycemic Paroxysmal atrial fibrillation currently in sinus rhythm. Chronic Crohn's disease. Has had 12 inches of small bowel removed many years ago. Essential hypertension Hyperlipidemia Depression, anxiety In regards to coronary artery disease, patient seen by cardiology status was cardiac cath to left main and LAD. Patient appears stable continue patient on Plavix and Eliquis no need for aspirin per cardiology outpatient follow-up in 1 week's with cardiology In regards to congestive heart failure continue patient on Lasix. Losartan discontinued secondary to hypotension outpatient follow-up with cardiology recommended In regards to diabetes mellitus, continue home regimen upon discharge Regards to atrial fibrillation, continue Eliquis, continue metoprolol holding parameters given to patient Outpatient follow-up with PCP and cardiology Patient remains asymptomatic ambulated in the hallway prior to discharge Patient Condition at Discharge: Fair Plan - Discharge Summary Discharge Rx Participant: Yes New Discharge Prescriptions: New Clopidogrel [Plavix] 75 mg PO DAILY 30 Days #30 tab Continue Cyanocobalamin [Vitamin B-12] 1,000 mg PO W/SUPPER Ferrous Sulfate [Iron (65 MG Elemental)] 325 mg PO W/SUPPER ALPRAZolam [Xanax] 0.25 mg PO DAILY PRN PRN Reason: Anxiety Apixaban [Eliquis] 5 mg PO BID Cranberry Fruit Extract [Cranberry] 500 mg PO W/SUPPER Insulin Lispro [humaLOG Kwikpen] See Protocol SQ ACHS PRN PRN Reason: Blood Sugar - High Cholestyramine (with Sugar) [Questran Packet] 4 gm PO BID Alendronate Sodium 70 mg PO WE metFORMIN HCL [Glucophage] 500 mg PO BID Dapagliflozin Propanediol [Farxiga] 10 mg PO DAILY sulfaSALAzine [Azulfidine] 500 mg PO Q6HR Furosemide [Lasix] 20 mg PO DAILY Atorvastatin [Lipitor] 20 mg PO HS Potassium Chloride [Klor-Con 10 ER] 10 meq PO DAILY Amiodarone HCl [Pacerone] 200 mg PO BID Ketotifen 0.025% Ophth Soln [Zaditor] 1 drop BOTH EYES BID Meclizine HCl [Antivert] 25 mg PO BID Metoprolol Tartrate [Lopressor] 50 mg PO BID Ergocalciferol [Vitamin D2 (1250 Mcg = 96390 Iu)] 1,250 mcg PO WE Sertraline [Zoloft] 100 mg PO DAILY Discontinued Aspirin 81 mg PO DAILY Discharge Medication List Cyanocobalamin [Vitamin B-12] 1,000 mg PO W/SUPPER 09/14/14 [History] Ferrous Sulfate [Iron (65 MG Elemental)] 325 mg PO W/SUPPER 09/14/14 [History] ALPRAZolam [Xanax] 0.25 mg PO DAILY PRN 07/02/16 [History] Apixaban [Eliquis] 5 mg PO BID 07/02/16 [History] Cranberry Fruit Extract [Cranberry] 500 mg PO W/SUPPER 07/02/16 [History] Insulin Lispro [humaLOG Kwikpen] See Protocol SQ ACHS PRN 07/02/16 [History] Cholestyramine (with Sugar) [Questran Packet] 4 gm PO BID 02/01/18 [History] Alendronate Sodium 70 mg PO WE 08/04/19 [History] metFORMIN HCL [Glucophage] 500 mg PO BID 08/04/19 [History] Dapagliflozin Propanediol [Farxiga] 10 mg PO DAILY 02/16/20 [History] sulfaSALAzine [Azulfidine] 500 mg PO Q6HR 02/16/20 [History] Amiodarone HCl [Pacerone] 200 mg PO BID 09/18/22 [History] Furosemide [Lasix] 20 mg PO DAILY 09/18/22 [History] Ketotifen 0.025% Ophth Soln [Zaditor] 1 drop BOTH EYES BID 09/18/22 [History] Meclizine HCl [Antivert] 25 mg PO BID 09/18/22 [History] Metoprolol Tartrate [Lopressor] 50 mg PO BID 09/18/22 [History] Atorvastatin [Lipitor] 20 mg PO HS 12/01/22 [History] Ergocalciferol [Vitamin D2 (1250 Mcg = 81088 Iu)] 1,250 mcg PO WE 12/01/22 [History] Potassium Chloride [Klor-Con 10 ER] 10 meq PO DAILY 12/01/22 [History] Sertraline [Zoloft] 100 mg PO DAILY 12/01/22 [History] Clopidogrel [Plavix] 75 mg PO DAILY 30 Days #30 tab 12/04/22 [Rx] Follow up Appointment(s)/Referral(s): Yonathan Tapia MD [Primary Care Provider] - 1-2 days Mikey Gates DO [STAFF PHYSICIAN] - 1 Week Activity/Diet/Wound Care/Special Instructions: Monitoring of blood pressure at home hold metoprolol if systolic blood pressure less than 100 heart rate less than 60 Discharge Disposition: HOME SELF-CARE
[2022-12-04] MEDS ORDERED: SODIUM CHLORIDE 0.9% 250 ML IV ONE (14:36)
[2022-12-04 16:31] LABS: Glucose,Whole Blood 196 mg/dL (70-110)
[2022-12-04 16:45] VITALS: BP 115/64
[2022-12-04] MEDS ORDERED: APIXABAN 5 MG TAB PO SCH (21:00)
== END 2022-12-04 17:11 | disposition home or self-care (01) | DRG 321 ==
LOC: EC 10:45 → 3SCARD 11:49
PROVIDERS: ADMIT Hospitalist; ATTEND Hospitalist
PROC: B2111ZZ Fluoroscopy of Multiple Coronary Arteries using Low Osmolar Contrast (ICD-10-PCS; 2022-12-01)
PROC: B2131ZZ Fluoroscopy of Multiple Coronary Artery Bypass Grafts using Low Osmolar Contrast (ICD-10-PCS; 2022-12-01)
PROC: B2181ZZ Fluoroscopy of Left Internal Mammary Bypass Graft using Low Osmolar Contrast (ICD-10-PCS; 2022-12-01)
PROC: 027034Z Dilation of Coronary Artery, One Artery with Drug-eluting Intraluminal Device, Percutaneous Approach (ICD-10-PCS; principal; 2022-12-01 15:40)
PROC: 4A023N8 Measurement of Cardiac Sampling and Pressure, Bilateral, Percutaneous Approach (ICD-10-PCS; 2022-12-01 15:40)
DX: I21.4 Non-ST elevation (NSTEMI) myocardial infarction (principal); I50.31 Acute diastolic (congestive) heart failure; I25.810 Atherosclerosis of coronary artery bypass graft(s) without angina pectoris; K50.90 Crohn's disease, unspecified, without complications; G45.9 Transient cerebral ischemic attack, unspecified; I25.10 Atherosclerotic heart disease of native coronary artery without angina pectoris; I48.0 Paroxysmal atrial fibrillation; Z79.01 Long term (current) use of anticoagulants; F32.A Depression, unspecified; F41.9 Anxiety disorder, unspecified; I08.1 Rheumatic disorders of both mitral and tricuspid valves; I11.0 Hypertensive heart disease with heart failure; E78.5 Hyperlipidemia, unspecified; Z98.61 Coronary angioplasty status; G47.00 Insomnia, unspecified; I25.2 Old myocardial infarction; Z79.82 Long term (current) use of aspirin; Z79.84 Long term (current) use of oral hypoglycemic drugs; Z79.899 Other long term (current) drug therapy; Z86.73 Personal history of transient ischemic attack (TIA), and cerebral infarction without residual deficits; Z96.641 Presence of right artificial hip joint; Z88.1 Allergy status to other antibiotic agents; Z88.5 Allergy status to narcotic agent; Z98.51 Tubal ligation status
CPT/HCPCS: 71045; 71046; 76937; 80048; 80061; 83036; 84484; 85025; 85049; 85610; 85730; 92978; 93005; 93306; 93459; 94760; 96365; 96375; 99291

== ENCOUNTER 2022-12-11 10:34 | Inpatient (IN) | payer MEDICARE, OTHER ==
[2022-12-11 12:17] LABS: Basophils % (A) 0 %; Eosinophils # (A) 0.2 k/uL (0-0.7); Eosinophils % (A) 2 %; HCT 29.7 % (34.0-46.0); HGB 9.7 gm/dL (11.4-16.0); Lymphocytes # (A) 1.4 k/uL (1.0-4.8); Lymphocytes % (A) 15 %; MCH 31.6 pg (25.0-35.0); MCHC 32.8 g/dL (31.0-37.0); MCV 96.4 fL (80.0-100.0); Mean Platelet Volume 7.5; Monocytes # (A) 0.5 k/uL (0-1.0); Monocytes % (A) 5 %; Neutrophils # (A) 7.2 k/uL (1.3-7.7); Neutrophils % (A) 76 %; Platelet Count 653 k/uL (150-450); RBC 3.08 m/uL (3.80-5.40); RDW 14.4 % (11.5-15.5); WBC 9.5 k/uL (3.8-10.6)
[2022-12-11] MEDS ORDERED: SODIUM CHLORIDE 0.9% 1,000 ML IV STA (12:20)
[2022-12-11] MEDS ORDERED: MORPHINE SULFATE 4 MG/ML SYRINGE IV PRN (12:21)
[2022-12-11] MEDS ORDERED: NALOXONE 0.4 MG/ML 1 ML VIAL IV PRN (12:21)
[2022-12-11 12:33] LABS: ALT 17 U/L (4-34); AST 21 U/L (14-36); African American GFR (CKD) 79 (>60 ml/min/1.73 sqM); Albumin 3.2 g/dL (3.5-5.0); Alkaline Phosphatase 89 U/L (38-126); Amylase 66 U/L (30-110); Anion Gap 9 mmol/L; Blood Urea Nitrogen 18 mg/dL (7-17); Calcium 8.2 mg/dL (8.4-10.2); Carbon Dioxide 20 mmol/L (22-30); Chloride 105 mmol/L (98-107); Glucose 136 mg/dL (74-99); Lipase 65 U/L (23-300); Non-African American GFR(CKD) 69 (>60 ml/min/1.73 sqM); Potassium 4.7 mmol/L (3.5-5.1); Sodium 134 mmol/L (137-145); Total Bilirubin 0.3 mg/dL (0.2-1.3); Total Protein 6.1 g/dL (6.3-8.2)
--- NOTE | 2022-12-11 12:41 | ED ---
General Adult HPI - General Chief complaint: Abdominal Pain Stated complaint: Urinary retention Time Seen by Provider: 12/11/22 10:52 Source: patient, EMS, RN notes reviewed, old records reviewed Mode of arrival: EMS Limitations: no limitations - History of Present Illness Initial comments: Patient is a 77-year-old female transferred from [facility] for surgical evaluation. Patient originally presented to the outside hospital for urinary retention. Stewart catheter was placed which relieved her retention. Abdominal pain is improved at this time however patient is also constipated. On CT imaging, there was concern for fecal impaction with possible rectal wall pneumatosis and ischemic stercoral colitis. Patient was transferred here for further evaluation. Patient received a dose of Levaquin at the outside hospital. States her pain is improved. No other acute complaints at this time. Last good bowel movement was 3 days ago per patient. Presents for subsequent evaluation. - Related Data Home Medications Medication Instructions Recorded Confirmed Cyanocobalamin [Vitamin B-12] 1,000 mg PO W/SUPPER 09/14/14 12/11/22 Ferrous Sulfate [Iron (65 MG 325 mg PO W/SUPPER 09/14/14 12/11/22 Elemental)] ALPRAZolam [Xanax] 0.25 mg PO DAILY PRN 07/02/16 12/11/22 Apixaban [Eliquis] 5 mg PO BID 07/02/16 12/11/22 Cranberry Fruit Extract [Cranberry] 500 mg PO W/SUPPER 07/02/16 12/11/22 Insulin Lispro [humaLOG Kwikpen] See Protocol SQ ACHS PRN 07/02/16 12/11/22 Cholestyramine (with Sugar) 4 gm PO BID 02/01/18 12/11/22 [Questran Packet] Alendronate Sodium 70 mg PO WE 08/04/19 12/11/22 metFORMIN HCL [Glucophage] 500 mg PO BID 08/04/19 12/11/22 Dapagliflozin Propanediol [Farxiga] 10 mg PO DAILY 02/16/20 12/11/22 sulfaSALAzine [Azulfidine] 500 mg PO Q6HR 02/16/20 12/11/22 Amiodarone HCl [Pacerone] 200 mg PO BID 09/18/22 12/11/22 Furosemide [Lasix] 20 mg PO DAILY 09/18/22 12/11/22 Ketotifen 0.025% Ophth Soln 1 drop BOTH EYES BID 09/18/22 12/11/22 [Zaditor] Meclizine HCl [Antivert] 25 mg PO BID 09/18/22 12/11/22 Metoprolol Tartrate [Lopressor] 50 mg PO BID 09/18/22 12/11/22 Atorvastatin [Lipitor] 20 mg PO HS 12/01/22 12/11/22 Ergocalciferol [Vitamin D2 (1250 1,250 mcg PO WE 12/01/22 12/11/22 Mcg = 97818 Iu)] Potassium Chloride [Klor-Con 10 ER] 10 meq PO DAILY 12/01/22 12/11/22 Sertraline [Zoloft] 100 mg PO DAILY 12/01/22 12/11/22 Nitrofurantoin Monohyd/M-Cryst 100 mg PO Q12HR 12/11/22 12/11/22 [Macrobid] Previous Rx's Medication Instructions Recorded Clopidogrel [Plavix] 75 mg PO DAILY 30 Days #30 tab 12/04/22 Allergies Allergy/AdvReac Type Severity Reaction Status Date / Time amoxicillin trihydrate Allergy Unknown Rash/Hives Verified 12/11/22 11:30 [From Augmentin] naproxen Allergy Unknown Itching Verified 12/11/22 11:30 nystatin Allergy Unknown Red Verified 12/11/22 11:30 Burning Skin and Rash potassium clavulanate Allergy Unknown Rash/Hives Verified 12/11/22 11:30 [From Augmentin] latex Allergy Rash/Hives Verified 12/11/22 11:30 Review of Systems ROS Statement: Those systems with pertinent positive or pertinent negative responses have been documented in the HPI. Review of Systems: CONST: Denies fever EYES: Denies blurry vision ENT: Denies nasal congestion C/V: Denies Chest pain RESP: Denies shortness of breath GI: Denies abdominal pain : Denies dysuria SKIN: Denies rash. MSK: Denies joint pain. NEURO: Denies headache ROS Other: All systems not noted in ROS Statement are negative. Past Medical History Past Medical History: Atrial Fibrillation, CVA/TIA, Diabetes Mellitus, Hyperlipidemia, Hypertension, Osteoarthritis (OA) Additional Past Medical History / Comment(s): VARICOSE VEINS, hx bowel obstruction and had TIA after surgery in 11/2015- some loss of memory, irregular bowel movements, blockage of left carotid artery, anemia History of Any Multi-Drug Resistant Organisms: None Reported Past Surgical History: Adenoidectomy, Appendectomy, Bowel Resection, Breast Surgery, Hernia Repair, Tonsillectomy Additional Past Surgical History / Comment(s): MARANDA BREAST Biopsy, rt lumpectomy, HEMORRHOIDECTOMY, fx LEFT ANKLE ORIF, RT THUMB TENDON, NEUROMA RT FOOT, LEFT O VARY AND TUBE removed. , LASER SURG RIGHT LEG VEINS., bowel surgery for twisted bowel 1960, bowel resection 11/2015, bleeding ulcer,Excisional of left breast, right hip replacement, Past Anesthesia/Blood Transfusion Reactions: No Reported Reaction Additional Past Anesthesia/Blood Transfusion Reaction / Comment(s): no hx of problems with prior blood transfusion Past Psychological History: Anxiety Smoking Status: Never smoker Past Alcohol Use History: None Reported Past Drug Use History: None Reported - Past Family History Father Family Medical History: Cancer Additional Family Medical History / Comment(s): KIDNEY CA Mother Family Medical History: Cancer Additional Family Medical History / Comment(s): OVARIAN CA, LEUKEMIA General Exam - General Exam Comments Initial Comments: General: Appears in no acute distress. HEAD: Normal with no signs of head trauma. EYES: PERRLA, EOMI, conjunctiva normal, no discharge. ENT: Hearing grossly intact, normal oropharynx. RESPIRATORY: Clear breath sounds bilaterally. No wheezes, rales, or rhonchi. C/V: Regular rate and rhythm. S1 and S2 auscultated, no edema, peripheral pulse s 2+ and intact throughout ABD: Abd is soft, nontender, nondistended. No significant tenderness on palpation. No guarding. EXT: Normal range of motion, no obvious deformity SKIN: No rashes or lesions observed on exposed skin. NEURO: Alert and oriented 4. Limitations: no limitations Course Vital Signs 12/11/22 10:36 Temperature 97.5 F L Pulse Rate 86 Respiratory 16 Rate Blood Pressure 112/61 O2 Sat by Pulse 99 Oximetry Medical Decision Making - Medical Decision Making Was pt. sent in by a medical professional or institution (, PA, CODING TEAM LEAD, urgent care, hospital, or custodial...) When possible be specific @ -No Did you speak to anyone other than the patient for history (EMS, parent, family, police, friend...)? What history was obtained from this source @ -No Did you review nursing and triage notes (agree or disagree)? Why? @ -I reviewed and agree with nursing and triage notes Were old charts reviewed (outside hosp., previous admission, EMS record, old EKG, old radiological studies, urgent care reports/EKG's, custodial records)? Report findings @ -Old charts reviewed as well as transfer documents. This includes the patient's CT read from outside facility. Differential Diagnosis (chest pain, altered mental status, abdominal pain women, abdominal pain men, vaginal bleeding, weakness, fever, dyspnea, syncope, headache, dizziness, GI bleed, back pain, seizure, CVA, palpatations, mental health, musculoskeletal)? @ -Differential Abdominal Pain Women: Appendicitis, Cholecystitis, diverticulosis, ischemic bowel, pancreatitis, hepatitis, UTI, gastroenteritis, AAA, incarcerated hernia, bowel obstruction, constipation, inflammatory bowel, hepatitis, peptic ulcer disease, splenic infarction, perforated viscus, vulvitis, ovarian torsion, PID, kidney stone, placenta abruption, this is not meant to be an all-inclusive list EKG interpreted by me (3pts min.). @ -As above X-rays interpreted by me (1pt min.). @ -None done CT interpreted by me (1pt min.). @ -None done U/S interpreted by me (1pt. min.). @ -None done What testing was considered but not performed or refused? (CT, X-rays, U/S, labs)? Why? @ -Considered CT however imaging was done by the outside facility and they sent over discussed for uploading. What meds were considered but not given or refused? Why? @ -None Did you discuss the management of the patient with other professionals (professionals i.e. , PA, CODING TEAM LEAD, lab, RT, psych nurse, social organization professor, medical anthropology director, teacher, administrative hearing officer, case checker)? Give summary @ -Discussed with Dr. Rice who is on-call for surgery who agreed to consult in the plan. Also discussed the case with admitting physician Dr. Cabrera. He accepted the patient. Was smoking cessation discussed for >3mins.? @ -No Was critical care preformed (if so, how long)? @ -No Were there social determinants of health that impacted care today? How? (Homelessness, low income, unemployed, alcoholism, drug addiction, transportation, low edu. Level, literacy, decrease access to med. care, senior living, rehab)? @ -No Was there de-escalation of care discussed even if they declined (Discuss DNR or withdrawal of care, Hospice)? DNR status @ -No What co-morbidities impacted this encounter? (DM, HTN, Smoking, COPD, CAD, Canc er, CVA, ARF, Chemo, Hep., AIDS, mental health diagnosis, sleep apnea, morbid obesity)? @ -None Was patient admitted / discharged? Hospital course, mention meds given and route, prescriptions, significant lab abnormalities, going to OR and other pertinent info. @ -Based on the patient's presentation and physical exam, was transferred here for surgical consult and evaluation over concern for bowel ischemia from stercoral colitis. Vital signs within acceptable limits. Patient has been nothing by mouth since arrival. Currently is asymptomatic. Labs at the outside facility showed a mildly increased lactic acid 2.7 and a leukocytosis of 14. Patient was started on Levaquin at the outside facility. We'll continue once a day dosing as well as start the patient on every 8hr Flagyl. Patient was in agreement this plan. We also will do maintenance fluids. Patient was in agreement this plan. Repeat labs will be obtained. These were remarkable for a chronic anemia with a hemoglobin of 9.7 which is stable for the patient. Lactic acid now within acceptable limits. I discussed the case with Dr. Rice who was in agreement with the plan and accepted consult. I also admitted the patient to Dr. Cabrera who was in agreement with the plan. Patient admitted in stable condition. Undiagnosed new problem with uncertain prognosis? @ -No Drug Therapy requiring intensive monitoring for toxicity (Heparin, Nitro, Insulin, Cardizem)? @ -No Were any procedures done? @ -No Diagnosis/symptom? @ -Urinary retention Acute, or Chronic, or Acute on Chronic? @ -Acute Uncomplicated (without systemic symptoms) or Complicated (systemic symptoms)? @ -Complicated Side effects of treatment? @ -No Exacerbation, Progression, or Severe Exacerbation? @ -No Poses a threat to life or bodily function? How? (Chest pain, USA, IA, pneumonia, PE, COPD, DKA, ARF, appy, cholecystitis, CVA, Diverticulitis, Homicidal, Suicidal, threat to staff... and all critical care pts) @ -No Diagnosis/symptom? @ -Fecal impaction, stercoral colitis Acute, or Chronic, or Acute on Chronic? @ -Acute Uncomplicated (without systemic symptoms) or Complicated (systemic symptoms)? @ -Complicated Side effects of treatment? @ -none Exacerbation, Progression, or Severe Exacerbation] @ -no Poses a threat to life or bodily function? @ -Possibly, yes - Lab Data Result diagrams: 12/11/22 11:24 12/11/22 11: Lab Results 12/11/22 12/11/22 12/11/22 Range/Units 11:24 11:24 11:24 WBC 9.5 (3.8-10.6) k/uL RBC 3.08 L (3.80-5.40) m/uL Hgb 9.7 L (11.4-16.0) gm/dL Hct 29.7 L (34.0-46.0) % MCV 96.4 (80.0-100.0) fL MCH 31.6 (25.0-35.0) pg MCHC 32.8 (31.0-37.0) g/dL RDW 14.4 (11.5-15.5) % Plt Count 653 H (150-450) k/uL MPV 7.5 Neutrophils % 76 % Lymphocytes % 15 % Monocytes % 5 % Eosinophils % 2 % Basophils % 0 % Neutrophils # 7.2 (1.3-7.7) k/uL Lymphocytes # 1.4 (1.0-4.8) k/uL Monocytes # 0.5 (0-1.0) k/uL Eosinophils # 0.2 (0-0.7) k/uL Basophils # 0.0 (0-0.2) k/uL Sodium 134 L (137-145) mmol/L Potassium 4.7 (3.5-5.1) mmol/L Chloride 105 (98-107) mmol/L Carbon Dioxide 20 L (22-30) mmol/L Anion Gap 9 mmol/L BUN 18 H (7-17) mg/dL Creatinine 0.82 (0.52-1.04) mg/dL Est GFR (CKD-EPI)AfAm 79 (>60 ml/min/1.73 sqM) Est GFR (CKD-EPI)NonAf 69 (>60 ml/min/1.73 sqM) Glucose 136 H (74-99) mg/dL Plasma Lactic Acid [place]ver 1.8 (0.7-2.0) mmol/L Calcium 8.2 L (8.4-10.2) mg/dL Total Bilirubin 0.3 (0.2-1.3) mg/dL AST 21 (14-36) U/L ALT 17 (4-34) U/L Alkaline Phosphatase 89 (38-126) U/L Total Protein 6.1 L (6.3-8.2) g/dL Albumin 3.2 L (3.5-5.0) g/dL Amylase 66 (30-110) U/L Lipase 65 (23-300) U/L - EKG Data -: EKG Interpreted by Me EKG Comments: 12-lead Electrocardiogram Interpretation Note EKG was reviewed and interpreted by myself. 12-lead ECG performed at 1144 is i nterpreted by me as revealing normal sinus rhythm at a rate of 88 beats per minute. [place] is normal. IA interval is 140 ms, QRS durations 112 ms, QTc is 447 ms.. There were no ST or T wave abnormalities to suggest myocardial ischemia or injury. R wave progression across the precordium was satisfactory. By my interpretation this EKG is non-diagnostic for acute ischemia. Disposition Clinical Impression: Stercoral colitis, Abdominal pain, Urinary retention Disposition: ADMITTED IP TO THIS HOSP Condition: Stable Referrals: Yonathan Tapia MD [Primary Care Provider] - 1-2 days Time of Disposition: 12:12
[2022-12-11] MEDS ORDERED: ALPRAZolam 0.25 MG TAB PO PRN (13:16)
[2022-12-11] MEDS ORDERED: ACETAMINOPHEN TAB 325 MG TAB PO PRN (13:20)
[2022-12-11] MEDS ORDERED: ONDANSETRON 4 MG/2 ML VIAL IVP PRN (13:20)
[2022-12-11] MEDS ORDERED: CALCIUM CARBONATE 500 MG CHEWABLE PO PRN (13:20)
[2022-12-11] MEDS ORDERED: MELATONIN 3 MG TABLET PO PRN (13:20)
[2022-12-11] MEDS ORDERED: LACTULOSE 20 GM/30 ML CUP PO PRN (13:20)
--- NOTE | 2022-12-11 13:20 | P.GSCN ---
History of Present Illness Consult date: 12/11/22 History of present illness: CHIEF COMPLAINT: Abdominal pain HISTORY OF PRESENT ILLNESS: This is a 77-year-old female who is a transfer from [facility] for surgical evaluation. Patient reports yesterday evening around 5 PM she started having lower abdominal pain across the lower abdomen. It had been 3 days since her last bowel movement. She has been having flatus. She came into [facility] for evaluation she was found to have urinary retention a Stewart catheter was placed. And patient reports that she had improvement in some of her abdominal discomfort. She had a computed tomography scan of the abdomen and pelvis that did show evidence of fecal impaction mid to distal sigmoid colon and rectum. Sigmoid colon was distended up to 5.3 cm wide. And distention of the rectum up to 9.0 cm. Circumferential wall thickening and fat stranding concerns for rectal wall pneumatosis in the setting of ischemic stercoral colitis. Patient has had recent right hip surgery. Patient had coronary artery disease with cardiac stents placed last week and is on Plavix. Also takes Eliquis for Afib. Patient also has a known history of hemorrhoids in which they have been intermittently bleeding. PAST MEDICAL HISTORY: See below PAST SURGICAL HISTORY: See below MEDICATIONS: See below ALLERGIES: See below SOCIAL HISTORY: No illicit drug use. REVIEW OF SYSTEMS: CONSTITUTIONAL: Denies fever or chills. HEENT: Denies blurred vision, vision changes, or eye pain. Denies hemoptysis CARDIOVASCULAR: Denies chest pain or pressure. RESPIRATORY: No shortness of breath. GASTROINTESTINAL: See HPI for pertinent findings HEMATOLOGIC: Denies bleeding disorders. GENITOURINARY: Denies any blood in urine or increased urinary frequency. SKIN: Denies pruitis. Denies rash. PHYSICAL EXAM: VITAL SIGNS: Reviewed GENERAL: Well-developed in no acute distress. ABDOMEN: Soft. Nondistended. Tenderness with palpation across the lower abdomen. NEUROLOGIC: Alert and oriented. Cranial nerves II through XII grossly intact. Rectal: Soft fecal bowel noted in the rectum. Large hemorrhoids with small amount of bleeding noted LABORATORY DATA: WBC 9.5 hgb 9.7 platelets 653 Na 134 potassium 4.7 creatinine 0.82 Lactic acid 1.8 IMAGING: computed tomography scan of the abdomen and pelvis that did show evidence of fecal impaction mid to distal sigmoid colon and rectum. Sigmoid colon was distended up to 5.3 cm wide. And distention of the rectum up to 9.0 cm. Circumferential wall thickening and fat stranding concerns for rectal wall pneumatosis in the setting of ischemic stercoral colitis. ASSESSMENT: 1. Fecal impaction 2. Possible rectal wall pneumatosis in the setting of ischemic stercoral colitis 3. Urinary retention PLAN: -Patient scheduled for flexible sigmoidoscopy with disimpaction today with Dr. Rice -Keep patient nothing by mouth -Continue supportive care Physician Margin Trimmer note has been reviewed by physician. Signing provider agrees with the documented findings, assessment, and plan of care. I have personally seen and examined the patient, reviewed the SURFACE WATER MANAGER /PAs history, exam and MDM and agree with the assessment and plan as written. Based on total visit time, I have performed more than 50% of the visit. As above: Patient with significant impaction on CAT scan and exam. Possible pneumatosis noted. We'll proceed with flexible sigmoidoscopy with disimpaction. Continue antibiotics. Monitor closely. Past Medical History Past Medical History: Atrial Fibrillation, CVA/TIA, Diabetes Mellitus, Hyperlipidemia, Hypertension, Osteoarthritis (OA) Additional Past Medical History / Comment(s): VARICOSE VEINS, hx bowel obstruction and had TIA after surgery in 11/2015- some loss of memory, irregular bowel movements, blockage of left carotid artery, anemia History of Any Multi-Drug Resistant Organisms: None Reported Past Surgical History: Adenoidectomy, Appendectomy, Bowel Resection, Breast Surgery, Hernia Repair, Tonsillectomy Additional Past Surgical History / Comment(s): MARANDA BREAST Biopsy, rt lumpectomy, HEMORRHOIDECTOMY, fx LEFT ANKLE ORIF, RT THUMB TENDON, NEUROMA RT FOOT, LEFT OVARY AND TUBE removed. , LASER SURG RIGHT LEG VEINS., bowel surgery for twisted bowel 1960, bowel resection 11/2015, bleeding ulcer,Excisional of left breast, right hip replacement, Past Anesthesia/Blood Transfusion Reactions: No Reported Reaction Additional Past Anesthesia/Blood Transfusion Reaction / Comm: no hx of problems with prior blood transfusion Past Psychological History: Anxiety Smoking Status: Never smoker Past Alcohol Use History: None Reported Past Drug Use History: None Reported - Past Family History Father Family Medical History: Cancer Additional Family Medical History / Comment(s): KIDNEY CA Mother Family Medical History: Cancer Additional Family Medical History / Comment(s): OVARIAN CA, LEUKEMIA Medications and Allergies Home Medications Medication Instructions Recorded Confirmed Type Cyanocobalamin [Vitamin B-12] 1,000 mg PO W/SUPPER 09/14/14 12/11/22 History Ferrous Sulfate [Iron (65 MG 325 mg PO W/SUPPER 09/14/14 12/11/22 History Elemental)] ALPRAZolam [Xanax] 0.25 mg PO DAILY PRN 07/02/16 12/11/22 History Apixaban [Eliquis] 5 mg PO BID 07/02/16 12/11/22 History Cranberry Fruit Extract [Cranberry] 500 mg PO W/SUPPER 07/02/16 12/11/22 History Insulin Lispro [humaLOG Kwikpen] See Protocol SQ ACHS PRN 07/02/16 12/11/22 History Cholestyramine (with Sugar) 4 gm PO BID 02/01/18 12/11/22 History [Questran Packet] Alendronate Sodium 70 mg PO WE 08/04/19 12/11/22 History metFORMIN HCL [Glucophage] 500 mg PO BID 08/04/19 12/11/22 History Dapagliflozin Propanediol [Farxiga] 10 mg PO DAILY 02/16/20 12/11/22 History sulfaSALAzine [Azulfidine] 500 mg PO Q6HR 02/16/20 12/11/22 History Amiodarone HCl [Pacerone] 200 mg PO BID 09/18/22 12/11/22 History Furosemide [Lasix] 20 mg PO DAILY 09/18/22 12/11/22 History Ketotifen 0.025% Ophth Soln 1 drop BOTH EYES BID 09/18/22 12/11/22 History [Zaditor] Meclizine HCl [Antivert] 25 mg PO BID 09/18/22 12/11/22 History Metoprolol Tartrate [Lopressor] 50 mg PO BID 09/18/22 12/11/22 History Atorvastatin [Lipitor] 20 mg PO HS 12/01/22 12/11/22 History Ergocalciferol [Vitamin D2 (1250 1,250 mcg PO WE 12/01/22 12/11/22 History Mcg = 71398 Iu)] Potassium Chloride [Klor-Con 10 ER] 10 meq PO DAILY 12/01/22 12/11/22 History Sertraline [Zoloft] 100 mg PO DAILY 12/01/22 12/11/22 History Clopidogrel [Plavix] 75 mg PO DAILY 30 Days #30 tab 12/04/22 12/11/22 Rx Nitrofurantoin Monohyd/M-Cryst 100 mg PO Q12HR 12/11/22 12/11/22 History [Macrobid] Allergies Allergy/AdvReac Type Severity Reaction Status Date / Time amoxicillin trihydrate Allergy Unknown Rash/Hives Verified 12/11/22 11:30 [From Augmentin] naproxen Allergy Unknown Itching Verified 12/11/22 11:30 nystatin Allergy Unknown Red Verified 12/11/22 11:30 Burning Skin and Rash potassium clavulanate Allergy Unknown Rash/Hives Verified 12/11/22 11:30 [From Augmentin] latex Allergy Rash/Hives Verified 12/11/22 11:30 Surgical - Exam Vital Signs Temp Pulse Resp BP Pulse Ox 97.5 F L 86 16 112/61 99 12/11/22 10:36 12/11/22 10:36 12/11/22 10:36 12/11/22 10:36 12/11/22 10:36 Results - Labs 12/11/22 11:24 12/11/22 11:24 Abnormal Lab Results - Last 24 Hours (Table) 12/11/22 12/11/22 Range/Units 11:24 11:24 RBC 3.08 L (3.80-5.40) m/uL Hgb 9.7 L (11.4-16.0) gm/dL Hct 29.7 L (34.0-46.0) % Plt Count 653 H (150-450) k/uL Sodium 134 L (137-145) mmol/L Carbon Dioxide 20 L (22-30) mmol/L BUN 18 H (7-17) mg/dL Glucose 136 H (74-99) mg/dL Calcium 8.2 L (8.4-10.2) mg/dL Total Protein 6.1 L (6.3-8.2) g/dL Albumin 3.2 L (3.5-5.0) g/dL Diabetes panel 12/11/22 Range/Units 11:24 Sodium 134 L (137-145) mmol/L Potassium 4.7 (3.5-5.1) mmol/L Chloride 105 (98-107) mmol/L Carbon Dioxide 20 L (22-30) mmol/L BUN 18 H (7-17) mg/dL Creatinine 0.82 (0.52-1.04) mg/dL Glucose 136 H (74-99) mg/dL Calcium 8.2 L (8.4-10.2) mg/dL AST 21 (14-36) U/L ALT 17 (4-34) U/L Alkaline Phosphatase 89 (38-126) U/L Total Protein 6.1 L (6.3-8.2) g/dL Albumin 3.2 L (3.5-5.0) g/dL Calcium panel 12/11/22 Range/Units 11:24 Calcium 8.2 L (8.4-10.2) mg/dL Albumin 3.2 L (3.5-5.0) g/dL Pituitary panel 12/11/22 Range/Units 11:24 Sodium 134 L (137-145) mmol/L Potassium 4.7 (3.5-5.1) mmol/L Chloride 105 (98-107) mmol/L Carbon Dioxide 20 L (22-30) mmol/L BUN 18 H (7-17) mg/dL Creatinine 0.82 (0.52-1.04) mg/dL Glucose 136 H (74-99) mg/dL Calcium 8.2 L (8.4-10.2) mg/dL Adrenal panel 12/11/22 Range/Units 11:24 Sodium 134 L (137-145) mmol/L Potassium 4.7 (3.5-5.1) mmol/L Chloride 105 (98-107) mmol/L Carbon Dioxide 20 L (22-30) mmol/L BUN 18 H (7-17) mg/dL Creatinine 0.82 (0.52-1.04) mg/dL Glucose 136 H (74-99) mg/dL Calcium 8.2 L (8.4-10.2) mg/dL Total Bilirubin 0.3 (0.2-1.3) mg/dL AST 21 (14-36) U/L ALT 17 (4-34) U/L Alkaline Phosphatase 89 (38-126) U/L Total Protein 6.1 L (6.3-8.2) g/dL Albumin 3.2 L (3.5-5.0) g/dL
[2022-12-11] MEDS ORDERED: NITROFURANTOIN MONOHYD/M-CRYST 100 MG CAP PO SCH (13:30)
[2022-12-11] MEDS ORDERED: sulfaSALAzine 500 MG TAB PO SCH (13:30)
[2022-12-11] MEDS ORDERED: PROPOFOL 10 MG/ML 20 ML VIAL IV ONE (13:36)
[2022-12-11] MEDS ORDERED: LIDOCAINE 1% INJ 10MG/ML (20 ML MDV) ONE (13:36)
[2022-12-11] MEDS ORDERED: PHENYLEPHRINE-0.9% NACL SYG 1,000 MCG/10 ML SYRINGE ONE (13:36)
[2022-12-11 13:48] VITALS: RESP 18
[2022-12-11] MEDS ORDERED: IV FLUID CONTINUATION 950 ML IV ONE (13:54)
--- NOTE | 2022-12-11 14:12 | P.PCN ---
Date of Procedure: 12/11/22 Procedure(s) Performed: PREOPERATIVE DIAGNOSIS: Fecal impaction POSTOPERATIVE DIAGNOSIS: Same PROCEDURE: Flexible sigmoidoscopy with sigmoidoscopy with disimpaction ANESTHESIA: MAC SURGEON: Humphrey Rice M.D. SPECIMENS: None ENDOSCOPIC PROCEDURE: The patient was placed on the endoscopy table in the left decubitus position. Manually a large volume of at least 12 ounces of stool was evacuated. The Olympus colonoscope was inserted into the anus and passed under direct relation to the sigmoid colon. Approximate 500 mL of saline was then used to irrigate the sigmoid and rectum. Further manual disimpaction took place. The visualized mucosa of the rectum and sigmoid colon appeared viable with no signs of ischemia or visible changes of pneumatosis. The patient had small circumferential hemorrhoids. The sphincter tone appeared normal. Some residual stool was still present at the completion of the procedure but soft in nature. The patient was taken to the recovery room in stable condition per anesthesia guidelines. RECOMMENDATIONS: Begin lactulose twice a day. Begin soapsuds enemas today. Will follow.
[2022-12-11 14:36] VITALS: TEMP 97.7
[2022-12-11 14:59] VITALS: BP 111/63; PULSE 82
[2022-12-11] MEDS ORDERED: metroNIDAZOLE-NS PMX 500 MG in SALINE 1 100ML.BAG IVPB SCH (16:00)
[2022-12-11 16:48] LABS: Glucose,Whole Blood 182 mg/dL (70-110)
[2022-12-11] MEDS ORDERED: SODIUM BICARB 8.4% 50 ML SYR (1 MEQ/ML) ONE (16:52)
--- NOTE | 2022-12-11 17:22 | P.HPIM ---
History of Present Illness H&P Date: 12/11/22 Chief Complaint: Lower abdominal pain This is a pleasant 77-year-old patient who follows with Dr. Yonathan Tapia. Chronic stable medical conditions include hypertension, hyperlipidemia, diabetes, prostatitis, atrial fibrillation. Crohn's disease. Has had 12 inches of small bowel removed. Averages about 4-5 bowel movements a day. coronary bypass in December 2021 - . On November 26 underwent right hip replacement at [place]. Was discharged on November 28. Was told to hold off using her eliquis. Patient recently the hospital from December 01 through December 04. Had a stent placed to [facility] by Dr. Gates. Patient was transferred here from [facility] for surgical evaluation. Patient's had a Stewart catheter since her hip surgery. It was removed 2 days ago. Following that patient's only having trickles of urine. Presented to [facility] for the same. Was having deep pelvic discomfort and pain. Also no bowel movement for last 3 days. Computed tomography scan done showed possible fecal impaction and rectal wall pneumatosis and ischemic stercoral colitis. She did receive Levaquin. Patient felt much relieved after Stewart catheter was placed. Patient's son at the bedside. They informed me that patient be going down for disimpaction under anesthesia. Patient's nothing by mouth. Otherwise feels comfortable. Review of systems: GEN.: Tired EYES: None HEENT: None NECK: None RESPIRATORY: As above CARDIOVASCULAR: None GASTROINTESTINAL: As above GENITOURINARY: As above MUSCULOSKELETAL: Joint pains LYMPHATICS: None HEMATOLOGICAL: None PSYCHIATRY: None NEUROLOGICAL: Currently using a walker Past medical history to include: Hypertension, hyperlipidemia, diabetes, atrial fibrillation, osteoarthritis, coronary artery disease with a bypass in December 31 and . Crohn's disease with 12 inches of small bowel removed many years ago. Stent to LAD November 2022 Social history: Patient smoked for about 15 years stopped in . Lives with 2 sons and daughter. Physical examination: VITAL SIGNS: 97.5, 86, 16, 112/61, 99% room air GENERAL: Reclining in bed, not in distress EYES: Pupils equal. Conjunctiva normal. HEENT: External appearance of nose and ears normal, oral cavity grossly normal. NECK: JVD not raised; masses not palpable. HEART: First and second heart sounds are normal; no edema. LUNGS: Respiratory rate normal; lung solorio clear ABDOMEN: Soft, nontender, liver spleen not palpable, no masses palpable. Stewart catheter PSYCH: Alert and oriented x3; mood and affect normal. MUSCULOSKELETAL:No Clubbing/cyanosis;muscles-grossly intact. OA INVESTIGATIONS, reviewed in the clinical context: December 11: White count 9.5 hemoglobin 9.7 platelets 653 sodium 134 potassium 4.7 BUN 18 creatinine 0.82 EKG tracing personally reviewed by me-Q wave in inferior leads normal sinus rhythm. 2-D echocardiogram [12/02/2022]: EF 45-50% no wall motion abnormality. Moderate MR. Trace TR. Assessment and plan: -Severe stool impaction possibly from urinary retention. Dr. Rice general surgery consulted. Plan for evacuation and anesthesia. Patient nothing by mouth -coronary bypass in December 2021. Stent to LAD 2022 Lopressor 50 mg twice a day -Chronic congestive heart failure, combination of systolic and diastolic dysfunction. EF 45-50%: Stable -Diabetes mellitus type 2 on oral hypoglycemic Glucophage farxiga. Accu-Cheks and sliding scale insulin -Paroxysmal atrial fibrillation currently in sinus rhythm. Amiodarone. Eliquis-. Lopressor -Chronic Crohn's disease. Has had 12 inches of small bowel removed many years ago. Baseline 4-5 bowel movements a day. Sulfasalazine. Cholestyramine. -Essential hypertension Lopressor -Hyperlipidemia Lipitor -Depression, anxiety Zoloft Discussed with patient and son at the bedside. Dr. Rice consulted. He is planning evacuation of stool or anesthesia. Questions answered Past Medical History Past Medical History: Atrial Fibrillation, CVA/TIA, Diabetes Mellitus, Hyperlipidemia, Hypertension, Osteoarthritis (OA) Additional Past Medical History / Comment(s): VARICOSE VEINS, hx bowel obstruction and had TIA after surgery in 11/2015- some loss of memory, irregular bowel movements, blockage of left carotid artery, anemia History of Any Multi-Drug Resistant Organisms: None Reported Past Surgical History: Adenoidectomy, Appendectomy, Bowel Resection, Breast Surgery, Hernia Repair, Tonsillectomy Additional Past Surgical History / Comment(s): MARANDA BREAST Biopsy, rt lumpectomy, HEMORRHOIDECTOMY, fx LEFT ANKLE ORIF, RT THUMB TENDON, NEUROMA RT FOOT, LEFT OVARY AND TUBE removed. , LASER SURG RIGHT LEG VEINS., bowel surgery for twisted bowel 1960, bowel resection 11/2015, bleeding ulcer,Excisional of left breast, right hip replacement, Past Anesthesia/Blood Transfusion Reactions: No Reported Reaction Additional Past Anesthesia/Blood Transfusion Reaction / Comment(s): no hx of problems with prior blood transfusion Past Psychological History: Anxiety Smoking Status: Never smoker Past Alcohol Use History: None Reported Additional Past Alcohol Use History / Comment(s): quit smoking 1991,smoked approx 25 yrs- 1ppd Past Drug Use History: None Reported - Past Family History Father Family Medical History: Cancer Additional Family Medical History / Comment(s): KIDNEY CA Mother Family Medical History: Cancer Additional Family Medical History / Comment(s): OVARIAN CA, LEUKEMIA Medications and Allergies Home Medications Medication Instructions Recorded Confirmed Type Cyanocobalamin [Vitamin B-12] 1,000 mg PO W/SUPPER 09/14/14 12/11/22 History Ferrous Sulfate [Iron (65 MG 325 mg PO W/SUPPER 09/14/14 12/11/22 History Elemental)] ALPRAZolam [Xanax] 0.25 mg PO DAILY PRN 07/02/16 12/11/22 History Apixaban [Eliquis] 5 mg PO BID 07/02/16 12/11/22 History Cranberry Fruit Extract [Cranberry] 500 mg PO W/SUPPER 07/02/16 12/11/22 History Insulin Lispro [humaLOG Kwikpen] See Protocol SQ ACHS PRN 07/02/16 12/11/22 History Cholestyramine (with Sugar) 4 gm PO BID 02/01/18 12/11/22 History [Questran Packet] Alendronate Sodium 70 mg PO WE 08/04/19 12/11/22 History metFORMIN HCL [Glucophage] 500 mg PO BID 08/04/19 12/11/22 History Dapagliflozin Propanediol [Farxiga] 10 mg PO DAILY 02/16/20 12/11/22 History sulfaSALAzine [Azulfidine] 500 mg PO Q6HR 02/16/20 12/11/22 History Amiodarone HCl [Pacerone] 200 mg PO BID 09/18/22 12/11/22 History Furosemide [Lasix] 20 mg PO DAILY 09/18/22 12/11/22 History Ketotifen 0.025% Ophth Soln 1 drop BOTH EYES BID 09/18/22 12/11/22 History [Zaditor] Meclizine HCl [Antivert] 25 mg PO BID 09/18/22 12/11/22 History Metoprolol Tartrate [Lopressor] 50 mg PO BID 09/18/22 12/11/22 History Atorvastatin [Lipitor] 20 mg PO HS 12/01/22 12/11/22 History Ergocalciferol [Vitamin D2 (1250 1,250 mcg PO WE 12/01/22 12/11/22 History Mcg = 59444 Iu)] Potassium Chloride [Klor-Con 10 ER] 10 meq PO DAILY 12/01/22 12/11/22 History Sertraline [Zoloft] 100 mg PO DAILY 12/01/22 12/11/22 History Clopidogrel [Plavix] 75 mg PO DAILY 30 Days #30 tab 12/04/22 12/11/22 Rx Nitrofurantoin Monohyd/M-Cryst 100 mg PO Q12HR 12/11/22 12/11/22 History [Macrobid] Allergies Allergy/AdvReac Type Severity Reaction Status Date / Time amoxicillin trihydrate Allergy Unknown Rash/Hives Verified 12/11/22 11:30 [From Augmentin] naproxen Allergy Unknown Itching Verified 12/11/22 11:30 nystatin Allergy Unknown Red Verified 12/11/22 11:30 Burning Skin and Rash potassium clavulanate Allergy Unknown Rash/Hives Verified 12/11/22 11:30 [From Augmentin] latex Allergy Rash/Hives Verified 12/11/22 11:30 Physical Exam Vitals: Vital Signs Temp Pulse Pulse Resp BP BP Pulse Ox 12/11/22 14:54 82 18 111/63 100 12/11/22 14:31 77 18 104/54 99 12/11/22 14:21 97.7 F 79 16 94/50 97 12/11/22 13:36 86 18 99 12/11/22 10:36 97.5 F L 86 16 112/61 99 Intake and Output 12/11/22 12/11/22 12/11/22 06:59 14:59 22:59 Intake Total 250 Output Total 650 Balance -400 Intake: IV 250 Output: Urine 650 Other: Weight 61.689 kg 61.689 kg Results CBC & Chem 7: 12/11/22 11:24 12/11/22 11:24 Labs: Abnormal Lab Results - Last 24 Hours (Table) 12/11/22 12/11/22 12/11/22 Range/Units 11:24 11:24 16:28 RBC 3.08 L (3.80-5.40) m/uL Hgb 9.7 L (11.4-16.0) gm/dL Hct 29.7 L (34.0-46.0) % Plt Count 653 H (150-450) k/uL Sodium 134 L (137-145) mmol/L Carbon Dioxide 20 L (22-30) mmol/L BUN 18 H (7-17) mg/dL Glucose 136 H (74-99) mg/dL POC Glucose (mg/dL) 182 H (70-110) mg/dL Calcium 8.2 L (8.4-10.2) mg/dL Total Protein 6.1 L (6.3-8.2) g/dL Albumin 3.2 L (3.5-5.0) g/dL
[2022-12-11] MEDS ORDERED: CYANOCOBALAMIN 500 MCG TAB PO SCH (17:30)
[2022-12-11] MEDS ORDERED: metFORMIN 500 MG TAB PO SCH (17:30)
--- NOTE | 2022-12-11 17:41 | P.EN ---
Code Blue Note Called to patient bedside for CODE BLUE overhead called at 1637. Pt was found to be in PEA on initial pulse check, and had rec'd 1 round of epinephrine by the time I was at bedside at 1640. CPR continued and patient had ROSC by 1642, patient was given bicarb push. Pt intubated at bedside with good color return. She lost pulse again at 1647 and CPR resumed. She rec'd an additional round of epinephrine and round of bicarb push. Second pulse check noted patient in VFib, she was shocked at 360J. CPR continued and patient rec'd total of 3 additional pushes of epinephrine, 1 300mg amiodarone, 2 additional pushes of bicarb, and 1 x CaCl push. Pt was also shocked one additional time. Family notified at bedside by RN and decision was made to discontinue resuscitation given lack of ROSC or improvement at 17:02. Pt at bedside, patients' attending and family were notified.
--- NOTE | 2022-12-11 18:17 | P.PN ---
Progress Note - Text Progress Note Date: 12/11/22 I was contacted by Dr. Cabrera after a CODE BLUE was called on this patient and she subsequently . After endoscopy patient went to phase I recovery where she was apparently awake and talking without discomfort. Spoke with the patient's son by phone. She apparently had an episode of emesis and possible aspiration shortly after returning to the room. A CODE BLUE was subsequently called. The patient had CPR and resuscitation and this was ultimately unsuccessful. Per the son she was not having abdominal pain upon return to the fifth floor. My condolences were passed to the patient's son. All questions were answered. I notified [place] to call me if he had any additional questions.
[2022-12-11] MEDS ORDERED: APIXABAN 5 MG TAB PO SCH (21:00)
[2022-12-11] MEDS ORDERED: LACTULOSE 20 GM/30 ML CUP PO SCH (21:00)
[2022-12-11] MEDS ORDERED: HEPARIN SODIUM,PORCINE 5,000 UNIT/ML 1 ML VIAL SQ SCH (21:00)
[2022-12-11] MEDS ORDERED: KETOTIFEN 0.025% OPHTH DROPS 5 ML BTL BOTH EYES SCH (21:00)
[2022-12-11] MEDS ORDERED: METOPROLOL TARTRATE 50 MG TAB PO SCH (21:00)
[2022-12-11] MEDS ORDERED: CHOLESTYRAMINE (WITH SUGAR) 4 GM PACKET PO SCH (21:00)
[2022-12-11] MEDS ORDERED: AMIODARONE 200 MG TAB PO SCH (21:00)
[2022-12-11] MEDS ORDERED: ATORVASTATIN 20 MG TAB PO SCH (21:00)
[2022-12-12] MEDS ORDERED: POTASSIUM CHLORIDE ER 10 MEQ TAB.ER.PRT PO SCH (09:00)
[2022-12-12] MEDS ORDERED: LEVOFLOXACIN 500MG-D5W PMX 500 MG in DEXTROSE/WATER 1 100ML.BAG IVPB SCH (09:00)
[2022-12-12] MEDS ORDERED: SERTRALINE 100 MG TAB PO SCH (09:00)
[2022-12-12] MEDS ORDERED: DAPAGLIFLOZIN PROPANEDIOL 10 MG TABLET PO SCH (09:00)
[2022-12-12] MEDS ORDERED: CLOPIDOGREL 75 MG TAB PO SCH (09:00)
--- NOTE | 2022-12-12 14:10 | P.DS ---
Providers Date of admission: 12/11/22 12:21 Expected date of discharge: 12/11/22 (Patient ) Attending physician: Stephen Cabrera Consults: 12/11/22 12:20 Consult Physician Routine Consulting Provider: Humphrey Rice Consult Reason/Comments: stercoral colitis Do you want consulting provider notified?: Already Contacted Primary care physician: Yonathan Tapia [place] [facility] Course: Chief Complaint: Lower abdominal pain This is a pleasant 77-year-old patient who follows with Dr. Yonathan Tapia. Chronic stable medical conditions include hypertension, hyperlipidemia, diabetes, prostatitis, atrial fibrillation. Crohn's disease. Has had 12 inches of small bowel removed. Averages about 4-5 bowel movements a day. coronary bypass in December 2021 - . On November 26 underwent right hip replacement at [place]. Was discharged on November 28. Was told to hold off using her eliquis. Patient recently the hospital from December 01 through December 04. Had a stent placed to LAD by Dr. Gates. Patient was transferred here from [facility] for surgical evaluation. Patient's had a Stewart catheter since her hip surgery. It was removed 2 days ago. Following that patient's only having trickles of urine. Presented to [facility] for the same. Was having deep pelvic discomfort and pain. Also no bowel movement for last 3 days. Computed tomography scan done showed possible fecal impaction and rectal wall pneumatosis and ischemic stercoral colitis. She did receive Levaquin. Patient felt much relieved after Stewart catheter was placed. Patient's son at the bedside. They informed me that patient be going down for disimpaction under anesthesia. Patient's nothing by mouth. Otherwise feels comfortable. Later this afternoon patient was taken to the OR by Dr. Rice. Large volume of fecal disimpaction was carried out along with flexible sigmoidoscopy. Patient mucosa was reported to be rather normal with a good sphincter stone. Patient arrived to the floor patient had a cardiac arrest. Initial rhythm PEA. Code was run by Dr. Joe. I arrived at the scene. Patient succumbed to the same. and . Patient's son was present. I did speak to him. I also spoke to the code team. Given her cardiac history likely cause of was CAD. Past medical history to include: Hypertension, hyperlipidemia, diabetes, atrial fibrillation, osteoarthritis, coronary artery disease with a bypass in December 31 and [place]. Crohn's disease with 12 inches of small bowel removed many years ago. Stent to LAD Nov Social history: Patient smoked for about 15 years stopped in . Lives with 2 sons and daughter. INVESTIGATIONS, reviewed in the clinical context: December 11: White count 9.5 hemoglobin 9.7 platelets 653 sodium 134 potassium 4.7 BUN 18 creatinine 0.82 EKG tracing personally reviewed by me-Q wave in inferior leads normal sinus rhythm. 2-D echocardiogram [12/02/2022]: EF 45-50% no wall motion abnormality. Moderate MR. Trace TR. Cause of : Coronary artery disease Assessment and plan: -Severe stool impaction possibly from urinary retention. Dr. Rice general surgery consulted. Plan for evacuation and anesthesia. Patient nothing by mouth Large amount of stool was disimpacted along with sigmoidoscopy. -coronary bypass in December 2021. Stent to LAD 2022 Lopressor 50 mg twice a day -Chronic congestive heart failure, combination of systolic and diastolic dysfunction. EF 45-50%: Stable -Diabetes mellitus type 2 on oral hypoglycemic Glucophage farxiga. Accu-Cheks and sliding scale insulin -Paroxysmal atrial fibrillation currently in sinus rhythm. Amiodarone. Eliquis-. Lopressor -Chronic Crohn's disease. Has had 12 inches of small bowel removed many years ago. Baseline 4-5 bowel movements a day. Sulfasalazine. Cholestyramine. -Essential hypertension Lopressor -Hyperlipidemia Lipitor -Depression, anxiety Zoloft Disposition: Patient Plan - Discharge Summary Discharge Rx Participant: No New Discharge Prescriptions: No Action Cyanocobalamin [Vitamin B-12] 1,000 mg PO W/SUPPER Ferrous Sulfate [Iron (65 MG Elemental)] 325 mg PO W/SUPPER ALPRAZolam [Xanax] 0.25 mg PO DAILY PRN PRN Reason: Anxiety Apixaban [Eliquis] 5 mg PO BID Cranberry Fruit Extract [Cranberry] 500 mg PO W/SUPPER Insulin Lispro [humaLOG Kwikpen] See Protocol SQ ACHS PRN PRN Reason: Blood Sugar - High Cholestyramine (with Sugar) [Questran Packet] 4 gm PO BID Alendronate Sodium 70 mg PO WE metFORMIN HCL [Glucophage] 500 mg PO BID Dapagliflozin Propanediol [Farxiga] 10 mg PO DAILY sulfaSALAzine [Azulfidine] 500 mg PO Q6HR Furosemide [Lasix] 20 mg PO DAILY Atorvastatin [Lipitor] 20 mg PO HS Potassium Chloride [Klor-Con 10 ER] 10 meq PO DAILY Amiodarone HCl [Pacerone] 200 mg PO BID Ketotifen 0.025% Ophth Soln [Zaditor] 1 drop BOTH EYES BID Meclizine HCl [Antivert] 25 mg PO BID Metoprolol Tartrate [Lopressor] 50 mg PO BID Ergocalciferol [Vitamin D2 (1250 Mcg = 89165 Iu)] 1,250 mcg PO WE Sertraline [Zoloft] 100 mg PO DAILY Clopidogrel [Plavix] 75 mg PO DAILY 30 Days #30 tab Nitrofurantoin Monohyd/M-Cryst [Macrobid] 100 mg PO Q12HR Discharge Medication List Cyanocobalamin [Vitamin B-12] 1,000 mg PO W/SUPPER 09/14/14 [History] Ferrous Sulfate [Iron (65 MG Elemental)] 325 mg PO W/SUPPER 09/14/14 [History] ALPRAZolam [Xanax] 0.25 mg PO DAILY PRN 07/02/16 [History] Apixaban [Eliquis] 5 mg PO BID 07/02/16 [History] Cranberry Fruit Extract [Cranberry] 500 mg PO W/SUPPER 07/02/16 [History] Insulin Lispro [humaLOG Kwikpen] See Protocol SQ ACHS PRN 07/02/16 [History] Cholestyramine (with Sugar) [Questran Packet] 4 gm PO BID 02/01/18 [History] Alendronate Sodium 70 mg PO WE 08/04/19 [History] metFORMIN HCL [Glucophage] 500 mg PO BID 08/04/19 [History] Dapagliflozin Propanediol [Farxiga] 10 mg PO DAILY 02/16/20 [History] sulfaSALAzine [Azulfidine] 500 mg PO Q6HR 02/16/20 [History] Amiodarone HCl [Pacerone] 200 mg PO BID 09/18/22 [History] Furosemide [Lasix] 20 mg PO DAILY 09/18/22 [History] Ketotifen 0.025% Ophth Soln [Zaditor] 1 drop BOTH EYES BID 09/18/22 [History] Meclizine HCl [Antivert] 25 mg PO BID 09/18/22 [History] Metoprolol Tartrate [Lopressor] 50 mg PO BID 09/18/22 [History] Atorvastatin [Lipitor] 20 mg PO HS 12/01/22 [History] Ergocalciferol [Vitamin D2 (1250 Mcg = 16669 Iu)] 1,250 mcg PO WE 12/01/22 [History] Potassium Chloride [Klor-Con 10 ER] 10 meq PO DAILY 12/01/22 [History] Sertraline [Zoloft] 100 mg PO DAILY 12/01/22 [History] Clopidogrel [Plavix] 75 mg PO DAILY 30 Days #30 tab 12/04/22 [Rx] Nitrofurantoin Monohyd/M-Cryst [Macrobid] 100 mg PO Q12HR 12/11/22 [History] Follow up Appointment(s)/Referral(s): Yonathan Tapia MD [Primary Care Provider] - 1-2 days Discharge Disposition: - Preliminary Cause of Preliminary Cause of : Coronary artery disease
== END 2022-12-11 18:51 | disposition expired | DRG 394 ==
LOC: EC 10:34 → 5NMEDONC 12:21
PROVIDERS: ADMIT Hospitalist; ATTEND Hospitalist
PROC: 3E033XZ Introduction of Vasopressor into Peripheral Vein, Percutaneous Approach (ICD-10-PCS; 2022-12-11)
PROC: 5A12012 Performance of Cardiac Output, Single, Manual (ICD-10-PCS; 2022-12-11)
PROC: 5A2204Z Restoration of Cardiac Rhythm, Single (ICD-10-PCS; 2022-12-11)
PROC: 0BH18EZ Insertion of Endotracheal Airway into Trachea, Via Natural or Artificial Opening Endoscopic (ICD-10-PCS; 2022-12-11)
PROC: 0DCN8ZZ Extirpation of Matter from Sigmoid Colon, Via Natural or Artificial Opening Endoscopic (ICD-10-PCS; principal; 2022-12-11 07:30)
DX: K63.89 Other specified diseases of intestine (principal); I50.42 Chronic combined systolic (congestive) and diastolic (congestive) heart failure; K55.8 Other vascular disorders of intestine; K50.90 Crohn's disease, unspecified, without complications; I46.9 Cardiac arrest, cause unspecified; I49.01 Ventricular fibrillation; I11.0 Hypertensive heart disease with heart failure; K56.41 Fecal impaction; I48.0 Paroxysmal atrial fibrillation; E11.9 Type 2 diabetes mellitus without complications; T17.918A Gastric contents in respiratory tract, part unspecified causing other injury, initial encounter; I69.811 Memory deficit following other cerebrovascular disease; F32.A Depression, unspecified; E78.5 Hyperlipidemia, unspecified; D53.9 Nutritional anemia, unspecified; F41.9 Anxiety disorder, unspecified; K64.9 Unspecified hemorrhoids; I25.10 Atherosclerotic heart disease of native coronary artery without angina pectoris; R33.9 Retention of urine, unspecified; Z96.641 Presence of right artificial hip joint; Z95.1 Presence of aortocoronary bypass graft; Z90.49 Acquired absence of other specified parts of digestive tract; Z95.5 Presence of coronary angioplasty implant and graft; Z79.01 Long term (current) use of anticoagulants; Z79.84 Long term (current) use of oral hypoglycemic drugs; Z87.11 Personal history of peptic ulcer disease; Z87.891 Personal history of nicotine dependence; Z79.899 Other long term (current) drug therapy; Z79.02 Long term (current) use of antithrombotics/antiplatelets; Z88.6 Allergy status to analgesic agent; Z88.0 Allergy status to penicillin; Z91.040 Latex allergy status
CPT/HCPCS: 36415; 45330; 80053; 82150; 83605; 83690; 85025; 87040; 93005; 99285